=== PATIENT | male | born 1950 | race Caucasian/White ===

== ENCOUNTER 2023-01-14 12:19 | Inpatient (IN) ==
[~2023-01-14 12:19] MED LIST: SODIUM CHLORIDE 0.9% 1,000 ML IV ONE
[2023-01-14] MEDS ORDERED: OPTIRAY 320 500ml IV ONE (12:36)
--- NOTE | 2023-01-14 12:42 | CT Scan Report ---
CT head/brain wo con CLINICAL HISTORY: 72 years-old Male with neuro deficit, acute stroke suspected. Acute stroke like sy mptoms TECHNIQUE: Multiple axial CT images of the head were obtained without contrast. A dose lowering tech nique was utilized adhering to the principles of ALARA. COMPARISON: CTA head and neck of same day. FINDINGS: No acute intracranial hemorrhage, midline shift, intracranial mass, hydrocephalus, territorial ischem ia or abnormal extra-axial collection. Involutional changes with mild white matter hypodensities sugg estive of chronic microvascular ischemic disease. The calvarium is intact. Minimal mucosal thickening of the paranasal sinuses. The mastoid air cells are clear. Unremarkable soft tissues and orbits. IMPRESSION: No acute intracranial abnormality identified. ACT 112: Negative or not required by law. The above report was generated using voice recognition software. It may contain grammatical, syntax o r spelling errors. Electronically signed by: Tim Orantes M.D. 01/14/2023 12:41 PM
--- NOTE | 2023-01-14 12:56 | Emergency Department Note ---
Impression & Plan Stroke-like symptoms, Positive Lyme disease serology, Hypertension ED Provider Note NAME: FABIEN TOURE AGE: 72 SEX: M ARRIVES VIA: Ambulance INFORMANT: Patient ED PROVIDER(S): Galen Azevedo MD CHIEF COMPLAINT: facial numbness, aphasia, referred. PLAN: Disposition: Admit MEDICAL DECISION MAKING: The patient is a pleasant 72-year-old gentleman with a past medical history of hyperlipidemia, gout, arthritis and neuropathy, BPH who presents to the emergency department via EMS after being seen at his PCP office for evaluation of left facial numbness and left neck pain and dizziness with symptoms that began last night around 6 PM. 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 He reports after couple of hours he did take a aspirin and subsequent an hour later his neck pain resolved but the numbness in his left side of his face persisted. He further adds that he has been having trouble finding words at times but upon further discussion with the patient and his at the bedside it seems as this has been ongoing since the spring when he was diagnosed with COVID-19 and Lyme in the same month. He reports he had completed doxycycline and symptoms that persisted in terms of brain fog, malaise. Stroke alert was activated in the field per my discussion with EMS crew on medical command call to exclude the possibility of large vessel occlusion however given onset of symptoms last night he is outside of the TNK window. On my evaluation the patient is no acute distress, afebrile with blood pressure 180/100 and vital signs otherwise stable. He appears clinically dry. He reports subjective numbness of the left side of his face without overt objective weakness. He will intermittently exhibit some minor word finding difficulty for which he recovered. Otherwise he has no overt objective neurologic deficits. 5/5 strength and SILT x 4 extremities. Cerebellar function intact including [id number], alternating palms, [id number]. EKG without overt acute ischemia. CXR with suspicion for vascular congestion and otherwise likely atelectasis at the bases. WBC and platelets within normal limits. H/H 14.2/40.6, proximal to prior values. Platelets within normal limits. Chemistry without metabolic acidosis. Electrolytes and LFTs without significant abnormality. Patient's troponin 9.5, within normal limits. UA without evidence of infection. Lyme screen was positive for IgG and IgM antibody held in setting of his diagnosed Lyme in July of this year. CT of the head CT and head and neck performed negative for ICH, ischemia or severe narrowing or occlusion of large vessel. Patient was treated with IV fluid hydration and blood pressure subsequently improved to the 150s /70s. Given the patient's strokelike symptoms the patient is agree with plan for admission for further management. Case was discussed with Dr. Henderson, [facility] hospitalist, who will evaluate the pa tient for admission. Further management per admitting team. Triage Nursing notes reviewed and agree them. Prior/outside medical records reviewed Vital Signs: reviewed Differential diagnosis: Infection, dehydration, metabolic abnormality, hypo/hyperglycemia, electrolyte disturbance, anemia, hypoxia, cardiac sources, intracerebral event, toxicologic, neurologic, as well as other pathologies. ER treatment provided: See below. Diagnostics interpreted by me: ECG: Normal sinus rhythm, 61 bpm, incomplete right bundle branch block, no overt ST elevation or depression, QTc 465, QRS 106. Cardiac Monitoring: An order for continuous cardiac monitoring was placed and demonstrated Normal sinus rhythm, 61 bpm, no ectopy. Laboratory studies: See below Imaging studies: See below Consultation(s): Case was discussed with Dr. Henderson, [facility] hospitalist, who will evaluate the patient for admission. HPI: The patient is a pleasant 72-year-old gentleman with a past medical history of hyperlipidemia, gout, arthritis and neuropathy, BPH who presents to the emergency department via EMS after being seen at his PCP office for evaluation of left facial numbness and left neck pain and dizziness with symptoms that began last night around 6 PM. 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 He reports after couple of hours he did take a aspirin and subsequent an hour later his neck pain resolved but the numbness in his left side of his face persisted. He further adds that he has been having trouble finding words at times but upon further discussion with the patient and his at the bedside it seems as this has been ongoing since the spring when he was diagnosed with COVID-19 and Lyme in the same month. He reports he had completed doxycycline and symptoms that persisted in terms of brain fog, malaise. Stroke alert was activated in the field per my discussion with EMS crew on medical command call to exclude the possibility of large vessel occlusion however given onset of symptoms last night he is outside of the TNK window. ROS: See above HPI for pertinent positives & negatives. A total of 10 systems reviewed and were otherwise negative. VITALS:See Below PHYSICAL EXAMINATION: GENERAL: Awake, alert, fatigued-appearing, in no distress HENT: Normocephalic, atraumatic. EOMI. No nystamgus. PEARRL. Oropharynx with dry mucous membranes and otherwise unremarkable. EYES: Normal conjunctiva. Sclera non-icteric. EOMI. No nystamgus. PEARRL. NECK: Supple. No nuchal rigidity. FROM. No JVD. RESPIRATORY: Clear to auscultation. CARDIAC: Regular rate, normal rhythm. Extremities warm and well perfused. Pulses equal. ABDOMEN: Soft, non-distended. No tenderness to palpation. No rebound or guarding. No masses. RECTAL: Deferred. MUSCULOSKELETAL: Chest examination reveals no tenderness. The back is symmetrical on inspection without obvious abnormality. There is no CVA tenderness to palpation. No joint edema. LOWER EXTREMITIES: Calves are equal size bilaterally and non-tender. No edema. No discoloration. NEURO: No objective sensory or motor deficits noted. 5/5 strength and SILT x 4 extremities. Cerebellar function intact including nqlwfg-[id number], alternating palms, fwjh-ln-[id number]. SKIN: No rash or jaundice noted. Galen Azevedo MD Past Med/Surg History Medical History History of anesthesia reaction WITH APPENDECTOMY SURGERY WAS TOLD WOKE UP VIOLENT, DOES NOT REMEMBER History of gout History of prostate cancer RADIATION MAR 2020-APR 2020 Hypercholesterolemia Lumbar radiculopathy Nasal polyps hx of Neuropathy BOTH FEET Sleep apnea CPAP Spinal stenosis Stroke pt unaware Surgical History H/O elbow surgery X2 H/O knee surgery X1, ARTHROSCOPY History of appendectomy History of back surgery X2 History of carpal tunnel release of both wrists History of colonoscopy History of endoscopic sinus surgery Family History Brother No problems noted. Other No family history of adverse response to anesthesia No family history of bleeding disorder Social History Smoking Status: Never smoker Tobacco Type: Cigarettes Age Started Using Tobacco: 22; Age Quit Using Tobacco: 42; packs per day: 1.5; Cigarettes Per Day: 30; Second Hand Exposure: No; Do You Dip or Chew Tobacco: No; Hx Alcohol Use: Yes Alcohol type: beer and hard liquor Alcohol Intake Frequency: 2-3 x/Week Hx Substance Use: No Preferred Language: Barbadian Communication Ability: Effective Visual Impairment: Partially Limited Hearing Ability: Hard of Hearing Ventilation Equipment Tender Required: No Beliefs That Will Affect Care: None marital status: Current Living Situation: Spouse current occupational status: retired current occupation: retired as [employer] How many Children do You have: 1 Other Information That Helps Us Care for You: No Feels Safe at Home: Yes Safety Concerns: Feels Safe At This Time Childhood Exposure to Second-Hand Smoke: Yes caffeine: Yes (coffee once per day) during the past year weight has: remained stable Dental Care, Regularly: Yes Physical Activity Frequency: 1-2 Times per Week Seatbelt Use: always Sunscreen Use: No Assistive Devices: CPAP, Glasses and Hearing Aid - Bilateral Allergies Allergies Allergy/AdvReac Type Severity Reaction Status Date / Time oxycodone AdvReac Unknown Hallucinati Verified 10/27/22 11:48 ng Home Meds Home Medications Medication Instructions Recorded Confirmed allopurinol 100 mg tablet 100 mg PO BID 06/13/19 01/14/23 atorvastatin 20 mg tablet 20 mg PO HS 06/13/19 01/14/23 fluoxetine 20 mg tablet 10 mg PO QAM 06/13/19 01/14/23 gabapentin 300 mg capsule 400 mg PO TID 07/30/21 01/14/23 meloxicam 15 mg tablet 15 mg PO QAM 01/14/23 01/14/23 Previous Rx's Medication Instructions Recorded tamsulosin 0.4 mg capsule 0.4 mg PO BID #60 caps 09/22/21 azelastine 137 mcg (0.1 %) nasal 2 spray intranasal BID #30 mL 10/23/21 spray aerosol albuterol sulfate 90 mcg/actuation 2 inh inhalation Q6H PRN shortness 06/18/22 aerosol inhaler (Proventil HFA) of breath or wheezing #8.5 grams Results & Data (ED) Vital Signs Vital Signs - 24 hr 01/14/23 12:35 01/14/23 12:44 01/14/23 13:25 Pulse Rate 67 56 L Pulse Rate from SpO2 Sensor Pulse Rhythm Regular Pulse Strength Normal Respiratory Rate 14 Respiratory Effort / Characteristics Non-Labored Spontaneous Respiratory Depth Normal Respiratory Pattern Regular Blood Pressure 186/107 H Blood Pressure Mean 133 Pulse Oximetry 94 95 Oxygen Delivery Method Room Air Room Air Oxygen Flow Rate 0 Sepsis Recent Fever Within 48 Hours No Sepsis New/Unexplained Change in Mental Status No Sepsis Action Taken by Nursing No Action Required 01/14/23 13:07 01/14/23 13:23 01/14/23 13:23 Pulse Rate 62 Pulse Rate from SpO2 Sensor 60 66 Pulse Rhythm Pulse Strength Respiratory Rate 20 Respiratory Effort / Characteristics Respiratory Depth Respiratory Pattern Blood Pressure 157/76 H Blood Pressure Mean 103 Pulse Oximetry 98 97 Oxygen Delivery Method Oxygen Flow Rate Sepsis Recent Fever Within 48 Hours Sepsis New/Unexplained Change in Mental Status Sepsis Action Taken by Nursing 01/14/23 13:30 Pulse Rate 54 L Pulse Rate from SpO2 Sensor 55 L Pulse Rhythm Pulse Strength Respiratory Rate 20 Respiratory Effort / Characteristics Respiratory Depth Respiratory Pattern Blood Pressure Blood Pressure Mean Pulse Oximetry 96 Oxygen Delivery Method Oxygen Flow Rate Sepsis Recent Fever Within 48 Hours Sepsis New/Unexplained Change in Mental Status Sepsis Action Taken by Nursing Laboratory Data Attestation: I reviewed the patient's lab results. 01/14/23 12:47 01/14/23 12:47 Lab Results 01/14/23 01/14/23 01/14/23 Range/Units 12:44 12:47 12:47 WBC 7.27 (4.8-10.8) K/ul RBC 4.30 L (4.70-6.10) M/uL Hgb 14.2 (14.0-18.0) g/dl POC Hgb (14.0-18.0) g/dl Hct 40.6 L (42.0-52.0) % POC Hct (42-52) % MCV 94.4 (80.0-100.0) fL MCH 33.0 (25.0-34.0) pg MCHC 35.0 (32.0-36.0) g/dL RDW Std Deviation 47.0 H (36.4-46.3) fL RDW Coeff of Sonia 13.5 (11.5-14.5) % Plt Count 133 (130-400) K/uL MPV 10.6 (9.4-12.4) fL Immature Gran % (Auto) 0.3 % Neut % (Auto) 63.4 % Lymph % (Auto) 21.7 % [place] % (Auto) 11.8 % Eos % (Auto) 2.5 % Baso % (Auto) 0.3 % Neut # (Auto) 4.61 (1.40-6.50) K/uL Lymph # (Auto) 1.58 (1.20-3.40) K/uL [place] # (Auto) 0.86 H (0.11-0.59) K/uL Eos # (Auto) 0.18 (0.00-0.50) K/uL Baso # (Auto) 0.02 (0.00-0.20) K/uL Immature Gran # (Auto) 0.02 (0.01-0.20) K/uL PT 11.7 (9.0-12.0) Seconds INR 1.1 (0.9-1.1) APTT 27.3 (21.0-31.0) Seconds PTT Ratio 1.0 POC Sodium (135-144) mmol/L Sodium (136-145) mmol/L POC Potassium (3.3-5.0) mmol/L Potassium (3.5-5.1) mmol/L POC Chloride (101-112) mmol/L Chloride (98-107) mmol/L Carbon Dioxide (21-32) mmol/L POC Total CO2 (24-31) mmol/L Anion Gap (3-11) POC Anion Gap (16-25) mmol/L POC BUN (7-18) mg/dl BUN (6-23) mg/dl Creatinine (0.6-1.4) mg/dl POC Creatinine (0.6-1.3) mg/dl Est Cr Clr Drug Dosing ml/min Est GFR ( Amer) ml/min Est GFR (Non-Af Amer) ml/min BUN/Creatinine Ratio (10-20) Glucose (70-99(Fasting)) mg/dl POC Glucose 90 (70-99) mg/dl POC Glucose (other) (70-99) mg/dl Calcium (8.6-10.3) mg/dl POC Ioniz Calcium Daisy (1.12-1.32) mmol/l Magnesium (1.7-2.4) mg/dl Total Bilirubin (0.2-1.0) mg/dl AST (13-39) U/L ALT (7-52) U/L Alkaline Phosphatase (34-104) U/L Troponin I High Sens (0-20) pg/ml Total Protein (6.0-8.3) gm/dl Albumin (3.4-5.0) gm/dl Globulin (2.5-4.0) gm/dl Albumin/Globulin Ratio (0.9-2) Urine Color Urine Appearance (Clear) Urine pH (4.5-7.5) Ur Specific [place] (1.000-1.030) Urine Protein (Negative) Urine Glucose (UA) (Negative) Urine Ketones (Negative) Urine Blood (Negative) Urine Nitrite (Negative) Urine Bilirubin (Negative) Urine Urobilinogen (Negative) Ur Leukocyte Esterase (Negative) Lyme Disease IgG Ab (Negative) Lyme Disease IgM Ab (Negative) 01/14/23 01/14/23 01/14/23 Range/Units 12:47 12:47 12:51 WBC (4.8-10.8) K/ul RBC (4.70-6.10) M/uL Hgb (14.0-18.0) g/dl POC Hgb 13.9 L (14.0-18.0) g/dl Hct (42.0-52.0) % POC Hct 41 L (42-52) % MCV (80.0-100.0) fL MCH (25.0-34.0) pg MCHC (32.0-36.0) g/dL RDW Std Deviation (36.4-46.3) fL RDW Coeff of Sonia (11.5-14.5) % Plt Count (130-400) K/uL MPV (9.4-12.4) fL Immature Gran % (Auto) % Neut % (Auto) % Lymph % (Auto) % [place] % (Auto) % Eos % (Auto) % Baso % (Auto) % Neut # (Auto) (1.40-6.50) K/uL Lymph # (Auto) (1.20-3.40) K/uL [place] # (Auto) (0.11-0.59) K/uL Eos # (Auto) (0.00-0.50) K/uL Baso # (Auto) (0.00-0.20) K/uL Immature Gran # (Auto) (0.01-0.20) K/uL PT (9.0-12.0) Seconds INR (0.9-1.1) APTT (21.0-31.0) Seconds PTT Ratio POC Sodium 142 (135-144) mmol/L Sodium 140 (136-145) mmol/L POC Potassium 4.1 (3.3-5.0) mmol/L Potassium 4.1 (3.5-5.1) mmol/L POC Chloride 103 (101-112) mmol/L Chloride 106 (98-107) mmol/L Carbon Dioxide 27 (21-32) mmol/L POC Total CO2 30 (24-31) mmol/L Anion Gap 7 (3-11) POC Anion Gap 14.0 L (16-25) mmol/L POC BUN 15 (7-18) mg/dl BUN 14 (6-23) mg/dl Creatinine 1.16 (0.6-1.4) mg/dl POC Creatinine 1.2 (0.6-1.3) mg/dl Est Cr Clr Drug Dosing 81.0 ml/min Est GFR ( Amer) 73.5 ml/min Est GFR (Non-Af Amer) 63.5 ml/min BUN/Creatinine Ratio 12.1 (10-20) Glucose 86 (70-99(Fasting)) mg/dl POC Glucose (70-99) mg/dl POC Glucose (other) 83 (70-99) mg/dl Calcium 9.4 (8.6-10.3) mg/dl POC Ioniz Calcium Daisy 1.15 (1.12-1.32) mmol/l Magnesium 1.8 (1.7-2.4) mg/dl Total Bilirubin 1.1 H (0.2-1.0) mg/dl AST 24 (13-39) U/L ALT 25 (7-52) U/L Alkaline Phosphatase 81 (34-104) U/L Troponin I High Sens 9.5 (0-20) pg/ml Total Protein 7.0 (6.0-8.3) gm/dl Albumin 4.5 (3.4-5.0) gm/dl Globulin 2.5 (2.5-4.0) gm/dl Albumin/Globulin Ratio 1.8 (0.9-2) Urine Color Urine Appearance (Clear) Urine pH (4.5-7.5) Ur Specific [place] (1.000-1.030) Urine Protein (Negative) Urine Glucose (UA) (Negative) Urine Ketones (Negative) Urine Blood (Negative) Urine Nitrite (Negative) Urine Bilirubin (Negative) Urine Urobilinogen (Negative) Ur Leukocyte Esterase (Negative) Lyme Disease IgG Ab Positive A (Negative) Lyme Disease IgM Ab Positive A (Negative) 01/14/23 Range/Units 13:19 WBC (4.8-10.8) K/ul RBC (4.70-6.10) M/uL Hgb (14.0-18.0) g/dl POC Hgb (14.0-18.0) g/dl Hct (42.0-52.0) % POC Hct (42-52) % MCV (80.0-100.0) fL MCH (25.0-34.0) pg MCHC (32.0-36.0) g/dL RDW Std Deviation (36.4-46.3) fL RDW Coeff of Sonia (11.5-14.5) % Plt Count (130-400) K/uL MPV (9.4-12.4) fL Immature Gran % (Auto) % Neut % (Auto) % Lymph % (Auto) % [place] % (Auto) % Eos % (Auto) % Baso % (Auto) % Neut # (Auto) (1.40-6.50) K/uL Lymph # (Auto) (1.20-3.40) K/uL [place] # (Auto) (0.11-0.59) K/uL Eos # (Auto) (0.00-0.50) K/uL Baso # (Auto) (0.00-0.20) K/uL Immature Gran # (Auto) (0.01-0.20) K/uL PT (9.0-12.0) Seconds INR (0.9-1.1) APTT (21.0-31.0) Seconds PTT Ratio POC Sodium (135-144) mmol/L Sodium (136-145) mmol/L POC Potassium (3.3-5.0) mmol/L Potassium (3.5-5.1) mmol/L POC Chloride (101-112) mmol/L Chloride (98-107) mmol/L Carbon Dioxide (21-32) mmol/L POC Total CO2 (24-31) mmol/L Anion Gap (3-11) POC Anion Gap (16-25) mmol/L POC BUN (7-18) mg/dl BUN (6-23) mg/dl Creatinine (0.6-1.4) mg/dl POC Creatinine (0.6-1.3) mg/dl Est Cr Clr Drug Dosing ml/min Est GFR ( Amer) ml/min Est GFR (Non-Af Amer) ml/min BUN/Creatinine Ratio (10-20) Glucose (70-99(Fasting)) mg/dl POC Glucose (70-99) mg/dl POC Glucose (other) (70-99) mg/dl Calcium (8.6-10.3) mg/dl POC Ioniz Calcium Daisy (1.12-1.32) mmol/l Magnesium (1.7-2.4) mg/dl Total Bilirubin (0.2-1.0) mg/dl AST (13-39) U/L ALT (7-52) U/L Alkaline Phosphatase (34-104) U/L Troponin I High Sens (0-20) pg/ml Total Protein (6.0-8.3) gm/dl Albumin (3.4-5.0) gm/dl Globulin (2.5-4.0) gm/dl Albumin/Globulin Ratio (0.9-2) Urine Color Yellow Urine Appearance Clear (Clear) Urine pH 7.5 (4.5-7.5) Ur Specific [place] 1.026 (1.000-1.030) Urine Protein Negative (Negative) Urine Glucose (UA) Negative (Negative) Urine Ketones Negative (Negative) Urine Blood Negative (Negative) Urine Nitrite Negative (Negative) Urine Bilirubin Negative (Negative) Urine Urobilinogen Negative (Negative) Ur Leukocyte Esterase Negative (Negative) Lyme Disease IgG Ab (Negative) Lyme Disease IgM Ab (Negative) Administered Medications Allopurinol (Allopurinol 100 Mg Tab) 100 mg PO BID RADHA Stop: 02/13/23 20:59 Last Admin: 01/14/23 21:42 Dose: 100 mg Documented By: Atorvastatin Calcium (Atorvastatin 20 Mg Tab) 20 mg PO HS RADHA Stop: 02/13/23 20:59 Last Admin: 01/14/23 21:42 Dose: 20 mg Documented By: Gabapentin (Gabapentin 400 Mg Cap) 400 mg PO TID RADHA Stop: 02/13/23 20:59 Last Admin: 01/14/23 21:42 Dose: 400 mg Documented By: Tamsulosin HCl (Tamsulosin Hcl 0.4 Mg Cap) 0.4 mg PO BID RADHA Stop: 02/13/23 20:59 Last Admin: 01/14/23 21:42 Dose: 0.4 mg Documented By: Discontinued Medications Sodium Chloride (Nss) 1,000 mls @ 999 mls/hr IV .Q1H1M ONE Stop: 01/14/23 13:15 Last Infusion: 01/14/23 19:09 Dose: 0 mls/hr Documented By: Admin: 01/14/23 12:47 Dose: 999 mls/hr Documented By: OAM Doxycycline Hyclate 100 mg/ (Dextrose) 100 mls @ 50 mls/hr IV NOW STA Stop: 01/14/23 16:41 Last Infusion: 01/14/23 19:09 Dose: 0 mls/hr Documented By: Admin: 01/14/23 15:24 Dose: 50 mls/hr Documented By: CPB Ioversol (Optiray 320 500ml) 108 ml IV ONCE ONE Stop: 01/14/23 12:37 Last Admin: 01/14/23 12:37 Dose: 108 ml Documented By: KSF Imaging Data Radiologist's Impression: Chest X-Ray 01/14/23 12:15 SINGLE VIEW CHEST CLINICAL HISTORY: Neurological deficit. Stroke like symptoms. FINDINGS: An AP, portable, upright chest radiograph is compared to study dated 06/18/2022. The examination is degraded by portable technique and apical lordotic positioning. The heart is enlarged. There is pulmonary vascular congestion. There are bibasilar airspace opacities. No large pleural effusion or pneumothorax is seen. The skeletal structures are osteopenic. The bony thorax is grossly intact. IMPRESSION: 1. Cardiomegaly with pulmonary vascular congestion. 2. Dependent airspace opacities likely represent atelectasis. Correlate clinically ACT 112: Negative or not required by law. Electronically signed by: Deuce Em M.D. 01/14/2023 1:[address] 01/14/23 12:15 CT head/brain wo con CLINICAL HISTORY: 72 years-old Male with neuro deficit, acute stroke suspected. Acute stroke like symptoms TECHNIQUE: Multiple axial CT images of the head were obtained without contrast. A dose lowering technique was utilized adhering to the principles of ALARA. COMPARISON: CTA head and neck of same day. FINDINGS: No acute intracranial hemorrhage, midline shift, intracranial mass, hydrocephalus, territorial ischemia or abnormal extra-axial collection. Involutional changes with mild white matter hypodensities suggestive of chronic microvascular ischemic disease. The calvarium is intact. Minimal mucosal thickening of the paranasal sinuses. The mastoid air cells are clear. Unremarkable soft tissues and orbits. IMPRESSION: No acute intracranial abnormality identified. ACT 112: Negative or not required by law. The above report was generated using voice recognition software. It may contain grammatical, syntax or spelling errors. Electronically signed by: Tim Orantes M.D. 01/14/2023 12:41 PM Head CTA 01/14/23 12:15 CT ANGIOGRAM OF THE BRAIN; CT ANGIOGRAM OF THE NECK CLINICAL HISTORY: Neurological deficit. Stroke like symptoms. COMPARISON STUDY: Unenhanced CT of the brain performed concurrently and 01/14/2023. TECHNIQUE: Following the IV administration of 108 of Optiray 320, CT angiogram of the head and neck was performed from the aortic arch to the vertex. Images are reviewed in the axial, sagittal, and coronal planes. 3-D MIPS images are created and assessed. IV contrast was administered without complication. All measurements were calculated based on NASCET criteria. A dose lowering duane hnique was utilized adhering to the principles of ALARA. CT DOSE: 1465.91 mGy.cm FINDINGS: Brain parenchyma: There is age-related involutional change noting mild subcortical and periventricular microangiopathic disease. There is no evidence of hemorrhage, mass effect, or acute territorial ischemia noting angiographic phase technique. There is no evidence of enhancing mass lesion on the angiogram phase images. The ventricles, sulci, and cisterns are prominent secondary to involutional change. Toribio-white matter differentiation is preserved. No extra- axial fluid collection is seen. Thoracic aorta: Visualized portions of the thoracic aorta are normal in caliber. The aortic arch demonstrates standard 3-vessel anatomy. Right carotid arterial system: The right common carotid artery is widely patent, as are the right internal and external carotid arteries. Calcified plaque is noted in the carotid bulb. Left carotid arterial system: The left common carotid artery is widely patent, as are the left internal and external carotid arteries. Calcified plaque is noted in the carotid bulb. Vertebral arteries: The vertebral arteries are widely patent bilaterally noting left-sided dominance. Subclavian arteries: Widely patent bilaterally. Intracranial vasculature: The internal carotid arteries are patent at the skull base, as are the anterior and middle cerebral arteries bilaterally. The vertebrobasilar system and posterior cerebral arteries are widely patent. The left vertebral artery is dominant. There is a left posterior communicating artery. There is no aneurysm, high-grade stenosis, or focal vessel cut off seen throughout the intracranial circulation. Jugular veins: Patent bilaterally. Dural sinuses: Patent. Lung apices: Partially visualized upper lobe lung parenchyma appears clear. Soft tissues: The visualized pharyngeal soft tissues are normal in appearance noting angiographic phase technique. The oropharyngeal airway appears widely patent. The salivary and thyroid glands are normal in appearance. No cervical lymphadenopathy is seen. Skeletal structures: The skeletal structures are osteopenic. The calvarium roberto ears intact. The cervical spine is maintained noting multilevel spondylosis. No lytic or blastic lesion is seen. Orbits: The bony orbits are intact. Orbital contents are normal as visualized. Sinuses and mastoids: There is mild mucosal thickening within the maxillary antra. Trace mucosal thickening is noted in the frontal, ethmoid, and sphenoid s inuses. The mastoid air cells are well pneumatized. IMPRESSION: 1. There is no evidence of hemorrhage, mass effect, or acute territorial ischemia noting angiographic phase technique. 2. Unremarkable CT angiogram of the brain. 3. Unremarkable CT angiogram of the neck. ACT 112: Negative or not required by law. Electronically signed by: Deuce Em M.D. 01/14/2023 12:55 PM Neck CTA 01/14/23 12:15 CT ANGIOGRAM OF THE BRAIN; CT ANGIOGRAM OF THE NECK CLINICAL HISTORY: Neurological deficit. Stroke like symptoms. COMPARISON STUDY: Unenhanced CT of the brain performed concurrently and 01/14/2023. TECHNIQUE: Following the IV administration of 108 of Optiray 320, CT angiogram of the head and neck was performed from the aortic arch to the vertex. Images are reviewed in the axial, sagittal, and coronal planes. 3-D MIPS images are created and assessed. IV contrast was administered without complication. All measurements were calculated based on NASCET criteria. A dose lowering technique was utilized adhering to the principles of ALARA. CT DOSE: 1465.91 mGy.cm FINDINGS: Brain parenchyma: There is age-related involutional change noting mild subco rtical and periventricular microangiopathic disease. There is no evidence of hemorrhage, mass effect, or acute territorial ischemia noting angiographic phase technique. There is no evidence of enhancing mass lesion on the angiogram phase images. The ventricles, sulci, and cisterns are prominent secondary to involutional change. Toribio-white matter differentiation is preserved. No extra- axial fluid collection is seen. Thoracic aorta: Visualized portions of the thoracic aorta are normal in caliber. The aortic arch demonstrates standard 3-vessel anatomy. Right carotid arterial system: The right common carotid artery is widely patent, as are the right internal and external carotid arteries. Calcified plaque is noted in the carotid bulb. Left carotid arterial system: The left common carotid artery is widely patent, as are the left internal and external carotid arteries. Calcified plaque is noted in the carotid bulb. Vertebral arteries: The vertebral arteries are widely patent bilaterally noting left-sided dominance. Subclavian arteries: Widely patent bilaterally. Intracranial vasculature: The internal carotid arteries are patent at the skull base, as are the anterior and middle cerebral arteries bilaterally. The vertebrobasilar system and posterior cerebral arteries are widely patent. The left vertebral artery is dominant. There is a left posterior communicating artery. There is no aneurysm, high-grade stenosis, or focal vessel cut off seen throughout the intracranial circulation. Jugular veins: Patent bilaterally. Dural sinuses: Patent. Lung apices: Partially visualized upper lobe lung parenchyma appears clear. Soft tissues: The visualized pharyngeal soft tissues are normal in appearance noting angiographic phase technique. The oropharyngeal airway appears widely patent. The salivary and thyroid glands are normal in appearance. No cervical lymphadenopathy is seen. Skeletal structures: The skeletal structures are osteopenic. The calvarium appears intact. The cervical spine is maintained noting multilevel spondylosis. No lytic or blastic lesion is seen. Orbits: The bony orbits are intact. Orbital contents are normal as visualized. Sinuses and mastoids: There is mild mucosal thickening within the maxillary antra. Trace mucosal thickening is noted in the frontal, ethmoid, and sphenoid sinuses. The mastoid air cells are well pneumatized. IMPRESSION: 1. There is no evidence of hemorrhage, mass effect, or acute territorial ischemia noting angiographic phase technique. 2. Unremarkable CT angiogram of the brain. 3. Unremarkable CT angiogram of the neck. ACT 112: Negative or not required by law. Electronically signed by: Deuce Em M.D. 01/14/2023 12:55 PM Discharge Plan Visit Data Chief Complaint: Stroke Alert Stated Complaint: STROKE ALERT ED Provider: Galen Azevedo Discharge Problem: Stroke-like symptoms, Positive Lyme disease serology, Hypertension Patient Disposition: Admitted As Inpatient Discharge Instructions Interventions: ED Discharge Assessment Last Done: 01/14/23 16:17
--- NOTE | 2023-01-14 12:57 | CT Scan Report ---
CT ANGIOGRAM OF THE BRAIN; CT ANGIOGRAM OF THE NECK CLINICAL HISTORY: Neurological deficit. Stroke like symptoms. COMPARISON STUDY: Unenhanced CT of the brain performed concurrently and 01/14/2023. TECHNIQUE: Following the IV administration of 108 of Optiray 320, CT angiogram of the head and neck w as performed from the aortic arch to the vertex. Images are reviewed in the axial, sagittal, and bolivar nal planes. 3-D MIPS images are created and assessed. IV contrast was administered without complicati on. All measurements were calculated based on NASCET criteria. A dose lowering technique was utilize d adhering to the principles of ALARA. CT DOSE: 1465.91 mGy.cm FINDINGS: Brain parenchyma: There is age-related involutional change noting mild subcortical and periventricula r microangiopathic disease. There is no evidence of hemorrhage, mass effect, or acute territorial isc hemia noting angiographic phase technique. There is no evidence of enhancing mass lesion on the angio gram phase images. The ventricles, sulci, and cisterns are prominent secondary to involutional change . Toribio-white matter differentiation is preserved. No extra-axial fluid collection is seen. Thoracic aorta: Visualized portions of the thoracic aorta are normal in caliber. The aortic arch demo nstrates standard 3-vessel anatomy. Right carotid arterial system: The right common carotid artery is widely patent, as are the right int ernal and external carotid arteries. Calcified plaque is noted in the carotid bulb. Left carotid arterial system: The left common carotid artery is widely patent, as are the left international representative al and external carotid arteries. Calcified plaque is noted in the carotid bulb. Vertebral arteries: The vertebral arteries are widely patent bilaterally noting left-sided dominance. Subclavian arteries: Widely patent bilaterally. Intracranial vasculature: The internal carotid arteries are patent at the skull base, as are the ante rior and middle cerebral arteries bilaterally. The vertebrobasilar system and posterior cerebral elizabeth giorgi are widely patent. The left vertebral artery is dominant. There is a left posterior communicatin g artery. There is no aneurysm, high-grade stenosis, or focal vessel cut off seen throughout the intr acranial circulation. Jugular veins: Patent bilaterally. Dural sinuses: Patent. Lung apices: Partially visualized upper lobe lung parenchyma appears clear. Soft tissues: The visualized pharyngeal soft tissues are normal in appearance noting angiographic pha se technique. The oropharyngeal airway appears widely patent. The salivary and thyroid glands are nor mal in appearance. No cervical lymphadenopathy is seen. Skeletal structures: The skeletal structures are osteopenic. The calvarium appears intact. The cervic al spine is maintained noting multilevel spondylosis. No lytic or blastic lesion is seen. Orbits: The bony orbits are intact. Orbital contents are normal as visualized. Sinuses and mastoids: There is mild mucosal thickening within the maxillary antra. Trace mucosal thic kening is noted in the frontal, ethmoid, and sphenoid sinuses. The mastoid air cells are well pneumat ized. IMPRESSION: 1. There is no evidence of hemorrhage, mass effect, or acute territorial ischemia noting angiographic phase technique. 2. Unremarkable CT angiogram of the brain. 3. Unremarkable CT angiogram of the neck. ACT 112: Negative or not required by law. Electronically signed by: Deuce Em M.D. 01/14/2023 12:55 PM
[2023-01-14 12:59] LABS: Basophils # (auto) 0.02 K/uL (0.00-0.20); Basophils % (auto) 0.3 %; Eosinophils # (auto) 0.18 K/uL (0.00-0.50); Eosinophils % (auto) 2.5 %; Hematocrit (blood only) 40.6 % (42.0-52.0); Hemoglobin 14.2 g/dl (14.0-18.0); Immature Granulocytes # (auto) 0.02 K/uL (0.01-0.20); Immature Granulocytes % (auto) 0.3 %; Lymphocytes # (auto) 1.58 K/uL (1.20-3.40); Lymphocytes % (auto) 21.7 %; Mean Corpuscular Volume 94.4 fL (80.0-100.0); Mean Platelet Volume 10.6 fL (9.4-12.4); Monocytes # (auto) 0.86 K/uL (0.11-0.59); Monocytes % (auto) 11.8 %; Neutrophils # (auto) 4.61 K/uL (1.40-6.50); Neutrophils % (auto) 63.4 %; Platelet Count 133 K/uL (130-400); RDW Coefficient of Variation 13.5 % (11.5-14.5); White Blood Count 7.27 K/ul (4.8-10.8)
--- NOTE | 2023-01-14 13:04 | XRay Report ---
SINGLE VIEW CHEST CLINICAL HISTORY: Neurological deficit. Stroke like symptoms. FINDINGS: An AP, portable, upright chest radiograph is compared to study dated 06/18/2022. The examina tion is degraded by portable technique and apical lordotic positioning. The heart is enlarged. There is pulmonary vascular congestion. There are bibasilar airspace opacities. No large pleural effusion or pneumothorax is seen. The skeletal structures are osteopenic. The bony thorax is grossly intact. IMPRESSION: 1. Cardiomegaly with pulmonary vascular congestion. 2. Dependent airspace opacities likely represent atelectasis. Correlate clinically ACT 112: Negative or not required by law. Electronically signed by: Deuce Em M.D. 01/14/2023 1:03 PM
[2023-01-14 13:05] LABS: iSTAT Creatinine 1.2 mg/dl (0.6-1.3); iSTAT Hemoglobin 13.9 g/dl (14.0-18.0); iSTAT Ionized Calcium 1.15 mmol/l (1.12-1.32); iSTAT Potassium 4.1 mmol/L (3.3-5.0)
[2023-01-14 13:17] LABS: INR 1.1 (0.9-1.1); Partial Thromboplastin Time 27.3 Seconds (21.0-31.0); Prothrombin Time 11.7 Seconds (9.0-12.0)
--- NOTE | 2023-01-14 13:55 | History & Physical Report ---
Date of Service January 14, 2023 Assessment & Plan (1) Stroke-like symptoms: Plan: Strokelike symptoms Left-sided neck pain, some left-sided facial tingling which began evening prior to presentation at time of bedside patient denies dysarthria, reports he did not have any focal arm or leg weakness but felt globally weak and dizzy when standing Hypertensive over 180 in the ER, improved to 150s without antihypertensives CTA head and neck without acute pathology, CT of the head without acute findings MRI pending Patient is nearing 24 hours out from initial onset of symptoms, target blood pressure goal less than 180 Creatinine is normal, if needed can start losartan 25 mg daily for hypertension Echo pending for CVA eval May advance diet if passes bedside swallow (2) Hypertension: Plan: spontaneously improved to 150s without treatment. Patient onset of symptoms evening prior to presentation, he is nearly outside of window for permissive hypertension even if there were CVA Goal BP less than 180 Add losartan if rising above 180 as known Admitted to medical telemetry for CVA eval (3) Chest pain: Plan: Patient reports he had some chest tightness which lasted for about an hour evening prior, was not associated with dyspnea and resolved after taking aspirin No prior history of cardiac disease, denies exertional angina. No symptoms at site of his episode last night EKG with no acute ischemic findings, incomplete right bundle redemonstrated High-sensitivity troponin is normal Echo with bubble study pending for CVA eval as above Follow on medical telemetry. No signs of ACS and patient is chest free at time of admission. No indication for heparinization at time of assessment (4) Lumbar radiculopathy: Plan: No acute change (5) Neuropathy: Plan: Noted, chronic in lower extremities bilaterally without acute change. (6) Lyme disease: Plan: Lyme IgG is positive, patient has prior exposure to Lyme with positive IgG/IgM 07/21/22 IgM is +01/14. ? Cross-reactivity versus reexposure/reinfection, Western blot is pending Patient has not a fever/chills or rash but has pulled several ticks off his dogs Due to IgM being positive we will treat with Doxy twice daily IV pending Western blot. If Western blot is not consistent with Lyme discontinue at that time. Plan DVT prophylaxis: Lovenox Disposition: Medical telemetry Diet: Heart healthy CODE STATUS: Full History of Present Illness Primary Care Provider: Anisha Powells Cooper is a 72-year-old male with a past medical history of asthma, lumbar radiculopathy, nasal turbinate hypertrophy, prostate cancer, gout, and hearing loss who presents from PCP office after developing left facial numbness left left neck pain, dizziness last night around 6 PM and he was found to be hypertensive to 180/100s. He was recommended for core ER stroke evaluation. Due to last known well being over 18 hours prior TNKase was not indicated, but patient was evaluated as a stroke alert in the ER. At ER assessment he has symmetrical strength and sensation neuro: BP 130s normally. 180s/110s yesterday and today. Last night around 6pm started to develop pain in his L neck, about a 2 inch strip which felt really irritated in the L neck. BP was elevated. Took an aspirin x1 around 9pm, 10pm pain was gone. Went to see Dr. Vick trevino and still was hypertensive and then seemed very weak and lighthead which is abnormal for him. Recommended he be seen in ER. Trish thinks he has a little R lip droop this AM, did not have any facial deficits or vision change last night. Pt senses some slight tingling of the L cheek/cheondoism this morning but no numbness. ++Lightheadedness, + headache. No pain that traveled down the arm No ches tpain. he did not notice any shortness or breath. Thinks he may have has some chest tightness which lasted about an hour 'not bad maybe a 4/10'. Not present currently Has been taking mobic for shoulder and back pain, chronic. Does not take any bloo dpressure medications, no prior history of HTN. Medical History: Reviewed Medications: Reviewed Surgical History: Reviewed Family history: Reviewed Allergies: Reviewed. NKMA. Social History: No tobacco product use. Drinks etoh on the weekends.No hx of withdawal. Code Status: Full Code Allergies Allergy/AdvReac Type Severity Reaction Status Date / Time oxycodone AdvReac Unknown Hallucinati Verified 10/27/22 11:48 ng Home Medications Medication Instructions Recorded Confirmed Type allopurinol 100 mg tablet 100 mg PO BID 06/13/19 01/14/23 History atorvastatin 20 mg tablet 20 mg PO HS 06/13/19 01/14/23 History fluoxetine 20 mg tablet 10 mg PO QAM 06/13/19 01/14/23 History gabapentin 300 mg capsule 400 mg PO TID 07/30/21 01/14/23 History tamsulosin 0.4 mg capsule 0.4 mg PO BID #60 caps 09/22/21 01/14/23 Rx azelastine 137 mcg (0.1 %) nasal 2 spray intranasal BID #30 mL 10/23/21 01/14/23 Rx spray aerosol albuterol sulfate 90 mcg/actuation 2 inh inhalation Q6H PRN shortness 06/18/22 01/14/23 Rx aerosol inhaler (Proventil HFA) of breath or wheezing #8.5 grams meloxicam 15 mg tablet 15 mg PO QAM 01/14/23 01/14/23 History Past Med/Surg History Medical History (Updated 01/14/23 @ 14:08 by Iban Henderson MD) History of anesthesia reaction WITH APPENDECTOMY SURGERY WAS TOLD WOKE UP VIOLENT, DOES NOT REMEMBER History of gout History of prostate cancer RADIATION MAR 2020-APR 2020 Hypercholesterolemia Lumbar radiculopathy Nasal polyps hx of Neuropathy BOTH FEET Sleep apnea CPAP Spinal stenosis Stroke pt unaware Surgical History H/O elbow surgery X2 H/O knee surgery X1, ARTHROSCOPY History of appendectomy History of back surgery X2 History of carpal tunnel release of both wrists History of colonoscopy History of endoscopic sinus surgery Family History Brother No problems noted. 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 NAD. Cooperative. HEENT: Atraumatic, normocephalic. Pulm: CTAB A&P. -wheezes, -rales, -rhonchi. Symmetrical chest rise. No increased work of breathing. No respiratory distress. Cardiac: RRR, -mrg. Radial pulses intact and symmetrical. Abdominal: Nontender, nondistended, soft. BS present. Diminished sensation of soft touch and left greater than right foot bilaterally at baseline due to history of neuropathy. No acute change per patient. 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 No facial asymmetry noted at time of assessment, V1/V2/V3 intact bilaterally pupils equal and reactive to light, no visual field cuts hearing grossly intact Results & Data Results & Data Vital Signs (Past 12 Hours) Vital Signs Pulse Resp BP Pulse Ox O2 Del Method O2 Flow Rate 01/14/23 13:25 56 L 01/14/23 12:44 95 Room Air 0 01/14/23 12:35 67 14 186/107 H 94 Room Air PG Care Time/CCT Total # of Minutes Spent Total Time Spent with Patient: Total time spent is greater than 50% in coordination of care (as documented) at patient's floor/unit and/or counseling patient: Coding Level of Care Code 12209 INT INP/OBS CARE 3/75MIN Diagnoses Stroke-like symptoms R29.90 Hypertension I10 Chest pain R07.9 Chest pain type: unspecified Lumbar radiculopathy M54.16 Neuropathy G62.9 Lyme disease A69.20 (3) Chest pain Chest pain type: unspecified Qualified Code(s): R07.9 - Chest pain, unspecified
--- NOTE | 2023-01-14 13:59 | Electrocardiogram Report ---
Test Reason : Blood Pressure : / mmHG Vent. Rate : 061 BPM Atrial Rate : 061 BPM P-R Int : 144 ms QRS Dur : 106 ms QT Int : 462 ms P-R-T Axes : 048 011 055 degrees QTc Int : 465 ms Normal sinus rhythm Incomplete right bundle branch block Borderline ECG When compared with ECG of 18-JUN-2022 17:13, Incomplete right bundle branch block has replaced Right bundle branch block Confirmed by Remington Lizarraga ([id number]) on 01/14/2023 1:58:44 PM Referred By: REFERRED SELF Confirmed By:Remington Lizarraga
[2023-01-14 14:06] LABS: Albumin Level 4.5 gm/dl (3.4-5.0); Bilirubin,Total 1.1 mg/dl (0.2-1.0); Calcium 9.4 mg/dl (8.6-10.3); Magnesium 1.8 mg/dl (1.7-2.4); Potassium 4.1 mmol/L (3.5-5.1)
[2023-01-14 14:08] LABS: Lyme Ab IgG w/WB Rflx Positive (Negative); Lyme Ab IgM w/WB Rflx Positive (Negative)
[2023-01-14 14:11] LABS: Albumin Globulin Ratio 1.8 (0.9-2); BUN Creatinine Ratio 12.1 (10-20); Est GFR (African American) 73.5 ml/min; Est GFR (Non-African American) 63.5 ml/min; Globulin 2.5 gm/dl (2.5-4.0)
[2023-01-14 14:15] LABS: Troponin I High Sensitivity 9.5 pg/ml (0-20)
[2023-01-14 14:28] LABS: Appearance Urine Clear (Clear); Bilirubin Urine Negative (Negative); Blood Urine Negative (Negative); Color Urine Yellow; Glucose Urine UA Negative (Negative); Ketones Urine Negative (Negative); Leukocyte Esterase Urine Negative (Negative); Nitrite Urine Negative (Negative); Protein Urine Negative (Negative); Specific Gravity Urine 1.026 (1.000-1.030); Urobilinogen Urine Negative (Negative); pH Urine 7.5 (4.5-7.5)
[2023-01-14] MEDS ORDERED: DOXYCYCLINE HYCLATE 100 MG in DEXTROSE 5% MINI-B 100 ML IV STA (14:42)
[2023-01-14] MEDS ORDERED: PHARMACIST DISCHARGE MED REC CONSULT PRN (16:33)
[2023-01-14] MEDS ORDERED: ACETAMINOPHEN 325 MG TAB PO PRN (16:33)
[2023-01-14] MEDS ORDERED: ALBUTEROL HFA 8 GM INHALER INH PRN (16:33)
[2023-01-14] MEDS ORDERED: ATORVASTATIN 20 MG TAB PO SCH (21:00)
[2023-01-14] MEDS: TAMSULOSIN HCL 0.4 MG CAP PO SCH (21:42)
[2023-01-14] MEDS: allopurinoL 100 MG TAB PO SCH (21:42)
[2023-01-14] MEDS: GABAPENTIN 400 MG CAP PO SCH (21:42)
--- NOTE | 2023-01-14 21:47 | Magnetic Resonance Report ---
Exam(s): MRI HEAD Without Contrast EXAM: MR Head Without Intravenous Contrast CLINICAL HISTORY: Reason for exam: tia/cva eval. TECHNIQUE: Magnetic resonance images of the head/brain without intravenous contrast in multiple planes. COMPARISON: No relevant prior studies available. FINDINGS: Brain: Unremarkable. No mass. No hemorrhage. No acute infarct. Ventricles: Unremarkable. No ventriculomegaly. Bones/joints: Unremarkable. Sinuses: Unremarkable as visualized. No acute sinusitis. Mastoid air cells: Unremarkable as visualized. No mastoid effusion. Orbits: Unremarkable as visualized. IMPRESSION: Normal head/brain MRI. Electronically signed by: Mir Hannah MD 01/14/23 21:46 PM
[2023-01-14] MEDS ORDERED: INFLUENZA VACCINE HIGH-DOSE (HD-IIV4) PF 65+ 0.7mL SYR IM ONE (23:36)
[2023-01-15] MEDS ORDERED: DOXYCYCLINE HYCLATE 100 MG in DEXTROSE 5% MINI-B 100 ML IV SCH (03:30)
[2023-01-15 06:19] LABS: Basophils # (auto) 0.03 K/uL (0.00-0.20); Basophils % (auto) 0.3 %; Eosinophils % (auto) 3.2 %; Hematocrit (blood only) 39.1 % (42.0-52.0); Hemoglobin 13.6 g/dl (14.0-18.0); Immature Granulocytes # (auto) 0.04 K/uL (0.01-0.20); Immature Granulocytes % (auto) 0.4 %; Lymphocytes % (auto) 19.1 %; Mean Corpuscular Hemoglobin 32.9 pg (25.0-34.0); Mean Corpuscular Hgb Conc 34.8 g/dL (32.0-36.0); Mean Corpuscular Volume 94.4 fL (80.0-100.0); Mean Platelet Volume 10.8 fL (9.4-12.4); Monocytes # (auto) 1.11 K/uL (0.11-0.59); Monocytes % (auto) 11.8 %; Neutrophils # (auto) 6.15 K/uL (1.40-6.50); Neutrophils % (auto) 65.2 %; Platelet Count 133 K/uL (130-400); RDW Coefficient of Variation 13.3 % (11.5-14.5); RDW Standard Deviation 46.2 fL (36.4-46.3); Red Blood Count 4.14 M/uL (4.70-6.10); White Blood Count 9.43 K/ul (4.8-10.8)
[2023-01-15 06:22] LABS: BUN Creatinine Ratio 11.5 (10-20); Calcium 9.2 mg/dl (8.6-10.3); Chol HDL Ratio 3.6 (0-5); Est GFR (African American) 59.1 ml/min; Potassium 4.2 mmol/L (3.5-5.1)
[2023-01-15] MEDS ORDERED: ASPIRIN 81 MG ECTAB PO SCH (09:00)
[2023-01-15] MEDS ORDERED: MELOXICAM 7.5 MG TAB PO SCH (09:00)
[2023-01-15] MEDS: TAMSULOSIN HCL 0.4 MG CAP PO SCH (09:28)
[2023-01-15] MEDS: GABAPENTIN 400 MG CAP PO SCH (09:28)
[2023-01-15] MEDS: allopurinoL 100 MG TAB PO SCH (09:28)
[2023-01-15 09:42] LABS: Estimated Average Glucose 105 mg/dl; Hemoglobin A1C 5.3 % (4.5-5.6)
--- NOTE | 2023-01-15 09:51 | XCELERA ---
[id number]
[2023-01-15 12:18] VITALS: BP 151/80; PULSE 67; RESP 19; TEMP 97.5; O2SAT 95
--- NOTE | 2023-01-15 12:27 | Discharge Summary ---
Date of Service January 15, 2023 Admission HPI Per Admitting Provider Cooper is a 72-year-old male with a past medical history of asthma, lumbar radiculopathy, nasal turbinate hypertrophy, prostate cancer, gout, and hearing loss who presents from PCP office after developing left facial numbness left left neck pain, dizziness last night around 6 PM and he was found to be hypertensive to 180/100s. He was recommended for core ER stroke evaluation. Due to last known well being over 18 hours prior TNKase was not indicated, but patient was evaluated as a stroke alert in the ER. At ER assessment he has symmetrical strength and sensation neuro: BP 130s normally. 180s/110s yesterday and today. Last night around 6pm started to develop pain in his L neck, about a 2 inch strip which felt really irritated in the L neck. BP was elevated. Took an aspirin x1 around 9pm, 10pm pain was gone. Went to see Dr. Vick trevino and still was hypertensive and then seemed very weak and lighthead which is abnormal for him. Recommended he be seen in ER. Trish thinks he has a little R lip droop this AM, did not have any facial deficits or vision change last night. Pt senses some slight tingling of the L cheek/yazdanism this morning but no numbness. ++Lightheadedness, + headache. No pain that traveled down the arm No ches tpain. he did not notice any shortness or breath. Thinks he may have has some chest tightness which lasted about an hour 'not bad maybe a 4/10'. Not present currently Has been taking mobic for shoulder and back pain, chronic. Does not take any bloo dpressure medications, no prior history of HTN. Medical History: Reviewed Medications: Reviewed Surgical History: Reviewed Family history: Reviewed Allergies: Reviewed. NKMA. Social History: No tobacco product use. Drinks etoh on the weekends.No hx of withdawal. Code Status: Full Code Principal Diagnosis Strokelike symptoms, possible Lyme disease, elevated blood pressure Discharge Exam General-alert and oriented x3, no fevers, no chills HEENT-head atraumatic and normocephalic, pupils equal and reactive to light, extraocular muscles intact Neck-no lymphadenopathy or thyromegaly, trachea midline Chest-clear to auscultation percussion. No rales wheezing or rhonchi Cardiac-regular rate and rhythm, normal S1 and S2 Abdomen-normal bowel sounds, nontender, no hepatosplenomegaly Extremities-no cyanosis, clubbing, or edema Neuro-cranial nerves II through XII intact, motor and sensory function within normal limits, strength symmetrical 5/5, no focal deficits Psych-normal affect, normal mood Discharge Data Allergies Allergy/AdvReac Type Severity Reaction Status Date / Time oxycodone AdvReac Unknown Hallucinati Verified 10/27/22 11:48 ng Consultations 01/14/23 13:42 ED Decision to Admit Stat Ordered Studies 01/14/23 12:15 CT angio head w con Stat CT angio neck with con Stat CT head/brain wo con Stat 01/14/23 16:33 MR brain wo con Routine Hospital Course (1) Stroke-like symptoms: CVA ruled out with normal brain MRI scan. Nevertheless, he will take aspirin 81 mg daily going forward. Blood pressure is acceptable. Cardiac echo unremarkable for age (2) Hypertension: Improved. Continue current medical management (3) Chest pain: Resolved. No evidence of acute coronary syndrome. No acute EKG changes. (4) Lumbar radiculopathy: Stable. No intervention necessary at this time (5) Neuropathy: Stable. No intervention necessary at this time (6) Lyme disease: Lyme IgG and IgM are positive. Western blot is pending. We will continue doxycycline 100 mg twice daily for 28 days regardless. Plan Discharge to home todayJanuary 15 Total Time Total Time Spent Total Time Spent (In Minutes): 45 minutes Discharge Plan Discharge Items Patient Disposition: Home - Self-Care Reason For Visit: CVA EVAL, HTN Discharge Diagnosis: Strokelike symptoms, elevated blood pressure, chest pain without acute coronary syndrome, possible acute Lyme disease Activity: Resume your previous activity Non-emergency contact: Primary Care Provider Call non-emergency contact if: your symptoms worsen Follow-up/Referrals: Anisha Arreaga PA-C [Primary Care Provider] - Diet: Regular and Heart Healthy Addtl Attending Provider Instructions: Take aspirin 81 mg daily. Take doxycycline 100 mg twice a day for 28 days unless told otherwise by PCP Pending Studies at Discharge: Yes Studies:: Lyme Western blot Stand-Alone Forms: My [employer], Smoking Cessation Medications and DC Order Prescriptions: New doxycycline hyclate 100 mg capsule 100 mg PO BID 28 Days Qty: 56 0RF aspirin 81 mg Tablet,Delayed Release (Dr/Ec) 81 mg PO QAM Qty: 0 0RF Continued tamsulosin 0.4 mg capsule 0.4 mg PO BID Qty: 60 5RF Rx Instructions: Twice a day with food. azelastine 137 mcg (0.1 %) aerosol,spray 2 spray intranasal BID Qty: 30 3RF atorvastatin 20 mg Tablet 20 mg PO HS allopurinol 100 mg Tablet 100 mg PO BID fluoxetine 20 mg Tablet 10 mg PO QAM gabapentin 300 mg capsule 400 mg PO TID albuterol sulfate [Proventil HFA] 90 mcg/actuation HFA aerosol inhaler 2 inh inhalation Q6H PRN (Reason: shortness of breath or wheezing) Qty: 8.5 0RF meloxicam 15 mg tablet 15 mg PO QAM Discharge Orders: Discharge Order (Routine); Ordered 01/15/23 Ordered By: Michael Gonzalez Admission Data Admit Date/Time: 01/14/23 14:13 Attending Provider: Michael Gonzalez Admit Provider: Iban Henderson Primary Care Provider: Anisha Arreaga Other Providers: Iban Henderson Coding Level of Care Code 51358 INP/OBS DISCH >30 MIN Diagnoses Stroke-like symptoms R29.90 Hypertension I10 Chest pain R07.9 Chest pain type: unspecified Lumbar radiculopathy M54.16 Neuropathy G62.9 Lyme disease A69.20
[2023-01-15] MEDS ORDERED: STROKE PATIENT DISCHARGE STA (12:28)
[2023-01-19 09:07] LABS: 18KDIGG Band NON-REACTIVE; 23KDIGG Band REACTIVE; 23KDIGM Band REACTIVE; 28KDIGG Band NON-REACTIVE; 30KDIGG Band NON-REACTIVE; 39KDIGG Band NON-REACTIVE; 39KDIGM Band NON-REACTIVE; 41KDIGG Band REACTIVE; 41KDIGM Band NON-REACTIVE; 45KDIGG Band NON-REACTIVE; 58KDIGG Band NON-REACTIVE; 66KDIGG Band NON-REACTIVE; 93KDIGG Band NON-REACTIVE; Lyme Antibodies, WB IgG NEGATIVE (NEGATIVE); Lyme Antibodies, WB IgM NEGATIVE (NEGATIVE)
== END 2023-01-15 15:03 | disposition home or self-care (01) | DRG 92 ==
LOC: ED 12:19 → EDINP 14:13 → SUATTDRO 14:13 → 2E 16:17

== ENCOUNTER 2023-02-15 07:50 | Observation (INO) ==
[2023-02-15] MEDS ORDERED: MECLIZINE HCL 25 MG TAB PO STA (08:17)
[2023-02-15] MEDS ORDERED: SODIUM CHLORIDE 0.9% 1,000 ML IV ONE (08:17)
[2023-02-15] MEDS ORDERED: ONDANSETRON INJ 2 MG/ML 2 ML VIAL IV STA (08:17)
--- NOTE | 2023-02-15 08:34 | Emergency Department Note ---
History of Present Illness General Chief complaint: Vertigo Stated complaint: HX TIA,VERTIGO,VOMITING,CANT WALK, Time Seen by Provider: 02/15/23 08:08 History of Present Illness Maximum Pain Intensity: 6 72-year-old male presents emergency department with complaint of vertigo that started on Wednesday evening. Patient recently was evaluated for TIA symptoms a few weeks ago and was started on losartan for elevated blood pressure. Patient states that since Wednesday evening the room is spinning yesterday had double vision at times that was monocular; patient states slight right-sided headache patient denies any tinnitus or hearing loss. Patient states today when he tries to stand up he is unable and is off balance and states he will fall. Patient denies chest pain shortness of breath abdominal pain vomiting or diarrhea. Patient does state he is slightly nauseous. Patient currently denies slurred speech or weakness in the upper or lower extremities. Symptom onset is greater than 48 hours Home Medications Medication Instructions Recorded Confirmed Type allopurinol 100 mg tablet 100 mg PO BID 06/13/19 02/15/23 History atorvastatin 20 mg tablet 20 mg PO HS 06/13/19 02/15/23 History fluoxetine 20 mg tablet 10 mg PO QAM 06/13/19 02/15/23 History gabapentin 300 mg capsule 400 mg PO TID 07/30/21 02/15/23 History tamsulosin 0.4 mg capsule 0.4 mg PO BID #60 caps 09/22/21 02/15/23 Rx azelastine 137 mcg (0.1 %) nasal 2 spray intranasal BID #30 mL 10/23/21 02/15/23 Rx spray aerosol albuterol sulfate 90 mcg/actuation 2 inh inhalation Q6H PRN shortness 06/18/22 02/15/23 Rx aerosol inhaler (Proventil HFA) of breath or wheezing #8.5 grams meloxicam 15 mg tablet 15 mg PO QAM 01/14/23 02/15/23 History aspirin 81 mg tablet,delayed 81 mg PO QAM #0 tabs 01/15/23 02/15/23 Rx release losartan 25 mg tablet 25 mg PO DAILY 02/15/23 02/15/23 History Allergies Allergy/AdvReac Type Severity Reaction Status Date / Time oxycodone AdvReac Unknown Hallucinati Verified 10/27/22 11:48 ng Past Med/Surg History Medical History Hypertension Lumbar radiculopathy Stroke pt unaware Nasal polyps hx of History of anesthesia reaction WITH APPENDECTOMY SURGERY WAS TOLD WOKE UP VIOLENT, DOES NOT REMEMBER History of prostate cancer RADIATION MAR 2020-APR 2020 Spinal stenosis Neuropathy BOTH FEET History of gout Sleep apnea CPAP Hypercholesterolemia Surgical History History of endoscopic sinus surgery History of appendectomy History of colonoscopy History of carpal tunnel release of both wrists H/O knee surgery X1, ARTHROSCOPY H/O elbow surgery X2 History of back surgery X2 Family History Brother No problems noted. 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 Beliefs That Will Affect Care: None marital status: Current Living Situation: Spouse current occupational status: retired current occupation: retired as [employer] How many Children do You have: 1 Feels Safe at Home: Yes Childhood Exposure to Second-Hand Smoke: Yes caffeine: Yes (coffee once per day) during the past year weight has: remained stable Dental Care, Regularly: Yes Physical Activity Frequency: 1-2 Times per Week Seatbelt Use: always Sunscreen Use: No Assistive Devices: CPAP, Glasses and Hearing Aid - Bilateral Review of Systems Eyes: + diplopia Neurologic: + dizziness Physical Exam Vital Signs Vital Signs - 24 hr 02/15/23 08:03 02/15/23 08:50 02/15/23 09:00 Temperature 36.7 C Temperature Source Skin Pulse Rate 67 64 Pulse Rate [Right Finger] 65 Respiratory Rate 20 18 Respiratory Effort / Characteristics Non-Labored Spontaneous Non-Labored Spontaneous Respiratory Depth Normal Normal Respiratory Pattern Regular Blood Pressure 176/84 H Blood Pressure [Left Arm] 138/79 Blood Pressure Mean 114 Blood Pressure Mean [Left Arm] 98 Pulse Oximetry 97 96 Oxygen Delivery Method Room Air Room Air Sepsis Recent Fever Within 48 Hours No Sepsis New/Unexplained Change in Mental Status N/A Sepsis Action Taken by Nursing No Action Required 02/15/23 09:00 02/15/23 11:00 Temperature Temperature Source Pulse Rate 60 Pulse Rate [Right Finger] 61 Respiratory Rate 18 18 Respiratory Effort / Characteristics Non-Labored Spontaneous Respiratory Depth Normal Respiratory Pattern Blood Pressure Blood Pressure [Left Arm] 162/83 H Blood Pressure Mean Blood Pressure Mean [Left Arm] 109 Pulse Oximetry 97 97 Oxygen Delivery Method Room Air Room Air Sepsis Recent Fever Within 48 Hours Sepsis New/Unexplained Change in Mental Status Sepsis Action Taken by Nursing GENERAL: Patient is awake alert in no acute distress patient is resting comfortably and showing no signs of anxiety EYES: The conjunctivae are clear. The pupils are round and reactive. No nystagmus EARS, NOSE, MOUTH AND THROAT: The nose is without any evidence of any deformity. Mucous membranes are moist. Tongue is midline. TMs are clear bilaterally NECK: The neck is nontender and supple. No meningismus RESPIRATORY: Normal respiratory effort is noted there is no evidence of wheezing rhonchi or rales CARDIOVASCULAR: Regular rate and rhythm noted there no murmurs rubs or gallops normal S1 normal S2. GASTROINTESTINAL: The abdomen is soft. Abdomen is nontender. BACK: No midline tenderness or or step-off noted range of motion in flexion extension as well as rotation no signs of muscle spasm noted MUSCULOSKELETAL/EXTREMITIES: There is no evidence of gross deformity full range of motion is noted in the hips and shoulders. SKIN: There is no obvious evidence of any rash. There are no petechiae, pallor or cyanosis noted. NEUROLOGIC: Patient is awake alert and oriented x3 strength is symmetric; patient has no nystagmus, patient has equal upper and lower extremity strength, no dysarthria, NIH is 0 when laying in the bed Course Reevaluation(s) Reevaluation #1: pt was having difficulty ambulating to bathroom with steady gait Time: 11:30 Consultations Consultation #1: Case d/w Dr Centeno for admit Time: 11:30 Administered Medications Discontinued Medications Sodium Chloride (Nss) 1,000 mls @ 999 mls/hr IV .Q1H1M ONE Stop: 02/15/23 09:17 Last Infusion: 02/15/23 09:57 Dose: Infused Documented By: Admin: 02/15/23 08:52 Dose: 999 mls/hr Documented By: KOLBY Ioversol (Optiray 320 500ml) 114 ml IV ONCE ONE Stop: 02/15/23 10:37 Last Admin: 02/15/23 10:36 Dose: 114 ml Documented By: EDWINA Meclizine HCl (Meclizine Hcl 25 Mg Tab) 25 mg PO NOW STA Stop: 02/15/23 08:18 Last Admin: 02/15/23 08:52 Dose: 25 mg Documented By: KOLBY Ondansetron HCl (Ondansetron Inj 2 Mg/Ml 2 Ml Vial) 4 mg IV NOW STA Stop: 02/15/23 08:18 Last Admin: 02/15/23 08:52 Dose: 4 mg Documented By: KOLBY Medical Decision Making Medical Records Attestation: I reviewed the patient's medical records. Home Medications Current Medication List: was personally reviewed by me Laboratory Data Attestation: I reviewed the patient's lab results. Interpreted by me are unremarkable 02/15/23 08:56 02/15/23 08:56 Lab Results 02/15/23 02/15/23 Range/Units 08:56 10:00 WBC 8.86 (4.8-10.8) K/ul RBC 4.36 L (4.70-6.10) M/uL Hgb 14.3 (14.0-18.0) g/dl Hct 41.3 L (42.0-52.0) % MCV 94.7 (80.0-100.0) fL MCH 32.8 (25.0-34.0) pg MCHC 34.6 (32.0-36.0) g/dL RDW Std Deviation 46.3 (36.4-46.3) fL RDW Coeff of Sonia 13.2 (11.5-14.5) % Plt Count 131 (130-400) K/uL MPV 11.0 (9.4-12.4) fL Immature Gran % (Auto) 0.2 % Neut % (Auto) 71.1 % Lymph % (Auto) 17.6 % Lewis % (Auto) 9.3 % Eos % (Auto) 1.6 % Baso % (Auto) 0.2 % Neut # (Auto) 6.30 (1.40-6.50) K/uL Lymph # (Auto) 1.56 (1.20-3.40) K/uL Lewis # (Auto) 0.82 H (0.11-0.59) K/uL Eos # (Auto) 0.14 (0.00-0.50) K/uL Baso # (Auto) 0.02 (0.00-0.20) K/uL Immature Gran # (Auto) 0.02 (0.01-0.20) K/uL PT 11.7 (9.0-12.0) Seconds INR 1.1 (0.9-1.1) APTT 26.7 (21.0-31.0) Seconds PTT Ratio 0.9 Sodium 140 (136-145) mmol/L Potassium 3.5 (3.5-5.1) mmol/L Chloride 106 (98-107) mmol/L Carbon Dioxide 27 (21-32) mmol/L Anion Gap 7 (3-11) BUN 16 (6-23) mg/dl Creatinine 1.07 (0.6-1.4) mg/dl Est Cr Clr Drug Dosing 83.4 ml/min Est GFR ( Amer) 81.1 ml/min Est GFR (Non-Af Amer) 70.0 ml/min BUN/Creatinine Ratio 15.0 (10-20) Glucose 129 H (70-99(Fasting)) mg/dl Calcium 9.4 (8.6-10.3) mg/dl Total Bilirubin 0.9 (0.2-1.0) mg/dl AST 20 (13-39) U/L ALT 24 (7-52) U/L Alkaline Phosphatase 89 (34-104) U/L Troponin I High Sens 8.3 (0-20) pg/ml Total Protein 7.1 (6.0-8.3) gm/dl Albumin 4.4 (3.4-5.0) gm/dl Globulin 2.7 (2.5-4.0) gm/dl Albumin/Globulin Ratio 1.6 (0.9-2) Urine Color Yellow Urine Appearance Clear (Clear) Urine pH 6.5 (4.5-7.5) Ur Specific Niles 1.006 (1.000-1.030) Urine Protein Negative (Negative) Urine Glucose (UA) Negative (Negative) Urine Ketones Negative (Negative) Urine Blood Negative (Negative) Urine Nitrite Negative (Negative) Urine Bilirubin Negative (Negative) Urine Urobilinogen Negative (Negative) Ur Leukocyte Esterase Negative (Negative) SARS-CoV-2, RNA, NAAT NEGATIVE (NEGATIVE) Imaging Data Attestation: I personally reviewed and interpreted this imaging study as follows: My Impression: CT brain per my interpretation negative for intracranial hemorrhage Radiologist's Impression: Head CTA 02/15/23 08:08 CT angio head w con, CT head/brain wo con, CT angio neck with con CLINICAL HISTORY: 72 years-old Male with dizziness. Acute dizziness COMPARISON STUDY: Brain MRI and CT examinations 01/14/2013 TECHNIQUE: Unenhanced axial CT scan of the brain is performed. Subsequently, following the IV administration of 114 cc of Optiray, CT angiogram of the head and neck was performed from the aortic arch to the skull apex. Images are reviewed in the axial, sagittal, and coronal planes. 3-D MIPS images are created and assessed. IV contrast was administered without complication. All measurements were obtained according to NASCET criteria. A dose lowering technique was utilized adhering to the principles of ALARA. CT DOSE: 1343.87 mGy.cm FINDINGS: CT BRAIN: There is no acute intracranial hemorrhage, midline shift, hydrocephalus, intracranial mass, territorial ischemia or abnormal extra-axial collections. No abnormal intra-axial or extra-axial enhancement. Involutional changes with chronic microvascular ischemic disease. Postoperative changes of the paranasal sinuses. Mild polypoid mucosal thickening of the maxillary sinuses. Mastoid air cells are clear. No calvarial fracture. Paranasal sinuses are clear. CT ANGIOGRAM OF THE HEAD AND NECK: Three-vessel morphology of the thoracic aortic arch. Patency of the innominate image subclavian arteries. The common and internal carotid arteries are patent. Atherosclerosis of the carotid bulbs without significant stenosis. The bilateral anterior and middle cerebral arteries are also patent. The vertebrobasilar system and posterior cerebral arteries are widely patent. There is no aneurysm, high-grade stenosis, or proximal branch occlusion identified. Dural sinuses appear patent. No pneumothorax. Lung apices are clear. Unremarkable soft tissues. Uterine changes of the cervical spine. IMPRESSION: 1. No acute intracranial abnormality. 2. Unremarkable CTA of the head and neck, unchanged from the 01/14/2023 exam. ACT 112: Negative or not required by law. The above report was generated using voice recognition software. It may contain grammatical, syntax or spelling errors. Electronically signed by: Tim Orantes M.D. 02/15/2023 10:53 AM Neck CTA 02/15/23 08:08 CT angio head w con, CT head/brain wo con, CT angio neck with con CLINICAL HISTORY: 72 years-old Male with dizziness. Acute dizziness COMPARISON STUDY: Brain MRI and CT examinations 01/14/2013 TECHNIQUE: Unenhanced axial CT scan of the brain is performed. Subsequently, following the IV administration of 114 cc of Optiray, CT angiogram of the head and neck was performed from the aortic arch to the skull apex. Images are reviewed in the axial, sagittal, and coronal planes. 3-D MIPS images are created and assessed. IV contrast was administered without complication. All measurements were obtained according to NASCET criteria. A dose lowering technique was utilized adhering to the principles of ALARA. CT DOSE: 1343.87 mGy.cm FINDINGS: CT BRAIN: There is no acute intracranial hemorrhage, midline shift, hydrocephalus, intracranial mass, territorial ischemia or abnormal extra-axial collections. No abnormal intra-axial or extra-axial enhancement. Involutional changes with chronic microvascular ischemic disease. Postoperative changes of the paranasal sinuses. Mild polypoid mucosal thickening of the maxillary sinuses. Mastoid air cells are clear. No calvarial fracture. Paranasal sinuses are clear. CT ANGIOGRAM OF THE HEAD AND NECK: Three-vessel morphology of the thoracic aortic arch. Patency of the innominate image subclavian arteries. The common and internal carotid arteries are patent. Atherosclerosis of the carotid bulbs without significant stenosis. The bilateral anterior and middle cerebral arteries are also patent. The vertebrobasilar system and posterior cerebral arteries are widely patent. There is no aneurysm, high-grade stenosis, or proximal branch occlusion identified. Dural sinuses appear patent. No pneumothorax. Lung apices are clear. Unremarkable soft tissues. Uterine changes of the cervical spine. IMPRESSION: 1. No acute intracranial abnormality. 2. Unremarkable CTA of the head and neck, unchanged from the 01/14/2023 exam. ACT 112: Negative or not required by law. The above report was generated using voice recognition software. It may contain grammatical, syntax or spelling errors. Electronically signed by: Tim Orantes M.D. 02/15/2023 10:[address] 02/15/23 08:10 CT angio head w con, CT head/brain wo con, CT angio neck with con CLINICAL HISTORY: 72 years-old Male with dizziness. Acute dizziness COMPARISON STUDY: Brain MRI and CT examinations 01/14/2013 TECHNIQUE: Unenhanced axial CT scan of the brain is performed. Subsequently, following the IV administration of 114 cc of Optiray, CT angiogram of the head and neck was performed from the aortic arch to the skull apex. Images are reviewed in the axial, sagittal, and coronal planes. 3-D MIPS images are created and assessed. IV contrast was administered without complication. All measurements were obtained according to NASCET criteria. A dose lowering technique was utilized adhering to the principles of ALARA. CT DOSE: 1343.87 mGy.cm FINDINGS: CT BRAIN: There is no acute intracranial hemorrhage, midline shift, hydrocephalus, intracranial mass, territorial ischemia or abnormal extra-axial collections. No abnormal intra-axial or extra-axial enhancement. Involutional changes with chronic microvascular ischemic disease. Postoperative changes of the paranasal sinuses. Mild polypoid mucosal thickening of the maxillary sinuses. Mastoid air cells are clear. No calvarial fracture. Paranasal sinuses are clear. CT ANGIOGRAM OF THE HEAD AND NECK: Three-vessel morphology of the thoracic aortic arch. Patency of the innominate image subclavian arteries. The common and internal carotid arteries are patent. Atherosclerosis of the carotid bulbs without significant stenosis. The bilateral anterior and middle cerebral arteries are also patent. The vertebrobasilar system and posterior cerebral arteries are widely patent. There is no aneurysm, high-grade stenosis, or proximal branch occlusion identified. Dural sinuses appear patent. No pneumothorax. Lung apices are clear. Unremarkable soft tissues. Uterine changes of the cervical spine. IMPRESSION: 1. No acute intracranial abnormality. 2. Unremarkable CTA of the head and neck, unchanged from the 01/14/2023 exam. ACT 112: Negative or not required by law. The above report was generated using voice recognition software. It may contain grammatical, syntax or spelling errors. Electronically signed by: Tim Orantes M.D. 02/15/2023 10:53 AM ECG Data Attestation: I personally reviewed and interpreted this ECG as follows: Additional Comments: EKG interpreted by me sinus bradycardia rate of 59, normal intervals normal axis, no obvious ST segment elevation or depression Telemetry was ordered by me interpreted as sinus rhythm at 61 MDM Narrative Medical decision making differential diagnosis includes vertigo, TIA, CVA, intracranial hemorrhage, dysrhythmia, metabolic derangement, dehydration, hypertension Plan is to check labs EKG, CT angios Patient's symptoms are greater than 48 hours Patient is not a tPA candidate at this time and he has an NIH of 0 at 8:34 AM Patient's is at bedside and she provided me medical history in which the patient was admitted last month for TIA and he was started on losartan I have reviewed the patient's discharge summary of January 15, 2023 which the patient had TIA symptoms and hypertension and is being treated currently for Lyme with doxycycline. Patient is unsteady when he ambulates. [facility] Impression & Plan Vertigo Discharge Plan Visit Data Chief Complaint: Vertigo Stated Complaint: HX TIA,VERTIGO,VOMITING,CANT WALK, ED Provider: Josiah Morgan Discharge Problem: Vertigo Patient Disposition: Admitted As Inpatient Forms Stand Alone Forms: My [facility] Prescriptions Prescriptions: No Action tamsulosin 0.4 mg capsule 0.4 mg PO BID Qty: 60 5RF Rx Instructions: Twice a day with food. azelastine 137 mcg (0.1 %) aerosol,spray 2 spray intranasal BID Qty: 30 3RF atorvastatin 20 mg Tablet 20 mg PO HS allopurinol 100 mg Tablet 100 mg PO BID fluoxetine 20 mg Tablet 10 mg PO QAM gabapentin 300 mg capsule 400 mg PO TID albuterol sulfate [Proventil HFA] 90 mcg/actuation HFA aerosol inhaler 2 inh inhalation Q6H PRN (Reason: shortness of breath or wheezing) Qty: 8.5 0RF meloxicam 15 mg tablet 15 mg PO QAM aspirin 81 mg Tablet,Delayed Release (Dr/Ec) 81 mg PO QAM Qty: 0 0RF losartan 25 mg tablet 25 mg PO DAILY Referrals Referrals: Anisha Arreaga PA-C [Primary Care Provider] -
[2023-02-15 09:13] LABS: Basophils # (auto) 0.02 K/uL (0.00-0.20); Basophils % (auto) 0.2 %; Eosinophils # (auto) 0.14 K/uL (0.00-0.50); Eosinophils % (auto) 1.6 %; Hematocrit (blood only) 41.3 % (42.0-52.0); Hemoglobin 14.3 g/dl (14.0-18.0); Immature Granulocytes # (auto) 0.02 K/uL (0.01-0.20); Immature Granulocytes % (auto) 0.2 %; Lymphocytes # (auto) 1.56 K/uL (1.20-3.40); Lymphocytes % (auto) 17.6 %; Mean Corpuscular Hemoglobin 32.8 pg (25.0-34.0); Mean Corpuscular Hgb Conc 34.6 g/dL (32.0-36.0); Mean Corpuscular Volume 94.7 fL (80.0-100.0); Monocytes # (auto) 0.82 K/uL (0.11-0.59); Monocytes % (auto) 9.3 %; Neutrophils % (auto) 71.1 %; Platelet Count 131 K/uL (130-400); RDW Coefficient of Variation 13.2 % (11.5-14.5); RDW Standard Deviation 46.3 fL (36.4-46.3); Red Blood Count 4.36 M/uL (4.70-6.10); White Blood Count 8.86 K/ul (4.8-10.8)
[2023-02-15 09:27] LABS: Albumin Globulin Ratio 1.6 (0.9-2); Albumin Level 4.4 gm/dl (3.4-5.0); Bilirubin,Total 0.9 mg/dl (0.2-1.0); Calcium 9.4 mg/dl (8.6-10.3); Creatinine Clr Calc Pharmacy 83.4 ml/min; Est GFR (African American) 81.1 ml/min; Globulin 2.7 gm/dl (2.5-4.0); Potassium 3.5 mmol/L (3.5-5.1); Total Protein 7.1 gm/dl (6.0-8.3)
[2023-02-15 09:51] LABS: INR 1.1 (0.9-1.1); Partial Thromboplastin Ratio 0.9; Partial Thromboplastin Time 26.7 Seconds (21.0-31.0); Prothrombin Time 11.7 Seconds (9.0-12.0)
[2023-02-15 10:00] LABS: Troponin I High Sensitivity 8.3 pg/ml (0-20)
[2023-02-15] MEDS ORDERED: OPTIRAY 320 500ml IV ONE (10:36)
[2023-02-15 10:45] LABS: Appearance Urine Clear (Clear); Bilirubin Urine Negative (Negative); Blood Urine Negative (Negative); Color Urine Yellow; Glucose Urine UA Negative (Negative); Ketones Urine Negative (Negative); Leukocyte Esterase Urine Negative (Negative); Nitrite Urine Negative (Negative); Protein Urine Negative (Negative); Specific Gravity Urine 1.006 (1.000-1.030); Urobilinogen Urine Negative (Negative); pH Urine 6.5 (4.5-7.5)
--- NOTE | 2023-02-15 10:54 | CT Scan Report ---
CT angio head w con, CT head/brain wo con, CT angio neck with con CLINICAL HISTORY: 72 years-old Male with dizziness. Acute dizziness COMPARISON STUDY: Brain MRI and CT examinations 01/14/2013 TECHNIQUE: Unenhanced axial CT scan of the brain is performed. Subsequently, following the IV adminis tration of 114 cc of Optiray, CT angiogram of the head and neck was performed from the aortic arch to the skull apex. Images are reviewed in the axial, sagittal, and coronal planes. 3-D MIPS images are created and assessed. IV contrast was administered without complication. All measurements were obtain ed according to NASCET criteria. A dose lowering technique was utilized adhering to the principles of ALARA. CT DOSE: 1343.87 mGy.cm FINDINGS: CT BRAIN: There is no acute intracranial hemorrhage, midline shift, hydrocephalus, intracranial mass, territori al ischemia or abnormal extra-axial collections. No abnormal intra-axial or extra-axial enhancement. Involutional changes with chronic microvascular ischemic disease. Postoperative changes of the parana montserrat sinuses. Mild polypoid mucosal thickening of the maxillary sinuses. Mastoid air cells are clear. No calvarial fracture. Paranasal sinuses are clear. CT ANGIOGRAM OF THE HEAD AND NECK: Three-vessel morphology of the thoracic aortic arch. Patency of the innominate image subclavian arter ies. The common and internal carotid arteries are patent. Atherosclerosis of the carotid bulbs withou t significant stenosis. The bilateral anterior and middle cerebral arteries are also patent. The vert ebrobasilar system and posterior cerebral arteries are widely patent. There is no aneurysm, high-grad e stenosis, or proximal branch occlusion identified. Dural sinuses appear patent. No pneumothorax. Lung apices are clear. Unremarkable soft tissues. Uterine changes of the cervical sp ine. IMPRESSION: 1. No acute intracranial abnormality. 2. Unremarkable CTA of the head and neck, unchanged from the 01/14/2023 exam. ACT 112: Negative or not required by law. The above report was generated using voice recognition software. It may contain grammatical, syntax o r spelling errors. Electronically signed by: Tim Orantes M.D. 02/15/2023 10:53 AM
[2023-02-15] MEDS ORDERED: PHARMACIST DISCHARGE MED REC CONSULT PRN (11:42)
--- NOTE | 2023-02-15 11:43 | History & Physical Report ---
Date of Service February 15, 2023 Assessment & Plan (1) Stroke-like symptoms: Plan: -Admit to med/tele -Currently stable with symptoms controlled while at rest but significantly exacerbated with movement of head/eyes -At this time the etiology of the patient's symptoms appear most likely to be associated with recurrence of his BPPV, however, his unilateral diplopia he experienced yesterday dose not fit the typical picture -Patient was admitted from 01/14-01/15 for similar symptoms including dizziness and left facial numbness, stroke workup was negative, patient was started on 81 mg aspirin daily which he has been taking as prescribed -Western blot testing was negative from last admission, PCP stopped his Doxycycline -Will obtain MRI of the brain wo con to monitor further for possible stroke -Will consult PT/OT for assistance with Aishwarya maneuvers -Continue prn meclizine and Zofran -If further antiplatelet therapy would be required, would recommend against dual therapy as he has been on daily meloxicam for back pain which has provided significant improvement in his quality of life. -Will speak with Neurology after the results of his MRI are back; will continue with daily aspirin and statin for now -Will hold off on repeat echo at this time as he had a normal echo last month on admission -Hold chemical DVT PPX until MRI results are back, BL TAYLOR's for now -HH diet -AM CBC, BMP, mag, A1c, and lipid panel (2) Hypertension: Plan: -Stable -Will hold losartan until MRI results are back in case permissive HTN is required -Consider increasing dose on DC as his BP has not been at goal at home (3) Positive Lyme disease serology: Plan: -Was started on 28 day course of Doxycyline on last admission -Western Blot came back negative, PCP stopped doxcycline -Continue to hold at this time (4) Gout: Plan: -Continue allopurinol Plan The patient was discussed with Dr. Henderson at the time of the admission History of Present Illness Chief Complaint: Vertigo, imbalance, vision changes Primary Care Provider: Anisha Gamboa is a 72-year-old male with a past medical history of asthma, lumbar radiculopathy, nasal turbinate hypertrophy, prostate cancer, gout, hearing loss who presented to the [facility] ED on 02/15 for recurrence of dizziness/ambulatory dysfunction and new onset right eye vision changes. He was initially noted to be hypertensive at 176/84 but was otherwise stable. Labs including CBC, CMP, and high sen trop were unremarkable. CT of the head/brain wo con and CTA of the head/neck were read as "1. No acute intracranial abnormality. 2. Unremarkable CTA of the head and neck, unchanged from the 01/14/2023 exam.". ECG showed sinus bradycardia at [address] segment or T-wave changes. Prior to admission the patient was given 25 mg PO Meclizine, 4 mg IV zofran, and 1L NSS without improvement of symptoms. The patient was recently admitted from 01/14-01/15 for acute onset of left sided facial numbness, left neck pain, and dizziness. His stroke workup including MRI of the brain wo con, CT head wo con, and CT of the head/neck w/con were unremarkable. He was found to have positive Lyme IgG and IgM testing and was started on a 28 day course of PO Doxycycline. He was also started on 81 mg daily aspirin during admission and on discharge. At the time of the exam the patient was lying in bed in no acute distress with his sitting bedside, history was obtained from both. He states that he was in his normal state of health until the evening of 02/13 when he developed acute onset of dizziness and nausea after yawning. Symptoms have persisted throughout the weekend despite using 3 doses of meclizine per his . Last night the patient was lying in bed, in the dark, when he developed right eye diplopia while looking at his bedside clock. He tested his vision in both eyes individually and confirmed he was experiencing the double vision in the right eye. He states that this resolved by the time he woke this am, but he was still experiencing significant dizziness which is constant, even at rest, but significantly exacerbated with movement of his head/eyes. He and his state that the patient was admitted to [facility] approximately 6 years ago for vertigo. His symptoms resolved after undergoing Aishwarya maneuver with PT. He confirms that his symptoms, expect for his right eye vision changes, are similar to previous admission for vertigo. The patient states that he has been taking his aspirin and statin daily since last admission. He was started on low dose Losartan last month for HTN, his states that the patient's systolic BP has been consistently running in the 160's despite starting the Losartan. He is a full code. Please refer to Dr. Henderson's attestation for any changes to the treatment plan Allergies Allergy/AdvReac Type Severity Reaction Status Date / Time oxycodone AdvReac Unknown Hallucinati Verified 10/27/22 11:48 ng Home Medications Medication Instructions Recorded Confirmed Type allopurinol 100 mg tablet 100 mg PO BID 06/13/19 02/15/23 History atorvastatin 20 mg tablet 20 mg PO HS 06/13/19 02/15/23 History fluoxetine 20 mg tablet 10 mg PO QAM 06/13/19 02/15/23 History gabapentin 300 mg capsule 400 mg PO TID 07/30/21 02/15/23 History tamsulosin 0.4 mg capsule 0.4 mg PO BID #60 caps 09/22/21 02/15/23 Rx azelastine 137 mcg (0.1 %) nasal 2 spray intranasal BID #30 mL 10/23/21 02/15/23 Rx spray aerosol albuterol sulfate 90 mcg/actuation 2 inh inhalation Q6H PRN shortness 06/18/22 02/15/23 Rx aerosol inhaler (Proventil HFA) of breath or wheezing #8.5 grams meloxicam 15 mg tablet 15 mg PO QAM 01/14/23 02/15/23 History aspirin 81 mg tablet,delayed 81 mg PO QAM #0 tabs 01/15/23 02/15/23 Rx release losartan 25 mg tablet 25 mg PO DAILY 02/15/23 02/15/23 History Past Med/Surg History Medical History Hypertension Lumbar radiculopathy Stroke pt unaware Nasal polyps hx of History of anesthesia reaction WITH APPENDECTOMY SURGERY WAS TOLD WOKE UP VIOLENT, DOES NOT REMEMBER History of prostate cancer RADIATION MAR 2020-APR 2020 Spinal stenosis Neuropathy BOTH FEET History of gout Sleep apnea CPAP Hypercholesterolemia Surgical History History of endoscopic sinus surgery History of appendectomy History of colonoscopy History of carpal tunnel release of both wrists H/O knee surgery X1, ARTHROSCOPY H/O elbow surgery X2 History of back surgery X2 Family History Brother No problems noted. Other No family history of adverse response to anesthesia No family history of bleeding disorder Social History Smoking Status: Former smoker Tobacco Type: Cigarettes Age Started Using Tobacco: 22; Age Quit Using Tobacco: 42; packs per day: 1.5; Cigarettes Per Day: 30; Second Hand Exposure: No; Do You Dip or Chew Tobacco: No; Hx Alcohol Use: Yes Alcohol type: beer and hard liquor Alcohol Intake Frequency: 2-3 x/Week Hx Substance Use: No Preferred Language: Tuvaluan Communication Ability: Effective Visual Impairment: Partially Limited Hearing Ability: Hard of Hearing Back Tender Required: No Beliefs That Will Affect Care: None marital status: Current Living Situation: Spouse current occupational status: retired current occupation: retired as [employer] How many Children do You have: 1 Feels Safe at Home: Yes Childhood Exposure to Second-Hand Smoke: Yes caffeine: Yes (coffee once per day) during the past year weight has: remained stable Dental Care, Regularly: Yes Physical Activity Frequency: 1-2 Times per Week Seatbelt Use: always Sunscreen Use: No Assistive Devices: CPAP, Glasses and Hearing Aid - Bilateral Physical Exam Physical Exam: Physical Exam: General: In no acute distress, stated age, well-nourished, good hygiene HEENT: Normocephalic, atraumatic, no scleral icterus, pupils around round, symmetrical, and reactive to light, moist mucus membranes, trachea midline, no thyromegaly Chest/Pulm: No respiratory distress, symmetrical chest expansion, clear breath sounds throughout Cardiac: RRR, no murmurs noted Abdomen: Negative for ascites and bruising, normoactive bowel sounds, soft, non-tender to palpation throughout Musculoskeletal: Symmetrical and without signs of acute trauma, upper and lower extremities with full ROM, no atrophy, spasticity, or flaccidity Extremities: Radial, dorsalis pedis, and posterior tibial pulses are intact and symmetrical, no edema noted in the BL LE's Skin: Warm, dry, no rashes , lesions, or scars noted Neuro: Alert and oriented to person, place, month, year, and president, no focal defects, CN II-XII tested and intact, patient with exacerbation of symtpoms durin EOM testing, denies current vision changes, negative BL cerebellar and pronator drift, no tremors noted Psych: No acute distress, calm and cooperative during the exam Results & Data Results & Data Vital Signs (Past 12 Hours) Vital Signs Temp Pulse Pulse Resp BP BP Pulse Ox 02/15/23 11:00 61 18 162/83 H 97 02/15/23 09:00 60 18 97 02/15/23 09:00 65 18 138/79 96 02/15/23 08:50 64 02/15/23 08:03 36.7 C 67 20 176/84 H 97 O2 Del Method 02/15/23 11:00 Room Air 02/15/23 09:00 Room Air 02/15/23 09:00 Room Air 02/15/23 08:50 02/15/23 08:03 Room Air Laboratory Results Abnormal lab results 02/15/23 Range/Units 08:56 RBC 4.36 L (4.70-6.10) M/uL Hct 41.3 L (42.0-52.0) % [place] # (Auto) 0.82 H (0.11-0.59) K/uL Glucose 129 H (70-99(Fasting)) mg/dl Diagnostic Findings Head CTA 02/15/23 08:08 CT angio head w con, CT head/brain wo con, CT angio neck with con CLINICAL HISTORY: 72 years-old Male with dizziness. Acute dizziness COMPARISON STUDY: Brain MRI and CT examinations 01/14/2013 TECHNIQUE: Unenhanced axial CT scan of the brain is performed. Subsequently, following the IV administration of 114 cc of Optiray, CT angiogram of the head and neck was performed from the aortic arch to the skull apex. Images are reviewed in the axial, sagittal, and coronal planes. 3-D MIPS images are created and assessed. IV contrast was administered without complication. All ysabel surements were obtained according to NASCET criteria. A dose lowering technique was utilized adhering to the principles of ALARA. CT DOSE: 1343.87 mGy.cm FINDINGS: CT BRAIN: There is no acute intracranial hemorrhage, midline shift, hydrocephalus, intracranial mass, territorial ischemia or abnormal extra-axial collections. No abnormal intra-axial or extra-axial enhancement. Involutional changes with chronic microvascular ischemic disease. Postoperative changes of the paranasal sinuses. Mild polypoid mucosal thickening of the maxillary sinuses. Mastoid air cells are clear. No calvarial fracture. Paranasal sinuses are clear. CT ANGIOGRAM OF THE HEAD AND NECK: Three-vessel morphology of the thoracic aortic arch. Patency of the innominate image subclavian arteries. The common and internal carotid arteries are patent. Atherosclerosis of the carotid bulbs without significant stenosis. The bilateral anterior and middle cerebral arteries are also patent. The vertebrobasilar system and posterior cerebral arteries are widely patent. There is no aneurysm, high-grade stenosis, or proximal branch occlusion identified. Dural sinuses appear patent. No pneumothorax. Lung apices are clear. Unremarkable soft tissues. Uterine changes of the cervical spine. IMPRESSION: 1. No acute intracranial abnormality. 2. Unremarkable CTA of the head and neck, unchanged from the 01/14/2023 exam. ACT 112: Negative or not required by law. The above report was generated using voice recognition software. It may contain grammatical, syntax or spelling errors. Electronically signed by: Tim Orantes M.D. 02/15/2023 10:53 AM Neck CTA 02/15/23 08:08 CT angio head w con, CT head/brain wo con, CT angio neck with con CLINICAL HISTORY: 72 years-old Male with dizziness. Acute dizziness COMPARISON STUDY: Brain MRI and CT examinations 01/14/2013 TECHNIQUE: Unenhanced axial CT scan of the brain is performed. Subsequently, following the IV administration of 114 cc of Optiray, CT angiogram of the head and neck was performed from the aortic arch to the skull apex. Images are reviewed in the axial, sagittal, and coronal planes. 3-D MIPS images are created and assessed. IV contrast was administered without complication. All measurements were obtained according to NASCET criteria. A dose lowering technique was utilized adhering to the principles of ALARA. CT DOSE: 1343.87 mGy.cm FINDINGS: CT BRAIN: There is no acute intracranial hemorrhage, midline shift, hydrocephalus, intracranial mass, territorial ischemia or abnormal extra-axial collections. No abnormal intra-axial or extra-axial enhancement. Involutional changes with chronic microvascular ischemic disease. Postoperative changes of the paranasal sinuses. Mild polypoid mucosal thickening of the maxillary sinuses. Mastoid air cells are clear. No calvarial fracture. Paranasal sinuses are clear. CT ANGIOGRAM OF THE HEAD AND NECK: Three-vessel morphology of the thoracic aortic arch. Patency of the innominate image subclavian arteries. The common and internal carotid arteries are patent. Atherosclerosis of the carotid bulbs without significant stenosis. The bilateral anterior and middle cerebral arteries are also patent. The vertebrobasilar system and posterior cerebral arteries are widely patent. There is no aneurysm, high-grade stenosis, or proximal branch occlusion identified. Dural sinuses appear patent. No pneumothorax. Lung apices are clear. Unremarkable soft tissues. Uterine changes of the cervical spine. IMPRESSION: 1. No acute intracranial abnormality. 2. Unremarkable CTA of the head and neck, unchanged from the 01/14/2023 exam. ACT 112: Negative or not required by law. The above report was generated using voice recognition software. It may contain grammatical, syntax or spelling errors. Electronically signed by: Tim Orantes M.D. 02/15/2023 10:[address] 02/15/23 08:10 CT angio head w con, CT head/brain wo con, CT angio neck with con CLINICAL HISTORY: 72 years-old Male with dizziness. Acute dizziness COMPARISON STUDY: Brain MRI and CT examinations 01/14/2013 TECHNIQUE: Unenhanced axial CT scan of the brain is performed. Subsequently, following the IV administration of 114 cc of Optiray, CT angiogram of the head and neck was performed from the aortic arch to the skull apex. Images are reviewed in the axial, sagittal, and coronal planes. 3-D MIPS images are created and assessed. IV contrast was administered without complication. All measurements were obtained according to NASCET criteria. A dose lowering technique was utilized adhering to the principles of ALARA. CT DOSE: 1343.87 mGy.cm FINDINGS: CT BRAIN: There is no acute intracranial hemorrhage, midline shift, hydrocephalus, intracranial mass, territorial ischemia or abnormal extra-axial collections. No abnormal intra-axial or extra-axial enhancement. Involutional changes with chronic microvascular ischemic disease. Postoperative changes of the paranasal sinuses. Mild polypoid mucosal thickening of the maxillary sinuses. Mastoid air cells are clear. No calvarial fracture. Paranasal sinuses are clear. CT ANGIOGRAM OF THE HEAD AND NECK: Three-vessel morphology of the thoracic aortic arch. Patency of the innominate image subclavian arteries. The common and internal carotid arteries are patent. Atherosclerosis of the carotid bulbs without significant stenosis. The bilateral anterior and middle cerebral arteries are also patent. The vertebrobasilar system and posterior cerebral arteries are widely patent. There is no aneurysm, high-grade stenosis, or proximal branch occlusion identified. Dural sinuses appear patent. No pneumothorax. Lung apices are clear. Unremarkable soft tissues. Uterine changes of the cervical spine. IMPRESSION: 1. No acute intracranial abnormality. 2. Unremarkable CTA of the head and neck, unchanged from the 01/14/2023 exam. ACT 112: Negative or not required by law. The above report was generated using voice recognition software. It may contain grammatical, syntax or spelling errors. Electronically signed by: Tim Orantes M.D. 02/15/2023 10:53 AM ECG Additional Comments: Sinus bradycardia Otherwise normal ECG When compared with ECG of 14-JAN-2023 12:35, No significant change was found Code Status & VTE Plan Code Status Full code VTE Prophylaxis Plan VTE Prophylaxis will be ordered: Yes Supervising Physician Co-Signing Physician Notes Patient seen and examined, chart reviewed, case discussed with Erwin Narayanan PA-C and I agree with the assessment and plan as above except as otherwise noted Labs and images reviewed 72-year-old male with past medical history of vertigo, asthma, lumbar radiculopathy, hypertension, and recurrent dizziness/ambulatory dysfunction who presents with an episode of room spinning and dizziness with additional right eye diplopia. Hypertensive 176/84 downtrended to 160s on recheck while in the ER. Patient is also on meloxicam and reports that this is very important for him, as one of the few things that have helped him do well and be more functional with his back pain. At bedside visit he has no facial asymmetry, moves extremities equally, endorses induction of symptoms with moving his head and rotation of the head. Presentation including severe dizziness/spinning incited by head movements is suspicious for vertigo, however monocular diplopia with the left eye covered which patient is very clear that this was a separate finding is not consistent. DDx includes CVA/TIA and hypertensive emergency. Agree with obtaining MRI, and if no CVA is present increasing blood pressure control. Outpatient goal less than 130, patient is generally least in the 160s at home. Discussed with neurology for switch from aspirin to Plavix pending MRI. PG Care Time/CCT Total # of Minutes Spent Total Time Spent with Patient: Total time spent is greater than 50% in coordination of care (as documented) at patient's floor/unit and/or counseling patient: [place] [address] INT INP/OBS CARE MIN Patient Type Established Medical Decision Making Moderate Complexity Diagnoses Stroke-like symptoms R29.90 Hypertension I10 Positive Lyme disease serology R76.8 Gout M10.9
--- NOTE | 2023-02-15 13:00 | Electrocardiogram Report ---
Test Reason : Blood Pressure : / mmHG Vent. Rate : 059 BPM Atrial Rate : 059 BPM P-R Int : 146 ms QRS Dur : 098 ms QT Int : 438 ms P-R-T Axes : 034 002 034 degrees QTc Int : 433 ms Sinus bradycardia Otherwise normal ECG When compared with ECG of 14-JAN-2023 12:35, No significant change was found Confirmed by Wil Richmond ([id number]) on 02/15/2023 1:00:00 PM Referred By: REFERRED SELF Confirmed By:Wil Richmond
[2023-02-15] MEDS: GABAPENTIN 400 MG CAP PO SCH ×2 (16:15→22:05)
--- NOTE | 2023-02-15 18:00 | Magnetic Resonance Report ---
MR brain wo con HISTORY: 72 years-old Male stroke workup acute stroke like symptoms COMPARISON: Head CT of same day, brain MRI 01/14/2023 TECHNIQUE: Multiplanar multisequence MRI of the brain was obtained without the use of IV contrast FINDINGS: No restricted diffusion. Midline structures are unremarkable. Degenerative changes of the cervical sp ine. No acute intracranial hemorrhage, midline shift, abnormal extra-axial collection, hydrocephalus or intra-axial mass. No pathologic blooming artifact. Mild involutional changes with mild T2/FLAIR hy perintense foci throughout the white matter, likely representing chronic microvascular ischemic disea se. Cerebral venous sinuses and major arterial flow voids appear patent. Skull, orbits and soft tissues a re unremarkable. The mastoid air cells are clear. Mild mucosal thickening of the paranasal sinuses. IMPRESSION: 1. No acute intracranial abnormality. 2. No acute or subacute infarct. ACT 112: Negative or not required by law. The above report was generated using voice recognition software. It may contain grammatical, syntax o r spelling errors. Electronically signed by: Tim Orantes M.D. 02/15/2023 5:59 PM
[2023-02-15] MEDS: TAMSULOSIN HCL 0.4 MG CAP PO SCH (22:05)
[2023-02-15] MEDS: allopurinoL 100 MG TAB PO SCH (22:06)
[2023-02-15] MEDS: ENOXAPARIN INJ 40 MG/0.4 ML SYR SQ SCH (22:06)
[2023-02-15] MEDS: ATORVASTATIN 20 MG TAB PO SCH (22:06)
[2023-02-16 00:37] VITALS: RESP 18
[2023-02-16 08:37] LABS: Basophils # (auto) 0.05 K/uL (0.00-0.20); Basophils % (auto) 0.6 %; Eosinophils % (auto) 3.8 %; Hematocrit (blood only) 38.8 % (42.0-52.0); Hemoglobin 13.9 g/dl (14.0-18.0); Immature Granulocytes # (auto) 0.02 K/uL (0.01-0.20); Immature Granulocytes % (auto) 0.3 %; Lymphocytes # (auto) 1.66 K/uL (1.20-3.40); Lymphocytes % (auto) 21.3 %; Mean Corpuscular Hemoglobin 33.3 pg (25.0-34.0); Mean Corpuscular Hgb Conc 35.8 g/dL (32.0-36.0); Mean Platelet Volume 10.6 fL (9.4-12.4); Monocytes # (auto) 0.97 K/uL (0.11-0.59); Monocytes % (auto) 12.4 %; Neutrophils % (auto) 61.6 %; Platelet Count 135 K/uL (130-400); RDW Coefficient of Variation 13.3 % (11.5-14.5); RDW Standard Deviation 45.5 fL (36.4-46.3); Red Blood Count 4.17 M/uL (4.70-6.10)
[2023-02-16 08:50] LABS: Estimated Average Glucose 108 mg/dl; Hemoglobin A1C 5.4 % (4.5-5.6)
[2023-02-16 09:04] LABS: BUN Creatinine Ratio 15.2 (10-20); Calcium 9.5 mg/dl (8.6-10.3); Chol HDL Ratio 4.2 (0-5); Creatinine Clr Calc Pharmacy 68.4 ml/min; Est GFR (African American) 62.9 ml/min; Est GFR (Non-African American) 54.3 ml/min; Magnesium 1.9 mg/dl (1.7-2.4); Potassium 4.2 mmol/L (3.5-5.1)
[2023-02-16] MEDS: allopurinoL 100 MG TAB PO SCH ×2 (09:51→20:27)
[2023-02-16] MEDS: FLUoxetine HCL 10 MG CAP PO SCH (09:52)
[2023-02-16] MEDS: LOSARTAN POTASSIUM 25 MG TAB PO SCH (09:52)
[2023-02-16] MEDS: TAMSULOSIN HCL 0.4 MG CAP PO SCH ×2 (09:52→20:26)
[2023-02-16] MEDS: GABAPENTIN 400 MG CAP PO SCH ×3 (09:52→20:27)
[2023-02-16] MEDS: ASPIRIN 81 MG ECTAB PO SCH (09:52)
[2023-02-16] MEDS: ONDANSETRON INJ 2 MG/ML 2 ML VIAL IV PRN ×2 (10:01→20:26)
--- NOTE | 2023-02-16 10:26 | Neurology Consultation ---
Date of Consultation February 16, 2023 Assessment & Plan (1) Vertigo: (2) Headache: Plan 72-year-old male with probable recurrence of benign positional paroxysmal vertigo. He has had some associated visual symptoms including motion of objects as well as transient diplopia. His symptoms seem to be short-lived and provoked by change in position and are associated with nausea and inability to stand. He also has a low-grade global headache with associated light sensitivity. He endorses a longstanding history of intermittent headache with migrainous features although has never been formally diagnosed with migraine. Another diagnostic possibility here is migraine associated vertigo. A posterior circulation TIA is also possible. I note he has had 2 unremarkable neuroimaging evaluations recently without evidence of vascular lesion or acute or subacute infarct. He does have a mild degree of chronic microvascular ischemic disease involving the kaylah and cerebral hemispheres. He does have a history of hypertension which appears to be better controlled compared with his [facility]. He does not have an ophthalmoplegia on examination this morning. His symptoms do not seem consistent with myasthenia gravis. Agree with PT/OT evaluation. PT should be helpful for BPPV. He has benefited from Aishwarya maneuvers in the past. Would continue with aspirin and atorvastatin as ordered. Would not recommend clopidogrel at this time. Would consider 30-day mobile cardiac outpatient telemetry. Agree with meclizine and ondansetron as ordered. Continue medical management of hypertension. May be seen in neurology clinic for outpatient follow-up in 2 to 3 weeks. If his vertiginous symptoms do not respond to physical therapy, may consider treatment from the perspective of migraine associated vertigo. In that context, a trial of verapamil or other migraine preventative medication could be considered. Would also consider a referral to a vestibular center as an outpatient. History of Present Illness Reason for Consultation: vertigo/TIA? Requesting Physician: Lady Attending Physician: Cece Morris MD History of Present Illness The patient is a 72-year-old male with a chief complaint of vertigo with associated nausea, dry heaves, and vision disturbance characterized by horizontal movement of objects in his visual field as well as horizontal/vertical diplopia. The vertiginous episodes are exacerbated by either sitting up or lying back, a bit worse with head turn to the right, no associated hearing loss, tinnitus, or ear pain. When the vertigo is severe, he is unable to stand and walk. He was treated for benign positional paroxysmal vertigo several years ago at [facility]. He also complains of frequent headache with associated light and sound sensitivity. He began experi encing these headaches as a young adult. He currently complains of a mild to moderate global headache. He has never been diagnosed with migraine. He denies fever or neck stiffness. The patient was admitted to the [facility] 1 month ago for complaint of left facial numbness, neck pain, dizziness, and perhaps some associated word finding difficulty occurring in the context of hypertension. He had an unremarkable stroke evaluation at that time including CTA of the head and neck, brain MRI, and echocardiography. He has no known history of atrial fibrillation. Past medical history is notable for hypertension and dyslipidemia. He has also had 2 lumbar surgeries and has chronic low back pain, prescribed gabapentin and meloxicam, ambulates independently. He has undergone repeat neuroimaging evaluation including CT angiography of the head and neck, CT of the head, and brain MRI. As before, no vascular lesion identified, no hemorrhage or acute process. There is evidence of mild chronic microvascular ischemic disease on brain MRI involving the kaylah and both cerebral hemispheres. I independently reviewed these images. Currently, the patient complains of low-grade headache as above as well as very mild dizziness that is worse with either sitting up or lying back. He denies true vertigo at this time. He does not endorse any other specific symptoms currently. Allergies Allergy/AdvReac Type Severity Reaction Status Date / Time oxycodone AdvReac Unknown Hallucinati Verified 10/27/22 11:48 ng Home Medications Medication Instructions Recorded Confirmed Type allopurinol 100 mg tablet 100 mg PO BID 06/13/19 02/15/23 History atorvastatin 20 mg tablet 20 mg PO HS 06/13/19 02/15/23 History fluoxetine 20 mg tablet 10 mg PO QAM 06/13/19 02/15/23 History gabapentin 300 mg capsule 400 mg PO TID 07/30/21 02/15/23 History tamsulosin 0.4 mg capsule 0.4 mg PO BID #60 caps 09/22/21 02/15/23 Rx azelastine 137 mcg (0.1 %) nasal 2 spray intranasal BID #30 mL 10/23/21 02/15/23 Rx spray aerosol albuterol sulfate 90 mcg/actuation 2 inh inhalation Q6H PRN shortness 06/18/22 02/15/23 Rx aerosol inhaler (Proventil HFA) of breath or wheezing #8.5 grams meloxicam 15 mg tablet 15 mg PO QAM 01/14/23 02/15/23 History aspirin 81 mg tablet,delayed 81 mg PO QAM #0 tabs 01/15/23 02/15/23 Rx release losartan 25 mg tablet 25 mg PO DAILY 02/15/23 02/15/23 History Patient History Medical History Hypertension Lumbar radiculopathy Stroke pt unaware Nasal polyps hx of History of anesthesia reaction WITH APPENDECTOMY SURGERY WAS TOLD WOKE UP VIOLENT, DOES NOT REMEMBER History of prostate cancer RADIATION MAR 2020-APR 2020 Spinal stenosis Neuropathy BOTH FEET History of gout Sleep apnea CPAP Hypercholesterolemia Surgical History History of endoscopic sinus surgery History of appendectomy History of colonoscopy History of carpal tunnel release of both wrists H/O knee surgery X1, ARTHROSCOPY H/O elbow surgery X2 History of back surgery X2 Family History Brother No problems noted. Other No family history of adverse response to anesthesia No family history of bleeding disorder Social History Smoking Status: Never smoker Tobacco Type: Cigarettes Age Started Using Tobacco: 22; Age Quit Using Tobacco: 42; packs per day: 1.5; Cigarettes Per Day: 30; Second Hand Exposure: No; Do You Dip or Chew Tobacco: No; Hx Alcohol Use: Yes Alcohol type: beer and hard liquor Alcohol Intake Frequency: 2-3 x/Week Hx Substance Use: No Preferred Language: [place] Communication Ability: Effective Visual Impairment: Partially Limited Hearing Ability: Hard of Hearing Order Manager Required: No Beliefs That Will Affect Care: None marital status: Current Living Situation: Spouse current occupational status: retired current occupation: retired as [employer] institution How many Children do You have: 1 Feels Safe at Home: Yes Safety Concerns: Feels Safe At This Time Childhood Exposure to Second-Hand Smoke: Yes caffeine: Yes (coffee once per day) during the past year weight has: remained stable Dental Care, Regularly: Yes Physical Activity Frequency: 1-2 Times per Week Seatbelt Use: always Sunscreen Use: No Assistive Devices: CPAP, Glasses and Hearing Aid - Bilateral Review of Systems Constitutional: no fever and no chills Eyes: as per Subjective / HPI and + diplopia; no blind spots and no eye pain Ear, Nose, Mouth, Throat: as per Subjective / HPI; no ear pain, no tinnitus and no hearing loss Respiratory: no cough and no dyspnea Cardiovascular: no chest pain and no palpitations Gastrointestinal: + nausea; no vomiting Genitourinary: no dysuria or no urinary incontinence Musculoskeletal: + back pain and + body aches; no neck pa in Integumentary: no rash and no lesions Neurologic: as per Subjective / HPI, + unsteadiness, + dizziness and + headache(s); no localized weakness, no loss of sensation, no tremor(s), no abnormal movements, no syncope, no abnormal speech, no confusion and no memory loss Psychiatric: no depression and no anxiety Hematologic / Lymphatic: no easy bleeding and no easy bruising Exam (Neuro) Constitutional: well developed and well nourished Eyes: normal visual luna by confrontation, PERRL, normal accommodation and EOM intact bilaterally; no nystagmus Neurologic: Oriented to:: Person, Place and Time Memory: Short Term Intact and Remote Intact Attention: Span Intact and Concentration Intact Speech Fluency: negative Dysarthria or Dysfluency Speech Aphasia: negative Aphasia Fund of Knowledge: Current Events, Past History and Vocabulary Cranial Nerves: Normal II, III, IV, , V, VII, VIII, IX, X, XI and XII Motor Strength: Normal Lower Extremities and Normal Upper Extremities Motor Tone: Normal Lower Extremities and Normal Upper Extremities Muscle Bulk/Involuntary Movements: No Involuntary Movements; negative Muscle Atrophy Sensation: Light Touch Intact, Pain/Temperature Intact, Vibration Intact and Proprioception Intact Coordination: Limited Balance; negative Dysdiadochokinesia, Finger- Nose Abnormal or Heel-Patino Abnormal Deep Tendon Reflexes: Rt Triceps: 2+, Lt Triceps: 2+, Rt Biceps: 2+, Lt Biceps: 2+, Rt Brachioradialis: 2+, Lt Brachioradialis: 2+, Rt Patellar: 2+, Lt Patellar: 2+, Rt Ankle: 2+ and Lt Ankle: 2+ Details: Patient able to stand up from bed, station normal, reluctant to ambulate due to dizziness. Results & Data Vital Signs (Past 12 Hours) Vital Signs Temp Pulse Pulse Resp BP Pulse Ox O2 Del Method 02/16/23 07:48 36.5 C 62 18 138/79 95 Room Air 02/16/23 07:10 75 02/16/23 03:43 36.6 C 63 18 127/77 94 Room Air 02/16/23 00:00 36.5 C 62 18 125/70 94 Room Air 02/15/23 22:00 51 L Laboratory Results WBC 7.80, hemoglobin 13.9, hematocrit 38.8, platelet count 135, sodium 141, potassium 4.2, BUN 20, creatinine 1.32, glucose 85, hemoglobin A1c 5.4, magnesium 1.9, AST 20, ALT 24, triglycerides 255, cholesterol 135, LDL 52, HDL 32, SARS-CoV-2 testing negative. Western blot completed this past July and January revealed 2 reactive IgG bands and 1 reactive IgM band. Diagnostic Findings CT of the head, CTA of the head and neck, and brain MRI are as described in the HPI, I independently reviewed these images. Electrocardiogram reveals sinus bradycardia, 59 bpm. An echocardiogram completed January 15, 2023 revealed normal left ventricular systolic function, no regional wall motion abnormalities, EF 55 to 60%, no interatrial shunt with injection of contrast, left atrium mildly dilated. Coding Level of Care Code 61795 INT INP/OBS CARE 3/75MIN Diagnoses Vertigo R42 Headache R51.9 Time Spent (min) 80
[2023-02-16] MEDS: MECLIZINE HCL 25 MG TAB PO PRN (10:37)
--- NOTE | 2023-02-16 12:22 | Hospitalist Progress Note ---
Date of Service February 16, 2023 Assessment & Plan (1) Vertigo: Plan: Most likely BPPV Now s/p Aishwarya maneuver Patient still has some vertigo upon slight head movement or even eye movement There could be a component of migraine headache too, given photophobia and head ache MRI did not show any pathology Neurology on board appreciate recs May add Verapamil upon d/c as suggested by Neurology (2) Stroke-like symptoms: Plan: Most likley BPPV as above (3) Hypertension: Plan: according to patient, his BP could be very labile, fluctuating up and down Currently under good control Continue Losartan 25mg (4) Positive Lyme disease serology: Plan: -Was started on 28 day course of Doxycyline on last admission -Western Blot came back negative, PCP stopped doxcycline -Continue to hold at this time (5) Gout: Plan: -Continue allopurinol Plan Monitor 1 more day Admission and Anticipated Discharge Date Admission Date: February 15, 2023 Subjective patient seen and examined, post epleys mandaneur, still having some headache Review of Systems Review of Systems: All systems reviewed are negative, apart from the ones contained in the history. Physical Exam Physical Exam: The patient is awake, alert and oriented 3, well developed and well nourished, normocephalic and atraumatic, lying in bed and in no acute distress. HEENT--PERRL, EOMI, mucous membranes and oropharynx mildly dry Neck--supple. No JVD. No bruits. Thyroid normal, trachea midline, no adenopathy. Heart--normal S1 and S2. No murmurs, rubs or gallops. Lungs--clear bilaterally, no respiratory distress, no accessory muscle use. Abdomen--normal bowel sounds and soft. Mild epigastric and left sided abdominal pain Extremities--no cyanosis or clubbing. No edema. Dermatologic--normal skin turgor, normal color, no abnormal lymph nodes, no rash. Neurologic--cranial nerves II through XII grossly intact. Rheumatologic--normal range of motion. Psychiatric--normal affect. Results & Data Results & Data Vital Signs (Past 12 Hours) Vital Signs Temp Pulse Pulse Resp BP Pulse Ox O2 Del Method 02/16/23 11:23 98.2 F 56 L 18 111/63 96 Room Air 02/16/23 07:48 97.7 F 62 18 138/79 95 Room Air 02/16/23 07:10 75 02/16/23 03:43 97.9 F 63 18 127/77 94 Room Air PG Care Time/CCT Total # of Minutes Spent Total Time Spent with Patient: Total time spent is greater than 50% in coordination of care (as documented) at patient's floor/unit and/or counseling patient: Coding Level of Care Code 39639 SUB INP/OBS CARE 2/35MIN Diagnoses Vertigo R42 Stroke-like symptoms R29.90 Hypertension I10 Positive Lyme disease serology R76.8 Gout M10.9 Time Spent (min) 35
[2023-02-16] MEDS: ENOXAPARIN INJ 40 MG/0.4 ML SYR SQ SCH (20:27)
[2023-02-16] MEDS: ATORVASTATIN 20 MG TAB PO SCH (20:27)
[2023-02-17 07:52] LABS: Basophils # (auto) 0.03 K/uL (0.00-0.20); Basophils % (auto) 0.4 %; Eosinophils # (auto) 0.34 K/uL (0.00-0.50); Eosinophils % (auto) 4.8 %; Hematocrit (blood only) 42.9 % (42.0-52.0); Hemoglobin 14.6 g/dl (14.0-18.0); Immature Granulocytes # (auto) 0.02 K/uL (0.01-0.20); Immature Granulocytes % (auto) 0.3 %; Lymphocytes # (auto) 1.47 K/uL (1.20-3.40); Lymphocytes % (auto) 20.7 %; Mean Corpuscular Hemoglobin 32.3 pg (25.0-34.0); Mean Corpuscular Volume 94.9 fL (80.0-100.0); Mean Platelet Volume 10.6 fL (9.4-12.4); Monocytes # (auto) 0.82 K/uL (0.11-0.59); Monocytes % (auto) 11.6 %; Neutrophils # (auto) 4.41 K/uL (1.40-6.50); Neutrophils % (auto) 62.2 %; Platelet Count 134 K/uL (130-400); RDW Coefficient of Variation 13.2 % (11.5-14.5); RDW Standard Deviation 46.4 fL (36.4-46.3); Red Blood Count 4.52 M/uL (4.70-6.10); White Blood Count 7.09 K/ul (4.8-10.8)
[2023-02-17] MEDS: ASPIRIN 81 MG ECTAB PO SCH (08:09)
[2023-02-17] MEDS: FLUoxetine HCL 10 MG CAP PO SCH (08:09)
[2023-02-17] MEDS: allopurinoL 100 MG TAB PO SCH (08:09)
[2023-02-17] MEDS: MECLIZINE HCL 25 MG TAB PO PRN (08:09)
[2023-02-17] MEDS: LOSARTAN POTASSIUM 25 MG TAB PO SCH (08:10)
[2023-02-17] MEDS: TAMSULOSIN HCL 0.4 MG CAP PO SCH (08:10)
[2023-02-17] MEDS: GABAPENTIN 400 MG CAP PO SCH (08:10)
[2023-02-17 09:06] LABS: BUN Creatinine Ratio 15.2 (10-20); Calcium 9.6 mg/dl (8.6-10.3); Creatinine Clr Calc Pharmacy 61.9 ml/min; Est GFR (African American) 56.1 ml/min; Est GFR (Non-African American) 48.4 ml/min; Magnesium 1.9 mg/dl (1.7-2.4); Potassium 4.1 mmol/L (3.5-5.1)
[2023-02-17 11:25] VITALS: BP 159/80; PULSE 70; TEMP 97.7; O2SAT 95
--- NOTE | 2023-02-17 12:40 | Discharge Summary ---
Date of Service February 17, 2023 Admission HPI Per Admitting Provider Cooper is a 72-year-old male with a past medical history of asthma, lumbar radiculopathy, nasal turbinate hypertrophy, prostate cancer, gout, hearing loss who presented to the [facility] ED on 02/15 for recurrence of dizziness/ambulatory dysfunction and new onset right eye vision changes. He was initially noted to be hypertensive at 176/84 but was otherwise stable. Labs including CBC, CMP, and high sen trop were unremarkable. CT of the head/brain wo con and CTA of the head/neck were read as "1. No acute intracranial abnormality. 2. Unremarkable CTA of the head and neck, unchanged from the 01/14/2023 exam.". ECG showed sinus bradycardia at [address] segment or T-wave changes. Prior to admission the patient was given 25 mg PO Meclizine, 4 mg IV zofran, and 1L NSS without improvement of symptoms. The patient was recently admitted from 01/14-01/15 for acute onset of left sided facial numbness, left neck pain, and dizziness. His stroke workup including MRI of the brain wo con, CT head wo con, and CT of the head/neck w/con were unremarkable. He was found to have positive Lyme IgG and IgM testing and was started on a 28 day course of PO Doxycycline. He was also started on 81 mg daily aspirin during admission and on discharge. At the time of the exam the patient was lying in bed in no acute distress with his sitting bedside, history was obtained from both. He states that he was in his normal state of health until the evening of 02/13 when he developed acute onset of dizziness and nausea after yawning. Symptoms have persisted throughout the weekend despite using 3 doses of meclizine per his . Last night the patient was lying in bed, in the dark, when he developed right eye diplopia while looking at his bedside clock. He tested his vision in both eyes individually and confirmed he was experiencing the double vision in the right eye. He states that this resolved by the time he woke this am, but he was still experiencing significant dizziness which is constant, even at rest, but significantly exacerbated with movement of his head/eyes. He and his state that the patient was admitted to [facility] approximately 6 years ago for vertigo. His symptoms resolved after undergoing Aishwarya maneuver with PT. He confirms that his symptoms, expect for his right eye vision changes, are similar to previous admission for vertigo. The patient states that he has been taking his aspirin and statin daily since last admission. He was started on low dose Losartan last month for HTN, his states that the patient's systolic BP has been consistently running in the 160's despite starting the Losartan. He is a full code. Principal Diagnosis BPPV Discharge Exam The patient is awake, alert and oriented 3, well developed and well nourished, normocephalic and atraumatic, lying in bed and in no acute distress. HEENT--PERRL, EOMI, mucous membranes and oropharynx mildly dry Neck--supple. No JVD. No bruits. Thyroid normal, trachea midline, no adenopathy. Heart--normal S1 and S2. No murmurs, rubs or gallops. Lungs--clear bilaterally, no respiratory distress, no accessory muscle use. Abdomen--normal bowel sounds and soft. Mild epigastric and left sided abdominal pain Extremities--no cyanosis or clubbing. No edema. Dermatologic--normal skin turgor, normal color, no abnormal lymph nodes, no rash. Neurologic--cranial nerves II through XII grossly intact. Rheumatologic--normal range of motion. Psychiatric--normal affect. Discharge Data Allergies Allergy/AdvReac Type Severity Reaction Status Date / Time oxycodone AdvReac Unknown Hallucinati Verified 10/27/22 11:48 ng Consultations 02/15/23 11:30 ED Decision to Admit Stat 02/15/23 18:51 Consult Neurology Routine Ordered Studies 02/15/23 08:08 CT angio head w con Stat CT angio neck with con Stat 02/15/23 08:10 CT head/brain wo con Stat 02/15/23 12:20 MRI Brain [MR brain wo con] Urgent Hospital Course (1) Vertigo: Most likely BPPV Now s/p Aishwarya maneuver Patient still has some vertigo upon slight head movement or even eye movement There could be a component of migraine headache too, given photophobia and headache MRI did not show any pathology Neurology on board appreciate recs Patient still having severe episodes of vertigo despite Aishwarya maneuver We will discharge him on p.o. verapamil 180 mg twice daily to follow-up with neurology outpatient Also as needed meclizine (2) Stroke-like symptoms: Most likley BPPV as above (3) Hypertension: according to patient, his BP could be very labile, fluctuating up and down Currently under good control Continue Losartan 25mg (4) Positive Lyme disease serology: -Was started on 28 day course of Doxycyline on last admission -Western Blot came back negative, PCP stopped doxcycline -Continue to hold at this time (5) Gout: -Continue allopurinol Plan Monitor 1 more day Total Time Total Time Spent Total Time Spent (In Minutes): 35 Discharge Plan Discharge Items Patient Disposition: Home - Self-Care Reason For Visit: DIZZINESS, AMBULATORY DYSFUNCTION, STROKE/TIA WORK Discharge Diagnosis: BPPV Activity: Resume your previous activity Non-emergency contact: Primary Care Provider and Neurologist Call non-emergency contact if: you have any medication questions Follow-up/Referrals: Anisha Arreaga PA-C [Primary Care Provider] - 02/26/23 3:00 pm Diet: Regular Addtl Attending Provider Instructions: We have started you on Verapamil for suspected migraine with vertigo as suggested by Neurology. Please make appointment to see a neurologist in 1 week Pending Studies at Discharge: No Stand-Alone Forms: My [facility] [employer], Smoking Cessation Medications and DC Order Prescriptions: New verapamil 180 mg Tablet Extended Release 180 mg PO BID 30 Days Qty: 60 0RF meclizine 25 mg Tablet 25 mg PO Q6H PRN (Reason: dizziness) Qty: 10 0RF Continued tamsulosin 0.4 mg capsule 0.4 mg PO BID Qty: 60 5RF Rx Instructions: Twice a day with food. azelastine 137 mcg (0.1 %) aerosol,spray 2 spray intranasal BID Qty: 30 3RF atorvastatin 20 mg Tablet 20 mg PO HS allopurinol 100 mg Tablet 100 mg PO BID fluoxetine 20 mg Tablet 10 mg PO QAM gabapentin 300 mg capsule 400 mg PO TID albuterol sulfate [Proventil HFA] 90 mcg/actuation HFA aerosol inhaler 2 inh inhalation Q6H PRN (Reason: shortness of breath or wheezing) Qty: 8.5 0RF meloxicam 15 mg tablet 15 mg PO QAM aspirin 81 mg Tablet,Delayed Release (Dr/Ec) 81 mg PO QAM Qty: 0 0RF losartan 25 mg tablet 25 mg PO DAILY Discharge Orders: Discharge Order (Routine); Ordered 02/17/23 Ordered By: Cece Morris Admission Data Admit Date/Time: 02/15/23 11:42 Attending Provider: Cece Morris Admit Provider: Iban Henderson Primary Care Provider: Anisha Arreaga Other Providers: Iban Henderson; Sha De La Rosa Other Interventions: Discharge Summary Assessment (RN) Last Done: 02/17/23 11:47 Coding Level of Care Code 21580 INP/OBS DISCH >30 MIN Diagnoses Vertigo R42 Stroke-like symptoms R29.90 Hypertension I10 Positive Lyme disease serology R76.8 Gout M10.9 Time Spent (min) 35
[2023-02-17] MEDS ORDERED: VERAPAMIL HCL 180 MG TABCR PO SCH (21:00)
== END 2023-02-17 13:00 | disposition home or self-care (01) ==
LOC: ED 07:50 → EDINP 07:50 → SUATTDRO 11:42 → 2N 14:10
DX: R29.90 Unspecified symptoms and signs involving the nervous system; Z88.5 Allergy status to narcotic agent; Z79.82 Long term (current) use of aspirin; Z79.899 Other long term (current) drug therapy; R51.9 Headache, unspecified; R76.8 Other specified abnormal immunological findings in serum; I10 Essential (primary) hypertension; M10.9 Gout, unspecified; R42 Dizziness and giddiness; Z87.891 Personal history of nicotine dependence

== ENCOUNTER 2024-11-06 15:57 | Observation (INO) ==
--- NOTE | 2024-11-06 16:16 | Emergency Department Note ---
Impression & Plan Fall, Trauma, Acute shoulder pain, Ambulatory dysfunction ED Provider Note NAME: FABIEN TOURE AGE: 74 SEX: M : 1950 ARRIVES VIA: Walk-In INFORMANT: Patient ED PROVIDER(S): Riaz Corral DO CHIEF COMPLAINT: trauma HPI: Patient is a 74-year-old male with a past pretension and vertigo who presents to the ER status post being hit by a tree. The tree was on the ground and he was cutting it and it kicked back and hit him in the left humerus/chest and abdomen. He notes episode quickly does not remember. He does believe he was knocked out for several seconds. Denies any head pain or neck pain. He admits to lower back pain which is chronic but worse. Denies any weakness or numbness in the arms or legs. No tingling or numbness. This happened around 2:00 today. History of notes that she was not there when this occurred. Denies any blood thinners. ADDITIONAL HISTORY OBTAINED: Per HPI Chronic Medical/Social Conditions Affecting Care: Per HPI PAST MEDICAL HISTORY:See Below PAST SURGICAL HISTORY:See Below FAMILY HISTORY:See Below SOCIAL HISTORY:See Below HOME MEDICATIONS:See Below ALLERGIES:See Below VITALS:See Below PHYSICAL EXAMINATION: Primary Survey Airway: Intact Breathing: Normal, breath sounds equal bilaterally Circulation: Skin warm, distal pulses 2+, capillary refill less than 2 seconds Disability Pupils: Equal and reactive to light, mm, brisk GCS: 15 Secondary Survey GENERAL: alert, well appearing, well nourished, no distress, non-toxic HEAD: normal cephalic, atraumatic EYE EXAM: normal conjunctiva, PERRL and EOM's grossly intact OROPHARYNX: no exudate, no erythema, lips, buccal mucosa, and tongue normal and mucous membranes are moist NECK: supple, no nuchal rigidity, no adenopathy, non-tender CHEST: Tenderness over the left anterior chest wall and lateral chest wall. LUNGS: clear to auscultation. Normal chest wall mechanics HEART: no murmurs, S1 normal and S2 normal ABDOMEN: abdomen soft, non-tender, normo-active bowel sounds, no masses, no rebound or guarding. PELVIS: stable to compression anteriorly and posteriorly BACK: Back is symmetrical on inspection and there is no deformity, no midline tenderness, no CVA tenderness. UPPER EXTREMITIES: full active and passive range of motion of all joints without tenderness to palpation with the exception of the left humerus with minimal tenderness on palpation. Radial pulses are 2 out of 4. Gross sensation is intact. No tenderness throughout the hand, wrist or forearm. LOWER EXTREMITIES: full active and passive range of motion of all joints without tenderness to palpation NEURO EXAM: Normal sensorium, cranial nerves II-XII grossly intact, normal speech, no gross weakness of arms, no gross weakness of legs. GCS: 15. MEDICAL DECISION MAKING: Patient is a 74-year-old male who presents to the ER for the above-stated complaint. IV was established and blood work was obtained. Labs show mild leukocytosis 11,000. No significant anemia. INR unremarkable. BMP with LFTs bilirubin and lipase was unremarkable. C-spine cleared at 6 PM. Spoke with the radiologist who denied seeing any fractures on the CT of the chest of the left humerus/shoulder. CT trauma scan shows no acute fractures. X-ray of the left humerus shows no obvious fractures. Patient was having a fair amount of pain with abduction and consequently x-ray of the shoulder dedicated was obtained and was unremarkable. Patient was unable to walk secondary to the back pain. He was given IV morphine. Discussed case with the hospitalist for further evaluation management treatment and likely evaluation by orthopedics. Consults/Care Managements Discussions: Per [facility] Triage Nursing notes reviewed. Limited review of prior medical records performed Vital Signs: reviewed and remarkable for no significant abnormalities Differential diagnosis: Differential diagnoses include major intracranial, cervical, spinal, thoracic, abdominal, pelvic and neurologic injury. Fracture, contusion, sprain, strain, laceration, abrasions included as well. ER treatment provided: See below Diagnostics interpreted by me include EKG and cardiac monitoring as listed below: -Cardiac Monitoring: An order was placed for continuous cardiac monitoring. The monitor shows a rate of 80 with sinus rhythm. -ECG: Sinus rhythm rate of 67 normal axis No PVCs QTc 450 -Laboratory studies:Interpreted by me as stated above in MDM and shown below. Imaging studies: Xrays: As interpreted by me: X-ray left humerus shows no acute fractures X-ray of the left shoulder showed no acute fractures CTs show: CT trauma scan as described above Procedures:none Critical Care: None Past Med/Surg History Problem List (Updated 11/07/24 @ 00:07 by Riaz Corral DO) Ambulatory dysfunction (Acute) Acute shoulder pain (Acute) Low back pain Trauma (Acute) Fall (Acute) Lumbar spinal stenosis Urinary urgency Headache Vertigo (Acute) Hypertension (Acute) Positive Lyme disease serology (Acute) Stroke-like symptoms (Acute) COVID-19 (Acute) Sensorineural hearing loss (SNHL) of both ears Encounter for pre-operative examination History of prostate cancer (Chronic) RADIATION MAR 2020-APR 2020 Hypertrophy of both inferior nasal turbinates Chronic sinusitis, unspecified Nasal polyposis Seasonal allergies Stroke Malignant neoplasm of prostate (Chronic 12/14/19) Bronchitis Asthma Gout Elevated PSA Medical History (Updated 11/07/24 @ 00:07 by Riaz Corral DO) History of asthma remote hx Chronic sinusitis no known current infection. Arthritis Bulging lumbar disc Lumbar spinal stenosis Anxiety History of migraine headaches History of Lyme disease History of prostate cancer dx 2018 , hx radiation. History of COVID-21 June 2022 > not hospitalized Vertigo admitted to [facility] for this on 02/15/23. Minor occurences since with vertigo on occ/ no recent. Hypertension Lumbar radiculopathy Stroke no official dx of/ has had Brain MRI's in hx: "indicated might have been something, probably past stroke, never sure , never confirmed" per pt. Brain MRI [place] approx 2018 after back sx couldn't use arm. determined to be positional / disc issues. History of anesthesia reaction WITH APPENDECTOMY SURGERY WAS TOLD WOKE UP VIOLENT, DOES NOT REMEMBER Spinal stenosis Neuropathy BOTH FEET History of gout Sleep apnea CPAP Hypercholesterolemia Surgical History History of endoscopy upper History of right cataract surgery History of arthroscopy of left knee Hx of left cataract extraction S/P epidural steroid injection History of endoscopic sinus surgery History of appendectomy History of colonoscopy History of carpal tunnel release of both wrists H/O elbow surgery X2 History of back surgery X2 > lumbar Family History Brother No problems noted. Other No family history of adverse response to anesthesia No family history of bleeding disorder Social History Smoking Status: Never smoker Tobacco Type: Cigarettes Age Started Using Tobacco: 22; Age Quit Using Tobacco: 42; packs per day: 1.5; Cigarettes Per Day: 30; Second Hand Exposure: No; Do You Dip or Chew Tobacco: No; Hx Alcohol Use: No Hx Substance Use: No Preferred Language: Citizen Of [place] Communication Ability: Effective Visual Impairment: Partially Limited Hearing Ability: Hard of Hearing Storeroom Attendant Required: No Beliefs That Will Affect Care: None marital status: Current Living Situation: Spouse Current Living Situation Comment: lives at home with current occupational status: retired current occupation: retired as [employer] How many Children do You have: 1 Feels Safe at Home: Yes Childhood Exposure to Second-Hand Smoke: Yes caffeine: Yes (coffee once per day) during the past year weight has: remained stable Dental Care, Regularly: Yes Physical Activity Frequency: 1-2 Times per Week Seatbelt Use: always Sunscreen Use: No Assistive Devices: None Allergies Allergies Allergy/AdvReac Type Severity Reaction Status Date / Time oxycodone AdvReac Unknown Hallucinati Verified 07/21/24 08:16 ng Home Meds Home Medications Medication Instructions Recorded Confirmed allopurinol 100 mg tablet 100 mg PO BID 06/13/19 11/06/24 atorvastatin 20 mg tablet 20 mg PO HS 06/13/19 11/06/24 fluoxetine 20 mg tablet 10 mg PO QAM 06/13/19 11/06/24 losartan 25 mg tablet 25 mg PO QAM 02/15/23 11/06/24 cyclobenzaprine 5 mg tablet 5 mg PO TID PRN Back Pain 08/03/23 11/06/24 montelukast 10 mg tablet 10 mg PO PM 07/13/24 11/06/24 Previous Rx's Medication Instructions Recorded tamsulosin 0.4 mg capsule 0.4 mg PO BID #60 caps 09/22/21 pregabalin 50 mg capsule (Lyrica) 50 mg PO BID #180 caps 10/20/24 Results & Data (ED) Vital Signs Vital Signs - 24 hr 11/06/24 16:01 11/06/24 16:06 11/06/24 16:06 Temperature 36.7 C 36.7 C 36.7 C Temperature Source Temporal Artery Scan Oral Pulse Rate 85 75 Pulse Rate [Apical] 75 Pulse Rate from SpO2 Sensor Respiratory Rate 18 23 23 Respiratory Effort / Characteristics Non-Labored Spontaneous Non-Labored Spontaneous Respiratory Depth Normal Normal Respiratory Pattern Regular Regular Blood Pressure 138/86 158/89 H Blood Pressure [Right Arm] 158/89 H Blood Pressure Mean 103 Blood Pressure Mean [Right Arm] 112 Blood Pressure Position Sitting Blood Pressure Position [Right Arm] Pulse Oximetry 99 100 100 Oxygen Delivery Method Room Air Room Air Room Air Oxygen Flow Rate 0 Sepsis Recent Fever Within 48 Hours No Sepsis New/Unexplained Change in Mental Status No Sepsis Action Taken by Nursing No Action Required 11/06/24 16:06 11/06/24 16:11 11/06/24 16:49 Temperature Temperature Source Pulse Rate 75 Pulse Rate [Apical] Pulse Rate from SpO2 Sensor Respiratory Rate Respiratory Effort / Characteristics Respiratory Depth Respiratory Pattern Blood Pressure Blood Pressure [Right Arm] Blood Pressure Mean Blood Pressure Mean [Right Arm] Blood Pressure Position Blood Pressure Position [Right Arm] Pulse Oximetry 100 100 Oxygen Delivery Method Room Air Room Air Oxygen Flow Rate Sepsis Recent Fever Within 48 Hours Sepsis New/Unexplained Change in Mental Status Sepsis Action Taken by Nursing 11/06/24 17:00 11/06/24 17:00 11/06/24 17:00 Temperature 36.7 C Temperature Source Oral Pulse Rate Pulse Rate [Apical] 78 Pulse Rate from SpO2 Sensor Respiratory Rate 19 Respiratory Effort / Characteristics Non-Labored Spontaneous Respiratory Depth Normal Respiratory Pattern Regular Blood Pressure 145/78 H 145/78 H Blood Pressure [Right Arm] 145/78 H Blood Pressure Mean 100 100 Blood Pressure Mean [Right Arm] 100 Blood Pressure Position Blood Pressure Position [Right Arm] Pulse Oximetry 100 Oxygen Delivery Method Room Air Oxygen Flow Rate Sepsis Recent Fever Within 48 Hours Sepsis New/Unexplained Change in Mental Status Sepsis Action Taken by Nursing 11/06/24 17:00 11/06/24 17:06 11/06/24 17:12 Temperature Temperature Source Pulse Rate 80 80 Pulse Rate [Apical] Pulse Rate from SpO2 Sensor 79 80 Respiratory Rate 17 19 Respiratory Effort / Characteristics Respiratory Depth Respiratory Pattern Blood Pressure 145/78 H Blood Pressure [Right Arm] Blood Pressure Mean 100 Blood Pressure Mean [Right Arm] Blood Pressure Position Blood Pressure Position [Right Arm] Pulse Oximetry 100 100 Oxygen Delivery Method Oxygen Flow Rate Sepsis Recent Fever Within 48 Hours Sepsis New/Unexplained Change in Mental Status Sepsis Action Taken by Nursing 11/06/24 17:21 11/06/24 17:24 11/06/24 17:30 Temperature Temperature Source Pulse Rate 79 79 Pulse Rate [Apical] Pulse Rate from SpO2 Sensor 79 77 Respiratory Rate 34 H 18 Respiratory Effort / Characteristics Respiratory Depth Respiratory Pattern Blood Pressure 120/84 Blood Pressure [Right Arm] Blood Pressure Mean 93 Blood Pressure Mean [Right Arm] Blood Pressure Position Blood Pressure Position [Right Arm] Pulse Oximetry 98 99 Oxygen Delivery Method Oxygen Flow Rate Sepsis Recent Fever Within 48 Hours Sepsis New/Unexplained Change in Mental Status Sepsis Action Taken by Nursing 11/06/24 17:39 11/06/24 17:42 11/06/24 17:51 Temperature Temperature Source Pulse Rate 72 76 75 Pulse Rate [Apical] Pulse Rate from SpO2 Sensor 73 76 76 Respiratory Rate 19 20 20 Respiratory Effort / Characteristics Respiratory Depth Respiratory Pattern Blood Pressure Blood Pressure [Right Arm] Blood Pressure Mean Blood Pressure Mean [Right Arm] Blood Pressure Position Blood Pressure Position [Right Arm] Pulse Oximetry 99 98 98 Oxygen Delivery Method Oxygen Flow Rate Sepsis Recent Fever Within 48 Hours Sepsis New/Unexplained Change in Mental Status Sepsis Action Taken by Nursing 11/06/24 18:00 11/06/24 18:18 11/06/24 18:24 Temperature 36.7 C Temperature Source Oral Pulse Rate 81 78 Pulse Rate [Apical] 81 Pulse Rate from SpO2 Sensor 83 77 Respiratory Rate 20 22 18 Respiratory Effort / Characteristics Non-Labored Spontaneous Respiratory Depth Normal Respiratory Pattern Regular Blood Pressure Blood Pressure [Right Arm] 130/74 Blood Pressure Mean Blood Pressure Mean [Right Arm] 92 Blood Pressure Position Blood Pressure Position [Right Arm] Pulse Oximetry 95 97 96 Oxygen Delivery Method Room Air Oxygen Flow Rate Sepsis Recent Fever Within 48 Hours Sepsis New/Unexplained Change in Mental Status Sepsis Action Taken by Nursing 11/06/24 18:39 11/06/24 18:41 Temperature Temperature Source Pulse Rate 81 Pulse Rate [Apical] 83 Pulse Rate from SpO2 Sensor 81 Respiratory Rate 20 24 Respiratory Effort / Characteristics Non-Labored Spontaneous Respiratory Depth Normal Respiratory Pattern Regular Blood Pressure Blood Pressure [Right Arm] 145/67 H Blood Pressure Mean Blood Pressure Mean [Right Arm] 93 Blood Pressure Position Blood Pressure Position [Right Arm] Lying Pulse Oximetry 97 98 Oxygen Delivery Method Room Air Oxygen Flow Rate Sepsis Recent Fever Within 48 Hours Sepsis New/Unexplained Change in Mental Status Sepsis Action Taken by Nursing Laboratory Data 11/06/24 16:21 11/06/24 16:21 Lab Results 11/06/24 11/06/24 Range/Units 16:21 16:30 WBC 11.94 H (4.8-10.8) K/ul RBC 4.21 L (4.70-6.10) M/uL Hgb 13.6 L (14.0-18.0) g/dl POC Hgb 13.6 L (14.0-18.0) g/dl Hct 39.8 L (42.0-52.0) % POC Hct 40 L (42-52) % MCV 94.5 (80.0-100.0) fL MCH 32.3 (25.0-34.0) pg MCHC 34.2 (32.0-36.0) g/dL RDW Std Deviation 48.5 H (36.4-46.3) fL RDW Coeff of Sonia 14.0 (11.5-14.5) % Plt Count 148 (130-400) K/uL MPV 10.5 (9.4-12.4) fL Immature Gran % (Auto) 0.3 % Neut % (Auto) 82.6 % Lymph % (Auto) 9.0 % [place] % (Auto) 7.3 % Eos % (Auto) 0.5 % Baso % (Auto) 0.3 % Neut # (Auto) 9.86 H (1.40-6.50) K/uL Lymph # (Auto) 1.08 L (1.20-3.40) K/uL [place] # (Auto) 0.87 H (0.11-0.59) K/uL Eos # (Auto) 0.06 (0.00-0.50) K/uL Baso # (Auto) 0.03 (0.00-0.20) K/uL Immature Gran # (Auto) 0.04 (0.01-0.20) K/uL PT 11.2 (9.0-12.0) Seconds INR 1.0 (0.9-1.1) APTT 26 (21-31) Seconds PTT Ratio 1.0 POC Sodium 140 (135-144) mmol/L Sodium 139 (136-145) mmol/L POC Potassium 4.1 (3.3-5.0) mmol/L Potassium 4.2 (3.5-5.1) mmol/L POC Chloride 104 (101-112) mmol/L Chloride 103 (98-107) mmol/L Carbon Dioxide 26 (21-32) mmol/L POC Total CO2 23 L (24-31) mmol/L Anion Gap 10 (3-11) POC Anion Gap 18.0 (16-25) mmol/L POC BUN 21 H (7-18) mg/dl BUN 20 (6-23) mg/dl Creatinine 1.38 (0.6-1.4) mg/dl POC Creatinine 1.5 H (0.6-1.3) mg/dl Est Cr Clr Drug Dosing 59.6 ml/min eGFR 54.33 BUN/Creatinine Ratio 14.5 (10-20) Glucose 92 (70-99(Fasting)) mg/dl POC Glucose (other) 90 (70-99) mg/dl Calcium 9.9 (8.6-10.3) mg/dl POC Ioniz Calcium Daisy 1.07 L (1.12-1.32) mmol/l Total Bilirubin 0.8 (0.2-1.0) mg/dl AST 28 (13-39) U/L ALT 23 (7-52) U/L Alkaline Phosphatase 111 H (34-104) U/L Total Protein 7.6 (6.0-8.3) gm/dl Albumin 4.6 (3.4-5.0) gm/dl Globulin 3.0 (2.5-4.0) gm/dl Albumin/Globulin Ratio 1.5 (0.9-2) Lipase 23 (11-82) U/L Administered Medications Allopurinol (Allopurinol 100 Mg Tab) 100 mg PO BID RADHA Stop: 12/06/24 21:29 Last Admin: 11/06/24 21:37 Dose: 100 mg Documented By: TANIYA Atorvastatin Calcium (Atorvastatin 20 Mg Tab) 20 mg PO HS RADHA Stop: 12/06/24 21:29 Last Admin: 11/06/24 21:37 Dose: 20 mg Documented By: TANIYA Cyclobenzaprine HCl (Cyclobenzaprine Hcl 5 Mg Tab) 5 mg PO TID PRN PRN Reason: Back Pain Stop: 12/06/24 21:14 Last Admin: 11/06/24 21:36 Dose: 5 mg Documented By: TANIYA Methylprednisolone 40 mg/ (Syringe) 0.64 mls @ 1.5 mls/min IV Q8 RADHA Stop: 12/06/24 21:59 Last Admin: 11/06/24 22:19 Dose: 1.5 mls/min Documented By: TANIYA Montelukast Sodium (Montelukast Sodium 10 Mg Tablet) 10 mg PO PM RADHA Stop: 12/06/24 21:29 Last Admin: 11/06/24 21:37 Dose: 10 mg Documented By: TANIYA Morphine Sulfate (Morphine Sulfate 2 Mg/Ml Carp) 2 mg IV Q3H PRN PRN Reason: Pain Stop: 11/20/24 21:14 Last Admin: 11/06/24 22:22 Dose: 2 mg Documented By: TANIYA Pregabalin (Pregabalin 50 Mg Cap) 50 mg PO BID RADHA Stop: 12/06/24 21:29 Last Admin: 11/06/24 21:39 Dose: 50 mg Documented By: TANIYA Tamsulosin HCl (Tamsulosin Hcl 0.4 Mg Cap) 0.4 mg PO BIDM RADHA Stop: 12/06/24 21:29 Last Admin: 11/06/24 21:36 Dose: 0.4 mg Documented By: TANIYA Discontinued Medications Ioversol (Optiray 320 100ml) 90 ml IV ONCE ONE Stop: 11/06/24 16:36 Last Admin: 11/06/24 16:35 Dose: 90 ml Documented By: HYACINTH Ketorolac Tromethamine (Ketorolac Tromethamine 15 Mg/Ml Vial) 10 mg IV NOW ONE Stop: 11/06/24 18:02 Last Admin: 11/06/24 18:37 Dose: 10 mg Documented By: TIN Morphine Sulfate (Morphine Sulfate 2 Mg/Ml Carp) 2 mg IV NOW STA Stop: 11/06/24 16:13 Last Admin: 11/06/24 16:23 Dose: 2 mg Documented By: LENO Morphine Sulfate (Morphine Sulfate 10 Mg/Ml Carp/Vial) 6 mg IV NOW STA Stop: 11/06/24 16:57 Last Admin: 11/06/24 17:02 Dose: 6 mg Documented By: LENO Morphine Sulfate (Morphine Sulfate 2 Mg/Ml Carp) 2 mg IV NOW STA Stop: 11/06/24 18:02 Last Admin: 11/06/24 18:37 Dose: 2 mg Documented By: TIN Ondansetron HCl (Ondansetron Inj 2 Mg/Ml 2 Ml Vial) 4 mg IV NOW STA Stop: 11/06/24 16:13 Last Admin: 11/06/24 16:23 Dose: 4 mg Documented By: LENO Imaging Data Radiologist's Impression: Humerus X-Ray 11/06/24 16:10 Clinical History: Pain. 2 views of the left humerus are submitted for review. Findings: No fracture or dislocation is seen. There is chronic heterotopic ossification adjacent to the medial epicondyle of the humerus. There is mild acromioclavicular and elbow joint osteoarthritis. No other osseous abnormality is identified. There are no radiopaque foreign bodies. Impression: 1. No definite fracture 2. Mild osteoarthritis Electronically signed by Shahram Lee 11-06-2024 4:30 PM Abdomen/Pelvis CT 11/06/24 16:11 CT ABDOMEN and PELVIS with INTRAVENOUS CONTRAST HISTORY: Abdominal pain TECHNIQUE: CT abdomen and pelvis with contrast. IV CONTRAST: 100 mL of OMNIPAQUE 300 ENTERIC CONTRAST: Not Given COMPARISON: None FINDINGS: LIVER: No focal lesion identified. GALLBLADDER/BILIARY: Cholelithiasis without evidence of cholecystitis. No abnormal biliary dilatation. SPLEEN: Unremarkable. PANCREAS: Unremarkable. ADRENALS: Unremarkable. KIDNEYS: Small cortical cysts. 2 mm nonobstructive right renal calculi. No hydronephrosis identified. PERITONEUM/RETROPERITONEUM. No lymphadenopathy by size criteria. No aortic aneurysm. GASTROINTESTINAL: No obstruction. Colonic diverticulosis without evidence of diverticulitis. Small duodenal diverticula. REPRODUCTIVE: Brachytherapy seeds over the prostate. URINARY BLADDER: Unremarkable. ABDOMINAL WALL: Small fat-containing right inguinal hernia and small fat-containing umbilical hernia BONES: No acute findings. IMPRESSION: No evidence of acute trauma to the abdomen or the pelvis. Electronically signed by Dominik Mak 11-06-2024 5:[address] 11/06/24 16:11 CT CERVICAL SPINE WITHOUT CONTRAST: HISTORY: TRAUMA TECHNIQUE: Noncontrast CT examination of the cervical spine is performed. Coronal and sagittal reformats were created. COMPARISON: FINDINGS: CERVICAL SPINE: There is no significant vertebral body height loss. No acute traumatic fracture identified. There is no significant spondylolisthesis. Multilevel degenerative changes characterized by disc osteophyte complex, bilateral facet and uncovertebral hypertrophy resulting and neural foraminal narrowing at multiple levels, worst at mid to lower spine. Visualized soft tissues of neck are unremarkable. IMPRESSION: No acute traumatic fracture of the cervical spine. Multilevel degenerative changes as above Electronically signed by Dominik Mak 11-06-2024 5:[address] 11/06/24 16:11 CT CHEST WITH CONTRAST: HISTORY: Trauma TECHNIQUE: CT of the chest was obtained with intravenous contrast. Coronal and sagittal reformats were created. IV CONTRAST: 100 mL of OMNIPAQUE 300 COMPARISON: None FINDINGS: LOWER NECK: Normal thyroid. LYMPH NODES: A few small nonenlarged lymph nodes in the mediastinum. No lymphadenopathy by size criteria. Calcified lymph nodes are present. CARDIOVASCULAR: Cardiac size is normal. Coronary artery and valvular calcifications are noted. No aortic aneurysm. LUNGS: The trachea and central bronchi are widely patent. No focal confluent infiltrates are seen. 7mm supleural pulmonary nodule in the right lung base (series 13, image 175). PLEURA: There are no pleural effusions. There is no pneumothorax. OSSEOUS STRUCTURES: No acute findings IMPRESSION: No evidence of acute trauma to the thorax. 7mm supleural pulmonary nodule in the right lung base. Follow-up thoracic CT in 3 months would be advised to reassess Electronically signed by Dominik Mak 11-06-2024 5:17 PM Chest X-Ray 11/06/24 16:11 Clinical History: Trauma Technique: A frontal view of the chest a obtained Findings: There are no confluent pulmonary infiltrates. The heart size is within normal limits. No pleural effusion or pneumothorax is seen. There is no definite pulmonary nodule. No fracture is noted. No foreign body is seen Impression: No active disease Electronically signed by Shahram Lee 11-06-2024 4:[address] 11/06/24 16:11 CT HEAD: HISTORY: TRAUMA TECHNIQUE: Noncontrast CT examination of the head is performed. Coronal and sagittal reformats were created. COMPARISON: None FINDINGS: There is no evidence of intracranial hemorrhage, focal mass effect or midline shift. No fluid collection is identified. The ventricular system is midline and symmetric. No evidence of acute major vascular territory infarction. Age-related involutional changes of the brain and chronic white matter ischemic changes. No calvarial fracture is identified. The paranasal sinuses and mastoids are well aerated. IMPRESSION: No acute intracranial process identified. Chronic findings as above Electronically signed by Dominik Mak 11-06-2024 5:[address] 11/06/24 16:11 CT LUMBAR SPINE WITHOUT CONTRAST: HISTORY: TRAUMA TECHNIQUE: Noncontrast CT examination of the lumbar spine is performed. Coronal and sagittal reformats were created. COMPARISON: None FINDINGS: LUMBAR SPINE: There is no significant vertebral body height loss. No acute traumatic fracture identified. There is no significant spondylolisthesis. Usual lumbar lordosis is preserved. Multilevel degenerative changes characterized by disc space loss, broad based disc bulge/herniations with endplate changes of the vertebral bodies with small marginal osteophytes as well as bilateral facet hypertrophy and thickening of the ligamentum flavum resulting in crowding of the subarticular recesses and narrowing of neural foramina worst at L4-S1. IMPRESSION: No acute traumatic fracture of the lumbar spine. Multilevel degenerative changes as above Electronically signed by Dominik Mak 11-06-2024 5:[address] 11/06/24 16:11 CT THORACIC SPINE WITHOUT CONTRAST: HISTORY: TRAUMA TECHNIQUE: Noncontrast CT examination of the thoracic spine is performed. Coronal and sagittal reformats were created. COMPARISON: None. FINDINGS: THORACIC SPINE: There is no significant vertebral body height loss. No acute traumatic fracture identified. There is no significant spondylolisthesis. Usual thoracic kyphosis is preserved. Multilevel degenerative changes characterized by disc space loss with endplate changes of the vertebral bodies with small marginal osteophytes. IMPRESSION: No acute traumatic fracture of the thoracic spine. Multilevel degenerative changes as above Electronically signed by Dominik Mak 11-06-2024 5:27 PM Shoulder X-Ray 11/06/24 18:03 INDICATION: TRAUMA TECHNIQUE: 3 views of the left shoulder were obtained. COMPARISON: None FINDINGS: No displaced acute osseous process is identified. Moderate osteoarthritis of the acromioclavicular and glenohumeral joints. Mildly high riding humeral head with respect to the glenoid may be due to her underlying rotator cuff injury. IMPRESSION: No displaced acute osseous process is identified. Moderate osteoarthritis Mildly high riding humeral head with respect to the glenoid may be due to her underlying rotator cuff injury. Electronically signed by Dominik Mak 11-06-2024 7:13 PM Discharge Plan Visit Data Chief Complaint: Trauma Stated Complaint: LARGE TREE HIT LT ARM AND SIDE ED Provider: Riaz Corral Discharge Problem: Fall, Trauma, Acute shoulder pain, Ambulatory dysfunction Patient Disposition: Admitted As Inpatient Condition: Fair Discharge Instructions Interventions: ED Discharge Assessment Last Done: 11/06/24 21:38 Discharge Problem: Fall Qualifiers: Encounter type: initial encounter Qualified Code(s): W19.XXXA - Unspecified fall, initial encounter Acute shoulder pain Qualifiers: Laterality: left Qualified Code(s): M25.512 - Pain in left shoulder
[2024-11-06] MEDS: MoRPHine SULFATE 2 MG/ML CARP IV STA ×2 (16:23→18:37)
[2024-11-06] MEDS: ONDANSETRON INJ 2 MG/ML 2 ML VIAL IV STA (16:23)
--- NOTE | 2024-11-06 16:29 | XRay Report ---
Clinical History: Trauma Technique: A frontal view of the chest a obtained Findings: There are no confluent pulmonary infiltrates. The heart size is within normal limits. No pleural effusion or pneumothorax is seen. There is no definite pulmonary nodule. No fracture is noted. No foreign body is seen Impression: No active disease Electronically signed by Shahram Lee 11-06-2024 4:28 PM
--- NOTE | 2024-11-06 16:30 | XRay Report ---
Clinical History: Pain. 2 views of the left humerus are submitted for review. Findings: No fracture or dislocation is seen. There is chronic heterotopic ossification adjacent to the medial epicondyle of the humerus. There is mild acromioclavicular and elbow joint osteoarthritis. No other osseous abnormality is identified. There are no radiopaque foreign bodies. Impression: 1. No definite fracture 2. Mild osteoarthritis Electronically signed by Shahram Lee 11-06-2024 4:30 PM
[2024-11-06 16:34] LABS: Hematocrit (blood only) 39.8 % (42.0-52.0); Hemoglobin 13.6 g/dl (14.0-18.0); Immature Granulocytes # (auto) 0.04 K/uL (0.01-0.20); Immature Granulocytes % (auto) 0.3 %; Mean Corpuscular Hemoglobin 32.3 pg (25.0-34.0); Mean Corpuscular Volume 94.5 fL (80.0-100.0); Platelet Count 148 K/uL (130-400); RDW Standard Deviation 48.5 fL (36.4-46.3); Red Blood Count 4.21 M/uL (4.70-6.10); White Blood Count 11.94 K/ul (4.8-10.8)
[2024-11-06] MEDS: OPTIRAY 320 100ml IV ONE (16:35)
[2024-11-06 16:48] LABS: Alanine Aminotransferase 23.0 U/L (7-52); Albumin Globulin Ratio 1.5 (0.9-2); Alkaline Phosphatase 111.0 U/L (34-104); Anion Gap 10.0 (3-11); Bilirubin,Total 0.8 mg/dl (0.2-1.0); Blood Urea Nitrogen 20.0 mg/dl (6-23); Calcium 9.9 mg/dl (8.6-10.3); Carbon Dioxide 26.0 mmol/L (21-32); Chloride 103.0 mmol/L (98-107); Creatinine Clr Calc Pharmacy 59.6 ml/min; Globulin 3.0 gm/dl (2.5-4.0); Glucose 92.0 mg/dl (70-99(Fasting)); Lipase 23.0 U/L (11-82); Potassium 4.2 mmol/L (3.5-5.1); Sodium 139.0 mmol/L (136-145); Total Protein 7.6 gm/dl (6.0-8.3)
[2024-11-06 17:00] LABS: INR 1.0 (0.9-1.1); Partial Thromboplastin Time 26 Seconds (21-31); Prothrombin Time 11.2 Seconds (9.0-12.0)
[2024-11-06] MEDS: MoRPHine SULFATE 10 MG/ML CARP/VIAL IV STA (17:02)
--- NOTE | 2024-11-06 17:10 | CT Scan Report ---
CT HEAD: HISTORY: TRAUMA TECHNIQUE: Noncontrast CT examination of the head is performed. Coronal and sagittal reformats were created. COMPARISON: None FINDINGS: There is no evidence of intracranial hemorrhage, focal mass effect or midline shift. No fluid collection is identified. The ventricular system is midline and symmetric. No evidence of acute major vascular territory infarction. Age-related involutional changes of the brain and chronic white matter ischemic changes. No calvarial fracture is identified. The paranasal sinuses and mastoids are well aerated. IMPRESSION: No acute intracranial process identified. Chronic findings as above Electronically signed by Dominik Mak 11-06-2024 5:10 PM
--- NOTE | 2024-11-06 17:18 | CT Scan Report ---
CT CHEST WITH CONTRAST: HISTORY: Trauma TECHNIQUE: CT of the chest was obtained with intravenous contrast. Coronal and sagittal reformats were created. IV CONTRAST: 100 mL of OMNIPAQUE 300 COMPARISON: None FINDINGS: LOWER NECK: Normal thyroid. LYMPH NODES: A few small nonenlarged lymph nodes in the mediastinum. No lymphadenopathy by size criteria. Calcified lymph nodes are present. CARDIOVASCULAR: Cardiac size is normal. Coronary artery and valvular calcifications are noted. No aortic aneurysm. LUNGS: The trachea and central bronchi are widely patent. No focal confluent infiltrates are seen. 7mm supleural pulmonary nodule in the right lung base (series 13, image 175). PLEURA: There are no pleural effusions. There is no pneumothorax. OSSEOUS STRUCTURES: No acute findings IMPRESSION: No evidence of acute trauma to the thorax. 7mm supleural pulmonary nodule in the right lung base. Follow-up thoracic CT in 3 months would be advised to reassess Electronically signed by Dominik Mak 11-06-2024 5:17 PM
--- NOTE | 2024-11-06 17:28 | CT Scan Report ---
CT THORACIC SPINE WITHOUT CONTRAST: HISTORY: TRAUMA TECHNIQUE: Noncontrast CT examination of the thoracic spine is performed. Coronal and sagittal reformats were created. COMPARISON: None. FINDINGS: THORACIC SPINE: There is no significant vertebral body height loss. No acute traumatic fracture identified. There is no significant spondylolisthesis. Usual thoracic kyphosis is preserved. Multilevel degenerative changes characterized by disc space loss with endplate changes of the vertebral bodies with small marginal osteophytes. IMPRESSION: No acute traumatic fracture of the thoracic spine. Multilevel degenerative changes as above Electronically signed by Dominik Mak 11-06-2024 5:27 PM
--- NOTE | 2024-11-06 17:29 | CT Scan Report ---
CT CERVICAL SPINE WITHOUT CONTRAST: HISTORY: TRAUMA TECHNIQUE: Noncontrast CT examination of the cervical spine is performed. Coronal and sagittal reformats were created. COMPARISON: FINDINGS: CERVICAL SPINE: There is no significant vertebral body height loss. No acute traumatic fracture identified. There is no significant spondylolisthesis. Multilevel degenerative changes characterized by disc osteophyte complex, bilateral facet and uncovertebral hypertrophy resulting and neural foraminal narrowing at multiple levels, worst at mid to lower spine. Visualized soft tissues of neck are unremarkable. IMPRESSION: No acute traumatic fracture of the cervical spine. Multilevel degenerative changes as above Electronically signed by Dominik Mak 11-06-2024 5:27 PM
--- NOTE | 2024-11-06 17:37 | CT Scan Report ---
CT LUMBAR SPINE WITHOUT CONTRAST: HISTORY: TRAUMA TECHNIQUE: Noncontrast CT examination of the lumbar spine is performed. Coronal and sagittal reformats were created. COMPARISON: None FINDINGS: LUMBAR SPINE: There is no significant vertebral body height loss. No acute traumatic fracture identified. There is no significant spondylolisthesis. Usual lumbar lordosis is preserved. Multilevel degenerative changes characterized by disc space loss, broad based disc bulge/herniations with endplate changes of the vertebral bodies with small marginal osteophytes as well as bilateral facet hypertrophy and thickening of the ligamentum flavum resulting in crowding of the subarticular recesses and narrowing of neural foramina worst at L4-S1. IMPRESSION: No acute traumatic fracture of the lumbar spine. Multilevel degenerative changes as above Electronically signed by Dominik Mak 11-06-2024 5:37 PM
--- NOTE | 2024-11-06 17:37 | CT Scan Report ---
CT ABDOMEN and PELVIS with INTRAVENOUS CONTRAST HISTORY: Abdominal pain TECHNIQUE: CT abdomen and pelvis with contrast. IV CONTRAST: 100 mL of OMNIPAQUE 300 ENTERIC CONTRAST: Not Given COMPARISON: None FINDINGS: LIVER: No focal lesion identified. GALLBLADDER/BILIARY: Cholelithiasis without evidence of cholecystitis. No abnormal biliary dilatation. SPLEEN: Unremarkable. PANCREAS: Unremarkable. ADRENALS: Unremarkable. KIDNEYS: Small cortical cysts. 2 mm nonobstructive right renal calculi. No hydronephrosis identified. PERITONEUM/RETROPERITONEUM. No lymphadenopathy by size criteria. No aortic aneurysm. GASTROINTESTINAL: No obstruction. Colonic diverticulosis without evidence of diverticulitis. Small duodenal diverticula. REPRODUCTIVE: Brachytherapy seeds over the prostate. URINARY BLADDER: Unremarkable. ABDOMINAL WALL: Small fat-containing right inguinal hernia and small fat-containing umbilical hernia BONES: No acute findings. IMPRESSION: No evidence of acute trauma to the abdomen or the pelvis. Electronically signed by Dominik Mak 11-06-2024 5:37 PM
[2024-11-06] MEDS: KETOROLAC TROMETHAMINE 15 MG/ML VIAL IV ONE (18:37)
--- NOTE | 2024-11-06 18:50 | History & Physical Report ---
Date of Service November 06, 2024 Assessment & Plan (1) Trauma: Plan: The patient experienced blunt force trauma when a tree trunk that was on the ground swung up and struck him while he was cutting it. It knocked him backwards and he may have lost consciousness but there was no apparent head trauma. He does have limited range of motion of the left arm and left shoulder with muscle soreness from the impact but fortunately there are no fractures seen on multiple x-rays and CT scans. Symptomatic care for now with pain management and heating pad. Observation (2) Low back pain: Plan: Aggravated by trauma. He now has ambulatory dysfunction. Pain control measures and heating pad ordered. (3) Hypertension: Plan: Stable. Continue current medical management (4) Gout: Plan: Stable. Continue allopurinol (5) Asthma: Plan: Stable. Continue Spiriva Plan Observation this evening with pain management and heating pad. Hopeful discharge to home tomorrow, November 07 History of Present Illness Chief Complaint: Struck by a tree trunk, possible loss of consciousness, aggravation of chronic low back pain Primary Care Provider: Anisha Gibson 74-year-old white male with known lumbar stenosis who was cutting a downed tree when the trunk swung up and struck him knocking him backwards. He may have lost consciousness for a short period of time but denies any head trauma. He now has aggravation of his chronic low back pain and ambulatory dysfunction. He is also sore on his left arm and left shoulder from being struck by the tree trunk. Multiple x-rays and CT scans were obtained which were negative for fracture. He is placed in observation for further evaluation and treatment. Allergies Allergy/AdvReac Type Severity Reaction Status Date / Time oxycodone AdvReac Unknown Hallucinati Verified 07/21/24 08:16 Home Medications Medication Instructions Recorded Confirmed Type allopurinol 100 mg tablet 100 mg PO BID 06/13/19 11/06/24 History atorvastatin 20 mg tablet 20 mg PO HS 06/13/19 11/06/24 History fluoxetine 20 mg tablet 10 mg PO QAM 06/13/19 11/06/24 History tamsulosin 0.4 mg capsule 0.4 mg PO BID #60 caps 09/22/21 11/06/24 Rx losartan 25 mg tablet 25 mg PO QAM 02/15/23 11/06/24 History cyclobenzaprine 5 mg tablet 5 mg PO TID PRN Back Pain 08/03/23 11/06/24 History montelukast 10 mg tablet 10 mg PO PM 07/13/24 11/06/24 History pregabalin 50 mg capsule (Lyrica) 50 mg PO BID #180 caps 10/20/24 11/06/24 Rx Past Med/Surg History Problem List (Updated 11/06/24 @ 18:54 by Michael Gonzalez MD) Low back pain Trauma (Acute) Fall (Acute) Lumbar spinal stenosis Urinary urgency Headache Vertigo (Acute) Hypertension (Acute) Positive Lyme disease serology (Acute) Stroke-like symptoms (Acute) COVID-19 (Acute) Sensorineural hearing loss (SNHL) of both ears Encounter for pre-operative examination History of prostate cancer (Chronic) RADIATION MAR 2020-APR 2020 Hypertrophy of both inferior nasal turbinates Chronic sinusitis, unspecified Nasal polyposis Seasonal allergies Stroke Malignant neoplasm of prostate (Chronic 12/14/19) Bronchitis Asthma Gout Elevated PSA Medical History (Updated 11/06/24 @ 18:54 by Michael Gonzalez MD) History of asthma remote hx Chronic sinusitis no known current infection. Arthritis Bulging lumbar disc Lumbar spinal stenosis Anxiety History of migraine headaches History of Lyme disease History of prostate cancer dx 2018 , hx radiation. History of COVID-21 June 2022 > not hospitalized Vertigo admitted to [facility] for this on 02/15/23. Minor occurences since with vertigo on occ/ no recent. Hypertension Lumbar radiculopathy Stroke no official dx of/ has had Brain MRI's in hx: "indicated might have been something, probably past stroke, never sure , never confirmed" per pt. Brain MRI [place] approx 2018 after back sx couldn't use arm. determined to be positional / disc issues. History of anesthesia reaction WITH APPENDECTOMY SURGERY WAS TOLD WOKE UP VIOLENT, DOES NOT REMEMBER Spinal stenosis Neuropathy BOTH FEET History of gout Sleep apnea CPAP Hypercholesterolemia Surgical History History of endoscopy upper History of right cataract surgery History of arthroscopy of left knee Hx of left cataract extraction S/P epidural steroid injection History of endoscopic sinus surgery History of appendectomy History of colonoscopy History of carpal tunnel release of both wrists H/O elbow surgery X2 History of back surgery X2 > lumbar Family History Brother No problems noted. Other No family history of adverse response to anesthesia No family history of bleeding disorder Social History Smoking Status: Former smoker Tobacco Type: Cigarettes Age Started Using Tobacco: 22; Age Quit Using Tobacco: 42; packs per day: 1.5; Cigarettes Per Day: 30; Second Hand Exposure: No; Do You Dip or Chew Tobacco: No; Hx Alcohol Use: Yes (hx social , none current) Alcohol type: beer, wine and hard liquor Alcohol Intake Frequency: 2-3 x/Week Hx Substance Use: No Preferred Language: Wolof Communication Ability: Effective Visual Impairment: Partially Limited Hearing Ability: Hard of Hearing Liner Checker Required: No Beliefs That Will Affect Care: None marital status: Current Living Situation: Spouse current occupational status: retired current occupation: retired as [employer] How many Children do You have: 1 Feels Safe at Home: Yes Childhood Exposure to Second-Hand Smoke: Yes caffeine: Yes (coffee once per day) during the past year weight has: remained stable Dental Care, Regularly: Yes Physical Activity Frequency: 1-2 Times per Week Seatbelt Use: always Sunscreen Use: No Assistive Devices: CPAP Review of Systems 2 Review of Systems: Constitutionalno fever or chills ENTno blurred vision, no double vision, no epistaxis, no sore throat Respiratoryno cough, no wheezing, no shortness of breath Cardiacno palpitations, no chest pain, no syncope Jacqueline nausea, vomiting, diarrhea, melena, hematochezia GUno urinary retention, no urinary incontinence, no dysuria, no hematuria Musculoskeletalleft arm, left shoulder, lumbar discomfort . No isolated joint pain, no muscle tenderness Skinno bruising, no rashes, no pruritus Neurono isolated weakness, no paresthesia, no weakness Psychno depression, no anxiety Physical Exam 2 Physical Exam: General-alert and oriented x3, no fever, no chills HEENT-head atraumatic and normocephalic, pupils equal and reactive to light, extraocular muscles intact Neck-no lymphadenopathy or thyromegaly, trachea midline Chest-clear to auscultation. No rales, wheezing or rhonchi Cardiac-regular rate and rhythm, normal S1 and S2 Abdomen-normal bowel sounds, no hepatosplenomegaly Extremities-no cyanosis, clubbing, or edema. Limited range of motion left arm with diffuse soreness to touch involving left arm and musculature of the left lateral chest wall Neuro-cranial nerves II through XII intact, motor and sensory function within normal limits, strength symmetrical, no focal deficits Psych-normal affect, normal mood Results & Data Results & Data Vital Signs (Past 12 Hours) Vital Signs Temp Pulse Pulse Resp BP BP Pulse Ox 11/06/24 18:41 83 24 145/67 H 98 11/06/24 18:00 36.7 C 81 20 130/74 95 11/06/24 17:00 36.7 C 78 19 145/78 H 100 11/06/24 16:49 75 11/06/24 16:11 100 11/06/24 16:06 100 11/06/24 16:06 36.7 C 75 23 158/89 H 100 11/06/24 16:06 36.7 C 75 23 158/89 H 100 11/06/24 16:01 36.7 C 85 18 138/86 99 O2 Del Method O2 Flow Rate 11/06/24 18:41 Room Air 11/06/24 18:00 Room Air 11/06/24 17:00 Room Air 11/06/24 16:49 11/06/24 16:11 Room Air 11/06/24 16:06 Room Air 11/06/24 16:06 Room Air 11/06/24 16:06 Room Air 0 11/06/24 16:01 Room Air Laboratory Results 11/06/24 16:21 11/06/24 16:21 Code Status & VTE Plan Code Status Full code PG Care Time/CCT Total # of Minutes Spent Total Time Spent with Patient: Total time spent is greater than 50% in coordination of care (as documented) at patient's floor/unit and/or counseling patient: Coding Level of Care Code 04588 INT INP/OBS CARE 3/75MIN Diagnoses Trauma T14.90XA Low back pain M54.50 Hypertension I10 Gout M10.9 Asthma J45.909
--- NOTE | 2024-11-06 19:13 | XRay Report ---
INDICATION: TRAUMA TECHNIQUE: 3 views of the left shoulder were obtained. COMPARISON: None FINDINGS: No displaced acute osseous process is identified. Moderate osteoarthritis of the acromioclavicular and glenohumeral joints. Mildly high riding humeral head with respect to the glenoid may be due to her underlying rotator cuff injury. IMPRESSION: No displaced acute osseous process is identified. Moderate osteoarthritis Mildly high riding humeral head with respect to the glenoid may be due to her underlying rotator cuff injury. Electronically signed by Dominik Mak 11-06-2024 7:13 PM
[2024-11-06] MEDS ORDERED: ONDANSETRON INJ 2 MG/ML 2 ML VIAL IV PRN (21:15)
[2024-11-06] MEDS ORDERED: methylPREDNISolone 10 mg/mL (For Ped Dose < 7mg) IV SCH (21:15)
[2024-11-06] MEDS: CYCLOBENZAPRINE HCL 5 MG TAB PO PRN (21:36)
[2024-11-06] MEDS: TAMSULOSIN HCL 0.4 MG CAP PO SCH (21:36)
[2024-11-06] MEDS: ATORVASTATIN 20 MG TAB PO SCH (21:37)
[2024-11-06] MEDS: MONTELUKAST SODIUM 10 MG TABLET PO SCH (21:37)
[2024-11-06] MEDS: PREGABALIN 50 MG CAP PO SCH (21:39)
[2024-11-06] MEDS: MoRPHine SULFATE 2 MG/ML CARP IV PRN (22:22)
[2024-11-06 23:41] VITALS: O2SAT 94
[2024-11-07 06:23] LABS: Appearance Urine Clear (Clear); Glucose Urine UA Negative (Negative)
[2024-11-07 07:04] VITALS: BP 119/68; RESP 15; TEMP 97.7
[2024-11-07] MEDS: LOSARTAN POTASSIUM 25 MG TAB PO SCH (07:24)
--- NOTE | 2024-11-07 08:34 | Electrocardiogram Report ---
Test Reason : Blood Pressure : */* mmHG Vent. Rate : 67 BPM Atrial Rate : 67 BPM P-R Int : 134 ms QRS Dur : 90 ms QT Int : 426 ms P-R-T Axes : -18 -9 -18 degrees QTcB Int : 450 ms Normal sinus rhythm possible Inferior infarct , age undetermined Abnormal ECG When compared with ECG of 15-Feb-2023 08:45, T wave inversion now evident in Inferior leads Nonspecific T wave abnormality no longer evident in Lateral leads Confirmed by Severo Patton ([id number]) on 11/07/2024 8:34:03 AM Referred By: REFERRED SELF Confirmed By: Severo Patton
--- NOTE | 2024-11-07 10:54 | Discharge Summary ---
Discharge Summary Date of Service November 07, 2024 Principal Dx & Hospital Course #1 = Principal Diagnosis (1) Trauma: The patient experienced blunt force trauma when a tree trunk that was on the ground swung up and struck him while he was cutting it. It knocked him backwards and he may have lost consciousness but there was no apparent head trauma. He does have limited range of motion of the left arm and left shoulder with muscle soreness from the impact but fortunately there are no fractures seen on multiple x-rays and CT scans. Symptomatic care while hospitalized with pain management and heating pad. Home on Medrol 4 mg Dosepak and as needed oxycodone (2) Low back pain: Aggravated by trauma. He presented with ambulatory dysfunction. Pain control measures and heating pad ordered while hospitalized. He continues with left- sided soreness but is now able to ambulate.. (3) Hypertension: Stable. Continue current medical management (4) Gout: Stable. Continue allopurinol (5) Asthma: Stable. Continue Spiriva Plan Home today, November 07 Admission HPI Per Admitting Provider 74-year-old white male with known lumbar stenosis who was cutting a downed tree when the trunk swung up and struck him knocking him backwards. He may have lost consciousness for a short period of time but denies any head trauma. He now has aggravation of his chronic low back pain and ambulatory dysfunction. He is also sore on his left arm and left shoulder from being struck by the tree trunk. Multiple x-rays and CT scans were obtained which were negative for fracture. He is placed in observation for further evaluation and treatment. Discharge Exam General-alert and oriented x3, no fever, no chills HEENT-head atraumatic and normocephalic, pupils equal and reactive to light, extraocular muscles intact Neck-no lymphadenopathy or thyromegaly, trachea midline Chest-clear to auscultation. No rales, wheezing or rhonchi Cardiac-regular rate and rhythm, normal S1 and S2 Abdomen-normal bowel sounds, no hepatosplenomegaly Extremities-no cyanosis, clubbing, or edema. Limited range of motion left arm with diffuse soreness to touch involving left arm and musculature of the left lateral chest wall Neuro-cranial nerves II through XII intact, motor and sensory function within normal limits, strength symmetrical, no focal deficits Psych-normal affect, normal mood Discharge Plan Discharge Items Patient Disposition: Home - Self-Care Reason For Visit: BACK PAIN Discharge Diagnosis: Blunt force trauma, exacerbation chronic low back pain, ambulatory dysfunction Condition on Discharge: Fair Activity: As commented below Activity Comment: As tolerated Non-emergency contact: Primary Care Provider Call non-emergency contact if: you have any medication questions and your symptoms worsen Follow-up/Referrals: Anisha Arreaga PA-C [Primary Care Provider] - Diet: Regular Addtl Attending Provider Instructions: Take Medrol Dosepak as directed. Use Oxy IR as needed for back pain. A prescription for Oxy IR has been sent to your pharmacy Pending Studies at Discharge: No Stand-Alone Forms: [employer], Smoking Cessation Medications and DC Order Prescriptions: New methylprednisolone 4 mg tablets,dose pack See Rx Instructions .ROUTE .COMPLEX Qty: 21 0RF Rx Instructions: 4 mg orally as directed oxycodone 5 mg tablet 5 mg PO Q6H PRN (Reason: pain) Qty: 10 0RF Continued cyclobenzaprine 5 mg tablet 5 mg PO TID PRN (Reason: Back Pain) montelukast 10 mg tablet 10 mg PO PM tamsulosin 0.4 mg capsule 0.4 mg PO BID Qty: 60 5RF Rx Instructions: Twice a day with food. pregabalin [Lyrica] 50 mg capsule 50 mg PO BID Qty: 180 1RF atorvastatin 20 mg Tablet 20 mg PO HS allopurinol 100 mg Tablet 100 mg PO BID fluoxetine 20 mg Tablet 10 mg PO QAM losartan 25 mg tablet 25 mg PO QAM Discharge Orders: Discharge Order (Routine); Ordered 11/07/24 Ordered By: Michael Gonzalez Admission Data Admit Date/Time: 11/06/24 18:42 Attending Provider: Michael Gonzalez Admit Provider: Michael Gonzalez Primary Care Provider: Anisha Arreaga Other Providers: Michael Gonzalez Hospital Stay Data Consultations 11/06/24 18:09 ED Decision to Admit Stat Diagnostic Imagining Performed 11/06/24 16:11 CT abd pelvis IV con only Stat CT cervical spine wo con Stat CT chest diagnostic w con Stat CT head/brain wo con Stat CT lumbar spine w con Stat CT thoracic spine w con Stat Pending Results Patient Have Any Pending Studies at Discharge: No Discharge Instructions Given to Patient (Per Discharging Provider) Take Medrol Dosepak as directed. Use Oxy IR as needed for back pain. A prescription for Oxy IR has been sent to your pharmacy Total Time Total Time Spent Total Time Spent (In Minutes): 45-minute Coding Level of Care Code 32278 INP/OBS DISCH >30 MIN Diagnoses Trauma T14.90XA Low back pain M54.50 Hypertension I10 Gout M10.9 Asthma J45.909
[2024-11-07 10:59] VITALS: PULSE 71
== END 2024-11-07 13:27 | disposition home or self-care (01) ==
LOC: SUATTDRO → 3W 15:57 → ED 15:57 → 3W 21:19

== ENCOUNTER 2025-01-13 06:31 | Observation (INO) ==
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
[2025-01-13 07:28] LABS: Hematocrit (blood only) 42.9 % (42.0-52.0); Hemoglobin 14.7 g/dl (14.0-18.0); Immature Granulocytes # (auto) 0.05 K/uL (0.01-0.20); Immature Granulocytes % (auto) 0.5 %; Mean Corpuscular Hemoglobin 31.5 pg (25.0-34.0); Mean Corpuscular Volume 92.1 fL (80.0-100.0); Platelet Count 150 K/uL (130-400); RDW Standard Deviation 46.4 fL (36.4-46.3); Red Blood Count 4.66 M/uL (4.70-6.10); White Blood Count 10.77 K/ul (4.8-10.8)
[2025-01-13] MEDS: MoRPHine SULFATE 4 MG/ML 1 ML CARP\\VIAL IV STA (07:28)
[2025-01-13] MEDS: ONDANSETRON INJ 2 MG/ML 2 ML VIAL IV STA ×2 (07:28→10:17)
[2025-01-13] MEDS: SODIUM CHLORIDE 0.9% 1,000 ML IV STA (07:29)
[2025-01-13 07:33] LABS: Appearance Urine Clear (Clear); Glucose Urine UA Negative (Negative)
[2025-01-13 07:39] LABS: Alanine Aminotransferase 25.0 U/L (7-52); Albumin Globulin Ratio 1.7 (0.9-2); Albumin Level 4.8 gm/dl (3.4-5.0); Alkaline Phosphatase 98.0 U/L (34-104); Anion Gap 10.0 (3-11); Bilirubin,Total 0.8 mg/dl (0.2-1.0); Blood Urea Nitrogen 13.0 mg/dl (6-23); Calcium 10.0 mg/dl (8.6-10.3); Carbon Dioxide 25.0 mmol/L (21-32); Chloride 104.0 mmol/L (98-107); Creatinine Clr Calc Pharmacy 74.8 ml/min; Globulin 2.8 gm/dl (2.5-4.0); Glucose 93.0 mg/dl (70-99(Fasting)); Lipase 16.0 U/L (11-82); Potassium 4.0 mmol/L (3.5-5.1); Sodium 139.0 mmol/L (136-145); Total Protein 7.6 gm/dl (6.0-8.3)
[2025-01-13] MEDS: OPTIRAY 320 100ml IV ONE (07:46)
--- NOTE | 2025-01-13 08:22 | CT Scan Report ---
Clinical History: Abdominal pain and nausea Technique: Axial computed tomography images were obtained of the abdomen and pelvis after the administration of intravenous contrast. Comparison is made to the prior CT dated 11/06/2024. Findings: The liver is overall of normal size, attenuation, and contour with no sign of cirrhosis or significant fatty infiltration. No liver mass lesion is seen. The portal vein is patent. A gallstone is again seen. The gallbladder is mildly distended. There is no appreciable gallbladder wall thickening or adjacent inflammatory change. No bile duct dilatation is noted. The spleen is of normal size. No focal splenic lesion is evident. The pancreas appears normal with no sign of acute or chronic pancreatitis and no mass lesion noted. The pancreatic duct is of normal caliber. The adrenal glands appear unremarkable. There are 2 small right renal calculi, each measuring approximately 3 mm. There is no hydronephrosis or perinephric stranding. No renal mass lesion is identified. There is a 1.2 cm left renal cyst and there is a 9 mm right renal cyst The aorta is of normal caliber. No abdominal adenopathy is seen. There is a small umbilical hernia containing only fat The stomach appears normal. There is no sign of small bowel obstruction. There is diverticulosis without definite diverticulitis. There is no sign of appendicitis. No free intraperitoneal fluid or air is identified. No distal ureteral or bladder calculi are seen. No bladder mass lesion is evident. The iliac arteries are of normal caliber. No pelvic adenopathy is noted. There is a small right inguinal hernia containing only fat. There are metallic foci within the prostate The lungs bases appear clear. Lumbar degenerative disc disease is seen. There is an unchanged L4 compression fracture. No focal osseous lesion is seen Impression: 1. Cholelithiasis without definite acute cholecystitis 2. Bilateral renal cysts 3. Diverticulosis without definite diverticulitis 4. Small right inguinal hernia containing only fat ACT 112: Positive. There are findings on this exam that require communication between the performing entity and the patient following Patient Test Result Information Act ([place] ACT 112) guidelines. Electronically signed by Shahram Lee 01-13-2025 08:22 AM
--- NOTE | 2025-01-13 09:32 | Ultrasound Report ---
Clinical history: Upper abdominal pain Technique: Sonography was performed of the right upper quadrant of the abdomen Findings: There is mild fatty infiltration of the liver, with suspected focal sparing of fatty infiltration adjacent to the romeo hepatis. No definite liver mass is seen A gallstone is present in the gallbladder neck. The gallbladder is distended with some adjacent fluid. Overlying tenderness was detected. The gallbladder wall is mildly thickened at 3.5 mm There is no intrahepatic or extrahepatic bile duct dilatation. The common bile duct measures 5 mm The right kidney measures 12.1 cm in length. There is no hydronephrosis. No definite renal calculus or mass is seen. There is a 1.3 cm right renal cyst The visualized pancreas, aorta, and IVC appear unremarkable. No ascites is seen Impression: 1. Acute cholecystitis 2. Mild fatty infiltration of the liver 3. Small right renal cyst Electronically signed by Shahram Lee 01-13-2025 09:32 AM
[2025-01-13] MEDS: SODIUM CHLORIDE 0.9% 500 ML IV ONE (10:18)
[2025-01-13] MEDS: cefTRIAXone SODIUM 2,000 MG/50 ML BAG IV STA (10:18)
[2025-01-13] MEDS: MoRPHine SULFATE 10 MG/ML CARP/VIAL IV STA (10:18)
--- NOTE | 2025-01-13 10:19 | History & Physical Report ---
Date of Service January 13, 2025 Assessment & Plan (1) Acute cholecystitis: (2) Asthma: (3) Hypertension: Plan Cooper is a pleasant 74-year-old man with past medical history of hypertension, hypercholesterolemia, asthma, gout, anxiety, arthritis, lumbar radiculopathy, and history of prostate cancer. He presented with acute onset of abdominal pain that began the night prior to admission. His imaging revealed acute cholecystitis on presentation. He is being observed overnight for management of such. #Acute cholecystitis confirmed on gallbladder ultrasound on presentation - General surgery consulted - going to the OR for lap shanna with Dr. Johns - Was given a dose of ceftriaxone and metronidazole in the ED for empiric coverage. No further antibiotics are likely needed since source control will be obtained with removal of his gallbladder - Preop baseline EKG ordered on admission, pending - Keep NPO with surgery planned for this morning 01/13 - Can start clear liquid diet postoperatively - Pain control with Tylenol for mild pain, morphine 2-4 mg IV Q4h PRN mod-severe pain #Asthma | KRISTINE - Continue montelukast 10 mg daily - CPAP HS - Encourage incentive spirometer use Q1HWA postoperatively #Hypertensionno longer on antihypertensive regimen after weight loss - Blood pressure elevated on admission likely due to acute pain - Anticipate normalization of BP with improvement in pain control - continue to monitor #Hypercholesterolemiacontinue atorvastatin 20 mg HS #Goutcontinue allopurinol 100 mg twice daily #Anxietycontinue fluoxetine 10 mg daily #Neuropathy | Sciaticacontinue Lyrica 50 mg twice daily #Chronic back paincontinue home cyclobenzaprine 5 mg 3 times daily as needed #History of prostate cancercontinue tamsulosin 0.4 mg twice daily VTE PPx: Low risk. Anticipate short length of stay. SCDs Dispo: Observation on med/surg Reviewed prior records Updated at bedside on admission History of Present Illness Chief Complaint: Abdominal pain Primary Care Provider: Anisha Gibson Gamboa is a pleasant 74-year-old man with past medical history of hypertension, asthma, gout, arthritis, anxiety, lumbar radiculopathy, hypercholesterolemia, and history of prostate cancer. He presented from home with acute abdominal pain. At the time of my exam, the patient was lying in bed in no acute distress with his present at bedside. He states last night 01/12/25 around 2300 he developed acute onset of lower abdominal pain and felt a burning sensation in his upper abdomen. This kept him awake throughout the night. He attempted to have a bowel movement and took Pepto-Bismol, both without any symptom relief. His pain initially started as colicky pain, but now is constant. Pain is now most prominent in his RUQ though has diffuse pain throughout his abdomen. He denies any recent fever, chills. Denies recent nausea, vomiting, diarrhea. He has chronic back pain but denies exacerbation of back pain or right shoulder pain. Denies chest pain, shortness of breath, urinary symptoms. He has felt constipated x 3 days and notes that he does not typically have any issues with his bowels. Denies BRBPR or dark stools. He denies any prior similar episodes. He denies any food intolerance, no issues with fatty foods recently. No history of gallstones. Patient reports that he did not take his regular morning medications today. His only recent medication change was a decrease in his allopurinol to 100 mg twice daily. He previously took medications for hypertension, however after losing about 40 pounds, he no longer takes any antihypertensives. He does use a CPAP at bedtime; no daytime oxygen at baseline. He denies an allergy to oxycodone, noting he had some withdrawal symptoms when coming off of oxycodone after being on it for 1 month. He denies prior history of a stroke - he explains there was concern of a stroke on head imaging about 4 years ago but after further workup this was ruled out. Vitals on admission significant for mildly elevated BP at 149/69 (acceptable with acute pain); vitals otherwise stable. Labs on admission are overall unremarkable. No leukocytosis but mildly elevated neutrophil count. Hemoglobin and platelets stable. Electrolytes WNL. Renal function WNL. Liver enzymes WNL. Troponin negative at 7.3. UA negative. CT A/P on admission reveals cholelithiasis without definite acute cholecystitis, bilateral renal cysts, diverticulosis without definite diverticulitis, small right inguinal hernia containing only fat. Gallbladder ultrasound reveals acute cholecystitis with a gallstone present in the gallbladder neck, gallbladder is distended with some adjacent fluid, gallbladder wall mildly thickened at 3.5 mm, mild fatty infiltration of the liver. CBD 5 mmno intrahepatic or extrahepatic bile duct dilation. We discussed code status, patient wishes to be a full code. Allergies Allergy/AdvReac Type Severity Reaction Status Date / Time oxycodone AdvReac Unknown Hallucinati Verified 01/13/25 09:40 ng Home Medications Medication Instructions Recorded Confirmed Type allopurinol 100 mg tablet 100 mg PO BID 06/13/19 01/13/25 History atorvastatin 20 mg tablet 20 mg PO HS 06/13/19 01/13/25 History fluoxetine 20 mg tablet 10 mg PO QAM 06/13/19 01/13/25 History tamsulosin 0.4 mg capsule 0.4 mg PO BID #60 caps 09/22/21 01/13/25 Rx cyclobenzaprine 5 mg tablet 5 mg PO TID PRN Back Pain 08/03/23 01/13/25 History montelukast 10 mg tablet 10 mg PO QAM 07/13/24 01/13/25 History pregabalin 50 mg capsule (Lyrica) 50 mg PO BID #180 caps 10/20/24 01/13/25 Rx Past Med/Surg History Problem List (Updated 01/13/25 @ 11:29 by Jf Kerr MD) Nausea (Acute) Abdominal pain (Acute) Acute cholecystitis (Acute) Acute cholecystitis Ambulatory dysfunction (Acute) Acute shoulder pain (Acute) Trauma (Acute) Fall (Acute) Lumbar spinal stenosis Urinary urgency Headache Vertigo (Acute) Positive Lyme disease serology (Acute) Stroke-like symptoms (Acute) COVID-19 (Acute) Sensorineural hearing loss (SNHL) of both ears Encounter for pre-operative examination History of prostate cancer (Chronic) RADIATION MAR 2020-APR 2020 Chronic sinusitis, unspecified Nasal polyposis Seasonal allergies Stroke Malignant neoplasm of prostate (Chronic 12/14/19) Bronchitis Elevated PSA Medical History Hypertrophy of both inferior nasal turbinates History of asthma remote hx Chronic sinusitis no known current infection. Arthritis Bulging lumbar disc Lumbar spinal stenosis Anxiety History of migraine headaches History of Lyme disease History of prostate cancer dx 2018 , hx radiation. History of COVID-21 June 2022 > not hospitalized Vertigo admitted to [facility] for this on 02/15/23. Minor occurences since with vertigo on occ/ no recent. Hypertension Lumbar radiculopathy Stroke no official dx of/ has had Brain MRI's in hx: "indicated might have been something, probably past stroke, never sure , never confirmed" per pt. Brain MRI [place] approx 2018 after back sx couldn't use arm. determined to be positional / disc issues. History of anesthesia reaction WITH APPENDECTOMY SURGERY WAS TOLD WOKE UP VIOLENT, DOES NOT REMEMBER Spinal stenosis Neuropathy BOTH FEET History of gout Sleep apnea CPAP Hypercholesterolemia Surgical History History of endoscopy upper History of right cataract surgery History of arthroscopy of left knee Hx of left cataract extraction S/P epidural steroid injection History of endoscopic sinus surgery History of appendectomy History of colonoscopy History of carpal tunnel release of both wrists H/O elbow surgery X2 History of back surgery X2 > lumbar Family History Brother No problems noted. Other No family history of adverse response to anesthesia No family history of bleeding disorder Social History Smoking Status: Former smoker Tobacco Type: Cigarettes Age Started Using Tobacco: 22; Age Quit Using Tobacco: 42; packs per day: 1.5; Cigarettes Per Day: 30; Smoking End Date: 30+Yr ago; Second Hand Exposure: No; Do You Dip or Chew Tobacco: No; Hx Alcohol Use: No Hx Substance Use: No Preferred Language: Citizen Of [place] Communication Ability: Effective Visual Impairment: Partially Limited Hearing Ability: Hard of Hearing Composing Room Machinist Required: No Beliefs That Will Affect Care: None marital status: Current Living Situation: Spouse Current Living Situation Comment: lives at home with current occupational status: retired 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 How many Children do You have: 1 Feels Safe at Home: Yes Safety Concerns: Feels Safe At This Time Childhood Exposure to Second-Hand Smoke: Yes caffeine: Yes (coffee once per day) during the past year weight has: remained stable Dental Care, Regularly: Yes Physical Activity Frequency: 1-2 Times per Week Seatbelt Use: always Sunscreen Use: No Assistive Devices: Hospital Bed and Oxygen - Continuous Review of Systems Review of Systems: All systems reviewed & are unremarkable except as noted in HPI & below Gastrointestinal: + abdominal pain (RUQ most prominent) an d + constipation Physical Exam Physical Exam: General: No acute distress, nondiaphoretic, well-developed, well-nourished. Skin: Warm, dry. No rashes or peripheral edema noted. Cardiac: Regular rate and rhythm without murmurs gallops or rubs. Pulm: Clear to auscultation bilaterally without wheezes, rales or rhonchi. Normal respiratory effort. 98% on room air. Abdominal: Soft, nondistended. Diffuse tenderness to palpation throughout abdomen, most prominent in RUQ. Voluntary guarding present. Bowel sounds present. Neuro: A&O x3. No focal neurological deficits. Results & Data Results & Data Vital Signs (Past 12 Hours) Vital Signs Temp Pulse Resp BP Pulse Ox O2 Del Method 01/13/25 10:00 90 01/13/25 10:00 149/69 H 01/13/25 09:42 84 20 94 01/13/25 09:30 156/77 H 01/13/25 09:27 83 18 94 01/13/25 09:21 81 17 01/13/25 09:19 146/111 H 01/13/25 08:48 72 18 97 01/13/25 08:31 168/86 H 01/13/25 08:30 79 20 100 01/13/25 08:15 79 23 96 01/13/25 08:15 197/100 H 01/13/25 08:12 81 01/13/25 08:00 172/91 H 01/13/25 07:57 76 18 99 01/13/25 07:55 172/94 H 01/13/25 07:36 100 Room Air 01/13/25 06:37 97.9 F 74 18 197/87 H 100 Room Air Laboratory Results Reviewed CBC with differential, CMP/chemistries, UA Diagnostic Findings Reviewed CT A/P, gallbladder ultrasound Supervising Physician Co-Signing Physician Notes PA Supervision Note: I personally saw and examined the patient. I verified all escudero points and agree with ALLY Oro with the following exceptions and/or additions: S-Pt here with epigastic abd pain, found to have acute cholecystitis. Pt seen after return from [facility] shanna, doing better. O- Vitals reviewed Gen: [AAOx3, NAD] HEENT: [anicteric sclerae, EOMI] CV: [RRR no mgr nl S1S2] Pulm: [CTAB no wcr] Abd: [+BS soft NT ND no masses or hernias, incisional sites inspected and c/d/i] Ext: [no edema, 2+ DP pulses] Skin: [no rashes, warm/dry] Neuro: [full strength throughout] CBC, BMP, LFTs reviewed A/P-74 yo male with history as above, here with acute cholecystitis, now s/p lap shanna, improved continue pain meds as needed, slowly advance diet, possible dc to home tomorrow PG Care Time/CCT Total # of Minutes Spent Total Time Spent with Patient: Total time spent is greater than 50% in coordination of care (as documented) at patient's floor/unit and/or counseling patient: Coding Level of Care Code 63591 INT INP/OBS CARE MIN Diagnoses Acute cholecystitis K81.0 Asthma J45.909 Hypertension I10
[2025-01-13] MEDS ORDERED: MoRPHine SULFATE 10 MG/ML CARP/VIAL IV PRN ×3 (10:37→18:54)
[2025-01-13] MEDS ORDERED: ALBUTEROL 0.083% NEBU SOLN 3 ML VIAL INH PRN (10:37)
[2025-01-13] MEDS ORDERED: ATROPINE SULFATE 0.1 MG/ML 10ML SYR IV PRN (10:37)
[2025-01-13] MEDS ORDERED: ONDANSETRON INJ 2 MG/ML 2 ML VIAL IV PRN ×2 (10:37→14:18)
[2025-01-13] MEDS ORDERED: MEPERIDINE HCL 25 MG/ML CARP/VIAL IV PRN (10:37)
--- NOTE | 2025-01-13 10:37 | Anesthesiology Consultation ---
Date of Service January 13, 2025 Assessment & Plan (1) Acute cholecystitis: Chart Review Chart Review: Acceptable Risk for Surgery Consults Requested none ASA [id number] Proposed Anesthesia Anesthesia Type: General Risk / Benefits Reviewed With: PT / POA / Parent / Guardian, Accepts Plan and Informed Consent Obtained History Surgery Operation Date: 01/13/25 12:00 Proposed Procedures p Laparoscopic Cholecystectomy - Dl Johns MD Height/Weight Height: 5 ft 11 in Weight: 110.8 kg Allergies Allergy/AdvReac Type Severity Reaction Status Date / Time oxycodone AdvReac Unknown Hallucinati Verified 01/13/25 09:40 ng Medications Home Medications Medication Instructions Recorded Confirmed Last Taken allopurinol 100 mg tablet 100 mg PO BID 06/13/19 01/13/25 11/06/24 atorvastatin 20 mg tablet 20 mg PO HS 06/13/19 01/13/25 07/20/24 fluoxetine 20 mg tablet 10 mg PO QAM 06/13/19 01/13/25 11/06/24 tamsulosin 0.4 mg capsule 0.4 mg PO BID #60 caps 09/22/21 01/13/25 11/06/24 cyclobenzaprine 5 mg tablet 5 mg PO TID PRN Back Pain 08/03/23 01/13/25 07/20/24 montelukast 10 mg tablet 10 mg PO QAM 07/13/24 01/13/25 07/20/24 pregabalin 50 mg capsule (Lyrica) 50 mg PO BID #180 caps 10/20/24 01/13/25 11/06/24 NPO Date Last Intake of Fluids: 01/13/25 Time Last Intake of Fluids: 03:00 Date Last Intake of Solids: 01/12/25 Time Last Intake of Solids: 23:00 Past Medical History Medical History (Updated 01/13/25 @ 10:34 by Ann-Marie Basilio DO) Hypertrophy of both inferior nasal turbinates History of asthma remote hx Chronic sinusitis no known current infection. Arthritis Bulging lumbar disc Lumbar spinal stenosis Anxiety History of migraine headaches History of Lyme disease History of prostate cancer dx 2018 , hx radiation. History of COVID-21 June 2022 > not hospitalized Vertigo admitted to [facility] for this on 02/15/23. Minor occurences since with vertigo on occ/ no recent. Hypertension Lumbar radiculopathy Stroke no official dx of/ has had Brain MRI's in hx: "indicated might have been something, probably past stroke, never sure , never confirmed" per pt. Brain MRI [place] approx 2018 after back sx couldn't use arm. determined to be positional / disc issues. History of anesthesia reaction WITH APPENDECTOMY SURGERY WAS TOLD WOKE UP VIOLENT, DOES NOT REMEMBER Spinal stenosis Neuropathy BOTH FEET History of gout Sleep apnea CPAP Hypercholesterolemia Exercise / Class Metabolic Activity II 4-5 Yardwork/Stairs/Walk up hill Past Family History Family History Brother No problems noted. Other No family history of adverse response to anesthesia No family history of bleeding disorder Past Surgical History Surgical History History of endoscopy upper History of right cataract surgery History of arthroscopy of left knee Hx of left cataract extraction S/P epidural steroid injection History of endoscopic sinus surgery History of appendectomy History of colonoscopy History of carpal tunnel release of both wrists H/O elbow surgery X2 History of back surgery X2 > lumbar Past Anesthesia History No Hx of Anesthesia Complications and No Family Hx of Anesthesia Complications History of PONV No Hx of PONV and No Hx of Motion Sickness Social History Smoking Status: Former smoker tobacco type: cigarettes Smoking cigarettes per day: 30 Do You Dip or Chew Tobacco: No Smoking End Date: 30+Yr ago Hx Alcohol Use: No Alcohol type: beer, wine and hard liquor alcohol intake frequency: other Hx Substance Use: No substance use type: does not use Physical Exam Vital Signs Last Vital Signs Temp 36.6 C 01/13/25 06:37 Pulse 78 01/13/25 10:28 Resp 20 01/13/25 10:28 BP 159/90 H 01/13/25 10:28 Pulse Ox 98 01/13/25 10:28 O2 Del Method Room Air 01/13/25 10:28 ENMT Mouth: no TMJ abnormality Thyromental Distance: > or= 3.5 Finger Breadths Mallampati Class: III Neck normal visual inspection and trachea midline; neck extension not limited Respiratory normal respiratory effort Auscultation: lungs clear to auscultation bilaterally Cardiovascular Rate/Rhythm: regular rate and regular rhythm Heart Sounds: no murmur Musculoskeletal Spine: normal cervical ROM Extremities: full ROM of extremities Neurologic moves all extremities Psychiatric Orientation: alert and oriented x 3 Testing Laboratory Results 01/13/25 07:00 01/13/25 07:00 Urine Color Yellow 01/13/25 07:00 Urine Appearance Clear (Clear) 01/13/25 07:00 Urine pH 7.0 (4.5-7.5) 01/13/25 07:00 Ur Specific [place] 1.017 (1.000-1.030) 01/13/25 07:00 Urine Protein Negative (Negative) 01/13/25 07:00 Urine Glucose (UA) Negative (Negative) 01/13/25 07:00 Urine Ketones Negative (Negative) 01/13/25 07:00 Urine Nitrite Negative (Negative) 01/13/25 07:00 Ur Leukocyte Esterase Negative (Negative) 01/13/25 07:00 Electrocardiogram Date: 01/13/25 Findings: + NSR @ (80bpm) Chest X-Ray Date: 11/06/24 Findings: + NAD Echocardiogram Date: 01/15/23 EF: 55% LV Function: normal RWMA: + none Valvular Disease: + no significant valvular disease mild MR
--- NOTE | 2025-01-13 10:53 | History & Physical Report ---
Date of Service January 13, 2025 Assessment & Plan (1) Acute cholecystitis: Plan: 74-year-old presents with acute cholecystitis. Discussed risks and benefits of a laparoscopic cholecystectomy. All questions were answered and he is agreeable to proceed. Consent has been obtained. Will take him to the operating room at the earliest convenience. History of Present Illness Primary Care Provider: Anisha Arreaga 74-year-old gentleman presents with 1 day history of severe right upper quadrant abdominal pain, no appetite, nausea. No fevers or chills. No other complaints. Ultrasound demonstrates acute cholecystitis. Allergies Allergy/AdvReac Type Severity Reaction Status Date / Time oxycodone AdvReac Unknown Hallucinati Verified 01/13/25 09:40 ng Home Medications Medication Instructions Recorded Confirmed Type allopurinol 100 mg tablet 100 mg PO BID 06/13/19 01/13/25 History atorvastatin 20 mg tablet 20 mg PO HS 06/13/19 01/13/25 History fluoxetine 20 mg tablet 10 mg PO QAM 06/13/19 01/13/25 History tamsulosin 0.4 mg capsule 0.4 mg PO BID #60 caps 09/22/21 01/13/25 Rx cyclobenzaprine 5 mg tablet 5 mg PO TID PRN Back Pain 08/03/23 01/13/25 History montelukast 10 mg tablet 10 mg PO QAM 07/13/24 01/13/25 History pregabalin 50 mg capsule (Lyrica) 50 mg PO BID #180 caps 10/20/24 01/13/25 Rx Past Med/Surg History Problem List Acute cholecystitis Ambulatory dysfunction (Acute) Acute shoulder pain (Acute) Trauma (Acute) Fall (Acute) Lumbar spinal stenosis Urinary urgency Headache Vertigo (Acute) Positive Lyme disease serology (Acute) Stroke-like symptoms (Acute) COVID-19 (Acute) Sensorineural hearing loss (SNHL) of both ears Encounter for pre-operative examination History of prostate cancer (Chronic) RADIATION MAR 2020-APR 2020 Chronic sinusitis, unspecified Nasal polyposis Seasonal allergies Stroke Malignant neoplasm of prostate (Chronic 12/14/19) Bronchitis Elevated PSA Medical History Hypertrophy of both inferior nasal turbinates History of asthma remote hx Chronic sinusitis no known current infection. Arthritis Bulging lumbar disc Lumbar spinal stenosis Anxiety History of migraine headaches History of Lyme disease History of prostate cancer dx 2018 , hx radiation. History of COVID-21 June 2022 > not hospitalized Vertigo admitted to [facility] for this on 02/15/23. Minor occurences since with vertigo on occ/ no recent. Hypertension Lumbar radiculopathy Stroke no official dx of/ has had Brain MRI's in hx: "indicated might have been something, probably past stroke, never sure , never confirmed" per pt. Brain MRI [place] approx 2018 after back sx couldn't use arm. determined to be positional / disc issues. History of anesthesia reaction WITH APPENDECTOMY SURGERY WAS TOLD WOKE UP VIOLENT, DOES NOT REMEMBER Spinal stenosis Neuropathy BOTH FEET History of gout Sleep apnea CPAP Hypercholesterolemia Surgical History History of endoscopy upper History of right cataract surgery History of arthroscopy of left knee Hx of left cataract extraction S/P epidural steroid injection History of endoscopic sinus surgery History of appendectomy History of colonoscopy History of carpal tunnel release of both wrists H/O elbow surgery X2 History of back surgery X2 > lumbar Family History Brother No problems noted. Other No family history of adverse response to anesthesia No family history of bleeding disorder Social History Smoking Status: Former smoker Tobacco Type: Cigarettes Age Started Using Tobacco: 22; Age Quit Using Tobacco: 42; packs per day: 1.5; Cigarettes Per Day: 30; Smoking End Date: 30+Yr ago; Second Hand Exposure: No; Do You Dip or Chew Tobacco: No; Hx Alcohol Use: No Hx Substance Use: No Preferred Language: Irish Communication Ability: Effective Visual Impairment: Partially Limited Hearing Ability: Hard of Hearing Respiratory Services Manager Required: No Beliefs That Will Affect Care: None marital status: Current Living Situation: Spouse Current Living Situation Comment: lives at home with current occupational status: retired current occupation: retired as [employer] How many Children do You have: 1 Feels Safe at Home: Yes Childhood Exposure to Second-Hand Smoke: Yes caffeine: Yes (coffee once per day) during the past year weight has: remained stable Dental Care, Regularly: Yes Physical Activity Frequency: 1-2 Times per Week Seatbelt Use: always Sunscreen Use: No Assistive Devices: Walker Review of Systems Review of Systems: All systems reviewed & are unremarkable except as noted in HPI & below Physical Exam Constitutional: WD/WN, vitals as above Eyes: PERRL, conjunctivae normal, anicteric sclerae Neck: trachea midline, no thyromegaly Respiratory: normal respiratory effort, lungs clear to auscultation Cardiovascular: RRR, no murmur, no edema Gastrointestinal (Abdomen): Inspection/Auscultation: abdomen normal to inspection; abdomen not distended Percussion/Palpation: + abdomen tender ( Right upper quadrant) and abdomen soft; no guarding Skin: no rashes, warm and dry Psychiatric: A+Ox3, euthymic affect Results & Data Results & Data Vital Signs (Past 12 Hours) Vital Signs Temp Pulse Pulse Resp BP BP Pulse Ox 01/13/25 10:28 78 20 159/90 H 98 01/13/25 10:00 90 01/13/25 10:00 149/69 H 01/13/25 09:42 84 20 94 01/13/25 09:30 156/77 H 01/13/25 09:27 83 18 94 01/13/25 09:21 81 17 01/13/25 09:19 146/111 H 01/13/25 08:48 72 18 97 01/13/25 08:31 168/86 H 01/13/25 08:30 79 20 100 01/13/25 08:15 79 23 96 01/13/25 08:15 197/100 H 01/13/25 08:12 81 01/13/25 08:00 172/91 H 01/13/25 07:57 76 18 99 01/13/25 07:55 172/94 H 01/13/25 07:36 100 01/13/25 06:37 36.6 C 74 18 197/87 H 100 O2 Del Method 01/13/25 10:28 Room Air 01/13/25 10:00 01/13/25 10:00 01/13/25 09:42 01/13/25 09:30 01/13/25 09:27 01/13/25 09:21 01/13/25 09:19 01/13/25 08:48 01/13/25 08:31 01/13/25 08:30 01/13/25 08:15 01/13/25 08:15 01/13/25 08:12 01/13/25 08:00 01/13/25 07:57 01/13/25 07:55 01/13/25 07:36 Room Air 01/13/25 06:37 Room Air Laboratory Results 01/13/25 Range/Units 07:00 WBC 10.77 (4.8-10.8) K/ul RBC 4.66 L (4.70-6.10) M/uL Hgb 14.7 (14.0-18.0) g/dl Hct 42.9 (42.0-52.0) % MCV 92.1 (80.0-100.0) fL MCH 31.5 (25.0-34.0) pg MCHC 34.3 (32.0-36.0) g/dL RDW Std Deviation 46.4 H (36.4-46.3) fL RDW Coeff of Sonia 13.7 (11.5-14.5) % Plt Count 150 (130-400) K/uL MPV 10.4 (9.4-12.4) fL Immature Gran % (Auto) 0.5 % Neut % (Auto) 74.0 % Lymph % (Auto) 15.1 % Glynn % (Auto) 8.4 % Eos % (Auto) 1.7 % Baso % (Auto) 0.3 % Neut # (Auto) 7.97 H (1.40-6.50) K/uL Lymph # (Auto) 1.63 (1.20-3.40) K/uL Glynn # (Auto) 0.91 H (0.11-0.59) K/uL Eos # (Auto) 0.18 (0.00-0.50) K/uL Baso # (Auto) 0.03 (0.00-0.20) K/uL Immature Gran # (Auto) 0.05 (0.01-0.20) K/uL Sodium 139 (136-145) mmol/L Potassium 4.0 (3.5-5.1) mmol/L Chloride 104 (98-107) mmol/L Carbon Dioxide 25 (21-32) mmol/L Anion Gap 10 (3-11) BUN 13 (6-23) mg/dl Creatinine 1.13 (0.6-1.4) mg/dl Est Cr Clr Drug Dosing 74.8 ml/min eGFR 69.06 BUN/Creatinine Ratio 11.5 (10-20) Glucose 93 (70-99(Fasting)) mg/dl Calcium 10.0 (8.6-10.3) mg/dl Total Bilirubin 0.8 (0.2-1.0) mg/dl AST 24 (13-39) U/L ALT 25 (7-52) U/L Alkaline Phosphatase 98 (34-104) U/L Troponin I High Sens 7.3 (0-20) pg/ml Total Protein 7.6 (6.0-8.3) gm/dl Albumin 4.8 (3.4-5.0) gm/dl Globulin 2.8 (2.5-4.0) gm/dl Albumin/Globulin Ratio 1.7 (0.9-2) Lipase 16 (11-82) U/L Urine Color Yellow Urine Appearance Clear (Clear) Urine pH 7.0 (4.5-7.5) Ur Specific [place] 1.017 (1.000-1.030) Urine Protein Negative (Negative) Urine Glucose (UA) Negative (Negative) Urine Ketones Negative (Negative) Urine Blood Negative (Negative) Urine Nitrite Negative (Negative) Urine Bilirubin Negative (Negative) Urine Urobilinogen Negative (Negative) Ur Leukocyte Esterase Negative (Negative) Urine Comment Diagnostic Findings Clinical history: Upper abdominal pain Technique: Sonography was performed of the right upper quadrant of the abdomen Findings: There is mild fatty infiltration of the liver, with suspected focal sparing of fatty infiltration adjacent to the romeo hepatis. No definite liver mass is seen A gallstone is present in the gallbladder neck. The gallbladder is distended with some adjacent fluid. Overlying tenderness was detected. The gallbladder wall is mildly thickened at 3.5 mm There is no intrahepatic or extrahepatic bile duct dilatation. The common bile duct measures 5 mm The right kidney measures 12.1 cm in length. There is no hydronephrosis. No definite renal calculus or mass is seen. There is a 1.3 cm right renal cyst The visualized pancreas, aorta, and IVC appear unremarkable. No ascites is seen Impression: 1. Acute cholecystitis 2. Mild fatty infiltration of the liver 3. Small right renal cyst
[2025-01-13] MEDS ORDERED: DEXAMETHASONE SOD INJ 4 MG/ML VIAL ONE (11:09)
[2025-01-13] MEDS ORDERED: LIDOCAINE 2% 2 ML VIAL/AMP(20MG/ML) INFIL ONE (11:09)
[2025-01-13] MEDS ORDERED: ROCURONIUM BROMIDE 10 MG/ML 5 ML VIAL IV ONE ×2 (11:09→12:13)
[2025-01-13] MEDS ORDERED: ONDANSETRON INJ 2 MG/ML 2 ML VIAL ONE (11:09)
[2025-01-13] MEDS ORDERED: PROPOFOL IV EMULSION 10 MG/ML 20 ML VIAL IV ONE (11:09)
[2025-01-13] MEDS ORDERED: ACETAMINOPHEN 1000 MG/100 ML IV IV ONE (11:16)
[2025-01-13] MEDS: metroNIDAZOLE 500 MG/100 ML BAG IV STA (11:17)
[2025-01-13] MEDS ORDERED: ePHEDrine sulfate 50 MG/5 ML SYR ONE (11:43)
[2025-01-13] MEDS ORDERED: PHENYLEPHRINE 100MCG/ML 5ML SYR ONE (11:59)
[2025-01-13] MEDS ORDERED: PHENYLEPHRINE HCL 10 MG/ML VIAL ONE (12:30)
[2025-01-13] MEDS: FLOSEAL HEMOSTATIC MATRIX 10ML TOP ONE (12:37)
[2025-01-13] MEDS ORDERED: SUGAMMADEX SODIUM 200 MG/2 ML VIAL IV ONE (12:38)
[2025-01-13] MEDS: BUPIVACAINE/EPINEPHRINE 0.25% 1:200,000 30 ML VIAL ONE (12:41)
[2025-01-13] MEDS ORDERED: ALBUTEROL HFA 8 GM INHALER INH ONE (12:57)
--- NOTE | 2025-01-13 13:26 | Operative Report ---
Post Operative Report Pre & Post Diagnosis Operation Date: 01/13/25 12:00 Pre-Op Diagnosis: Acute cholecystitis Post-Op Diagnosis: Acute cholecystitis I identified the patient and participated in the time-out.: Yes Procedure Operation Date: 01/13/25 12:00 Actual Procedures p Laparoscopic Cholecystectomy(Not Applicable) - Dl Johns MD Surgeon Dl Johns MD Chamber Magistrate none Estimated Blood Loss 5 Findings Consistent with Post-Op Diagnosis Specimens Gallbladder Drains none Anesthesia Type General Complications none Description of Procedure the patient was taken to the operating room, and placed supine on the operating table. A timeout was performed, perioperative antibiotics were administered, SCD boots were placed. After adequate anesthesia and analgesia was obtained, the abdomen was prepped and draped in the normal sterile fashion. Local anesthetic was injected into and around the proposed incision sites. An incision was made with a 15 blade scalpel in the supraumbilical region and carried down to the level of the fascia. The fascia was grasped with a trach hook, and a varies needle was used to enter the abdominal cavity. The abdomen was insufflated to a pressure of 15 mmHg, and a 11 mm trocar was placed in this location. A 10 mm, 30 degree laparoscope was placed into the abdominal cavity, and the abdomen was surveyed. Two 5 mm trochars were placed along the right costal margin, and one 5 mm trocar was placed in the subxiphoid region under direct visualization. The gallbladder was grasped and retracted cephalad and laterally, exposing the triangle of Calot. It was quite distended and was drained with an 18-gauge aspiration needle. The fluid was clear. There was a hydrops. Dissection began in the triangle with a combination of blunt dissection with the [place] dissector, and judicious use of the hook cautery. The cystic duct and cystic artery were dissected free circumferentially, and a critical view of safety was obtained. The cystic duct and cystic artery were clipped and transected, and the gallbladder was removed from the gallbladder fossa with the hook cautery. The camera was switched to a 5 mm, the gallbladder was placed in an Endo Catch bag, and removed via the supraumbilical port site. The camera was switched back to the 10 mm camera, and the abdomen was surveyed again. Hemostasis was checked and attended, and was excellent. The abdomen was copiously irrigated and suctioned free. Again hemostasis was checked and was excellent. All trochars were removed under direct visualization. The abdomen was desufflated. The fascia in the 11 mm port site was closed with a 0 Vicryl suture. The skin was closed with a running 4-0 Monocryl subcuticular stitch. Dermabond was applied. The patient tolerated the procedure without complication, and was transferred in stable condition to the PACU. All instrument, needle, and sponge counts were correct at the end of the case. I attest to the content of the Intraoperative Record and any orders documented therein. Any exceptions are noted below.
[2025-01-13] MEDS ORDERED: ACETAMINOPHEN 325 MG TAB PO PRN (14:18)
[2025-01-13] MEDS ORDERED: MoRPHine SULFATE 4 MG/ML 1 ML CARP\\VIAL IV PRN ×2 (14:18→19:13)
[2025-01-13] MEDS ORDERED: POLYETHYLENE (MIRALAX) 17 GM PACK PO PRN (14:18)
[2025-01-13] MEDS ORDERED: MAGNESIUM HYDROXIDE SUSP 30 ML UDC PO PRN (14:18)
[2025-01-13] MEDS ORDERED: CYCLOBENZAPRINE HCL 5 MG TAB PO PRN (14:18)
[2025-01-13] MEDS: ACETAMINOPHEN 1000 MG/100 ML IV IV ONE (14:19)
[2025-01-13] MEDS: FAMOTIDINE/PF 20 MG/2 ML VIAL IV ONE (14:19)
--- NOTE | 2025-01-13 14:27 | Anesthesiology Progress Note ---
Date of Service January 13, 2025 Anesthesia Post Procedure Vital Signs Vital Signs: Temp Pulse Pulse Pulse Pulse Resp BP 01/13/25 14:12 36.8 C 94 H 16 01/13/25 13:35 97 H 13 01/13/25 13:25 94 H 20 01/13/25 13:15 102 H 16 01/13/25 13:06 36.3 C L 102 H 17 01/13/25 11:07 82 26 H 163/82 H 01/13/25 10:51 78 20 01/13/25 10:28 78 20 01/13/25 10:00 01/13/25 10:00 149/69 H 01/13/25 09:42 84 20 01/13/25 09:30 156/77 H 01/13/25 09:27 83 18 01/13/25 09:21 81 17 01/13/25 09:19 146/111 H 01/13/25 08:48 72 18 01/13/25 08:31 168/86 H 01/13/25 08:30 79 20 01/13/25 08:15 79 23 01/13/25 08:15 197/100 H 01/13/25 08:12 81 01/13/25 08:00 172/91 H 01/13/25 07:57 76 18 01/13/25 07:55 172/94 H 01/13/25 07:36 01/13/25 06:37 36.6 C 74 18 197/87 H BP BP Pulse Ox O2 Del Method O2 Flow Rate 01/13/25 14:12 124/64 94 Nasal Cannula 1 01/13/25 13:35 124/47 L 92 Room Air 01/13/25 13:25 135/60 98 Oxymask 4 01/13/25 13:15 148/55 H 99 Oxymask 8 01/13/25 13:06 146/62 H 98 Oxymask 8 01/13/25 11:07 98 Room Air 01/13/25 10:51 163/82 H 96 Room Air 01/13/25 10:28 159/90 H 98 Room Air 01/13/25 10:00 90 01/13/25 10:00 01/13/25 09:42 94 01/13/25 09:30 01/13/25 09:27 94 01/13/25 09:21 01/13/25 09:19 01/13/25 08:48 97 01/13/25 08:31 01/13/25 08:30 100 01/13/25 08:15 96 01/13/25 08:15 01/13/25 08:12 01/13/25 08:00 01/13/25 07:57 99 01/13/25 07:55 01/13/25 07:36 100 Room Air 01/13/25 06:37 100 Room Air Pain Intensity Abdomen: Pain Intensity: 8 Transfer of Care Handoff Completed per policy Notes Mental Status: alert / awake / arousable Patient Amnestic to Procedure: Yes Nausea / Vomiting: adequately controlled Pain: adequately controlled Airway Patency, RR, SpO2: stable & adequate BP & HR: stable & adequate Hydration State: stable & adequate Anesthetic Complications: no major complications apparent and Pt Satisfied with anesthetic care
[2025-01-13] MEDS: TAMSULOSIN HCL 0.4 MG CAP PO SCH (14:42)
[2025-01-13] MEDS: MONTELUKAST SODIUM 10 MG TABLET PO SCH (14:42)
[2025-01-13] MEDS: PREGABALIN 50 MG CAP PO SCH (15:04)
[2025-01-13] MEDS ORDERED: metroNIDAZOLE 500 MG/100 ML BAG IV SCH (18:00)
[2025-01-13] MEDS: ATORVASTATIN 20 MG TAB PO SCH (20:31)
--- NOTE | 2025-01-14 06:39 | Electrocardiogram Report ---
Test Reason : Blood Pressure : */* mmHG Vent. Rate : 66 BPM Atrial Rate : 66 BPM P-R Int : 128 ms QRS Dur : 96 ms QT Int : 448 ms P-R-T Axes : 42 21 51 degrees QTcB Int : 469 ms Normal sinus rhythm Normal ECG When compared with ECG of 06-Nov-2024 16:17, Criteria for Inferior infarct are no longer Present T wave inversion no longer evident in Inferior leads Confirmed by Alex Allen ([id number]) on 01/14/2025 6:39:05 AM Referred By: REFERRED SELF Confirmed By: Alex Allen
--- NOTE | 2025-01-14 06:40 | Electrocardiogram Report ---
Test Reason : Blood Pressure : */* mmHG Vent. Rate : 80 BPM Atrial Rate : 80 BPM P-R Int : 140 ms QRS Dur : 96 ms QT Int : 408 ms P-R-T Axes : 44 10 38 degrees QTcB Int : 470 ms Normal sinus rhythm Normal ECG When compared with ECG of 13-Jan-2025 07:40, No significant change was found Confirmed by Alex Allen ([id number]) on 01/14/2025 6:40:03 AM Referred By: REFERRED SELF Confirmed By: Alex Allen
[2025-01-14 07:19] LABS: Hematocrit (blood only) 36.0 % (42.0-52.0); Hemoglobin 12.5 g/dl (14.0-18.0); Mean Corpuscular Hemoglobin 32.6 pg (25.0-34.0); Mean Corpuscular Volume 93.8 fL (80.0-100.0); Platelet Count 133 K/uL (130-400); RDW Standard Deviation 47.1 fL (36.4-46.3); Red Blood Count 3.84 M/uL (4.70-6.10); White Blood Count 17.63 K/ul (4.8-10.8)
[2025-01-14 07:22] VITALS: RESP 18; TEMP 97.5; O2SAT 92
[2025-01-14 07:43] LABS: Alanine Aminotransferase 23.0 U/L (7-52); Albumin Globulin Ratio 1.8 (0.9-2); Albumin Level 4.1 gm/dl (3.4-5.0); Alkaline Phosphatase 82.0 U/L (34-104); Anion Gap 9.0 (3-11); Bilirubin,Total 0.8 mg/dl (0.2-1.0); Blood Urea Nitrogen 18.0 mg/dl (6-23); Calcium 8.9 mg/dl (8.6-10.3); Carbon Dioxide 27.0 mmol/L (21-32); Chloride 104.0 mmol/L (98-107); Creatinine Clr Calc Pharmacy 72.3 ml/min; Globulin 2.3 gm/dl (2.5-4.0); Glucose 108.0 mg/dl (70-99(Fasting)); Potassium 4.6 mmol/L (3.5-5.1); Sodium 140.0 mmol/L (136-145); Total Protein 6.4 gm/dl (6.0-8.3)
[2025-01-14] MEDS ORDERED: cefTRIAXone SODIUM 2,000 MG/50 ML BAG IV SCH (10:00)
--- NOTE | 2025-01-14 10:43 | Surgery Progress Note ---
Date of Service January 14, 2025 Assessment & Plan (1) Acute cholecystitis: Plan: POD #1 s/p laparoscopic cholecystectomy Doing well. Advance to regular diet. Discharge to home after lunch if tolerating diet. Follow-up in 2 weeks. Admission and Anticipated Discharge Date Admission Date: January 13, 2025 Subjective POD #1 s/p laparoscopic cholecystectomy for acute cholecystitis Doing well. Tolerating liquids. Denies fevers or chills. Physical Exam Physical Exam: NAD, A&O x 3 Abdomen: Soft, NTND Incisions: C/D/I; Dermabond in place Results & Data Vital Signs (Past 12 Hours) Vital Signs Temp Pulse Pulse Resp BP BP Pulse Ox 01/14/25 07:19 36.4 C L 73 18 119/67 92 01/14/25 03:06 36.6 C 71 16 101/58 L 94 01/14/25 02:46 75 19 94 01/13/25 22:49 36.9 C 78 18 115/62 95 O2 Del Method 01/14/25 07:19 Room Air 01/14/25 03:06 Room Air 01/14/25 02:46 01/13/25 22:49 Room Air
[2025-01-14 11:40] VITALS: BP 115/62; PULSE 97
--- NOTE | 2025-01-14 18:43 | Discharge Summary ---
"Discharge Summary Date of Service January 14, 2025 Principal Dx & Hospital Course #1 = Principal Diagnosis (1) Acute cholecystitis: (2) Asthma: (3) Hypertension: Plan Cooper is a pleasant 74-year-old man with past medical history of hypertension, hypercholesterolemia, asthma, gout, anxiety, arthritis, lumbar radiculopathy, and history of prostate cancer. He presented with acute onset of abdominal pain that began the night prior to admission. His imaging revealed acute cholecystitis on presentation. He was observed overnight for management of such. #Acute cholecystitis confirmed on gallbladder ultrasound on presentation - General surgery consulted - s/p lyndsey otero on 01/[address] Johns - Was given a dose of ceftriaxone and metronidazole in the ED for empiric coverage. No further antibiotics needed since source control was obtained - Leukocytosis postoperatively likely secondary to steroid/stress reaction from surgery. Afebrile - Mild acute blood loss anemia secondary to surgery - Hgb stable at 12.5. No signs of ongoing bleeding - Well-tolerated advancement to regular diet postoperatively - Pain control with Ibuprofen/Tylenol for mild pain and Percocet 5-325 mg Q6h PRN for severe pain. Counseled on monitoring total dose of acetaminophen within a 24-hour period if taking Tylenol and Percocet. Also counseled on refraining from driving or operating heavy machinery while taking Percocet #Asthma | KRISTINE - Continue montelukast 10 mg daily - CPAP HS #Hypertensionno longer on antihypertensive regimen after weight loss - Blood pressure elevated on admission likely due to acute pain. Blood pressure normalized postoperatively #Hypercholesterolemiacontinue atorvastatin 20 mg HS #Goutcontinue allopurinol 100 mg twice daily #Anxietycontinue fluoxetine 10 mg daily #Neuropathy | Sciaticacontinue Lyrica 50 mg twice daily #Chronic back paincontinue home cyclobenzaprine 5 mg 3 times daily as needed #History of prostate cancercontinue tamsulosin 0.4 mg twice daily VTE PPx: Low risk. Short length of stay. SCDs Dispo: Discharged home 01/14 Notes For Next Care Provider Medication Changes From Visit Percocet 53 25 every 6 hours as needed for severe pain Admission HPI Per Admitting Provider Cooper is a pleasant 74-year-old man with past medical history of hypertension, asthma, gout, arthritis, anxiety, lumbar radiculopathy, hypercholesterolemia, and history of prostate cancer. He presented from home with acute abdominal pain. At the time of my exam, the patient was lying in bed in no acute distress with his present at bedside. He states last night 01/12/25 around 2300 he developed acute onset of lower abdominal pain and felt a burning sensation in his upper abdomen. This kept him awake throughout the night. He attempted to have a bowel movement and took Pepto-Bismol, both without any symptom relief. His pain initially started as colicky pain, but now is constant. Pain is now most prominent in his RUQ though has diffuse pain throughout his abdomen. He denies any recent fever, chills. Denies recent nausea, vomiting, diarrhea. He has chronic back pain but denies exacerbation of back pain or right shoulder pain. Denies chest pain, shortness of breath, urinary symptoms. He has felt constipated x 3 days and notes that he does not typically have any issues with his bowels. Denies BRBPR or dark stools. He denies any prior similar episodes. He denies any food intolerance, no issues with fatty foods recently. No history of gallstones. Patient reports that he did not take his regular morning medications today. His only recent medication change was a decrease in his allopurinol to 100 mg twice daily. He previously took medications for hypertension, however after losing about 40 pounds, he no longer takes any antihypertensives. He does use a CPAP at bedtime; no daytime oxygen at baseline. He denies an allergy to oxycodone, noting he had some withdrawal symptoms when coming off of oxycodone after being on it for 1 month. He denies prior history of a stroke - he explains there was concern of a stroke on head imaging about 4 years ago but after further workup this was ruled out. Vitals on admission significant for mildly elevated BP at 149/69 (acceptable with acute pain); vitals otherwise stable. Labs on admission are overall unremarkable. No leukocytosis but mildly elevated neutrophil count. Hemoglobin and platelets stable. Electrolytes WNL. Renal function WNL. Liver enzymes WNL. Troponin negative at 7.3. UA negative. CT A/P on admission reveals cholelithiasis without definite acute cholecystitis, bilateral renal cysts, diverticulosis without definite diverticulitis, small right inguinal hernia containing only fat. Gallbladder ultrasound reveals acute cholecystitis with a gallstone present in the gallbladder neck, gallbladder is distended with some adjacent fluid, gallbladder wall mildly thickened at 3.5 mm, mild fatty infiltration of the liver. CBD 5 mmno intrahepatic or extrahepatic bile duct dilation. We discussed code status, patient wishes to be a full code. Discharge Exam General: No acute distress, nondiaphoretic, well-developed, well-nourished. Skin: Warm, dry. No rashes or peripheral edema noted. Cardiac: Regular rate and rhythm without murmurs gallops or rubs. Pulm: Clear to auscultation bilaterally without wheezes, rales or rhonchi. Normal respiratory effort. 98% on room air. Abdominal: Soft, nondistended. Expected postoperative tenderness. Incision sites covered in Dermabond. Bowel sounds present. Neuro: A&O x3. No focal neurological deficits. Discharge Plan Discharge Items Patient Disposition: Home - Self-Care Reason For Visit: ACUTE CHOLECYSTITIS Discharge Diagnosis: acute cholecystitis Condition on Discharge: Good Activity: Per Instructions section Lifting: No more than 10 pounds Sexual Activity: Wait until after follow-up appointment Exercise/Sports: Wait until after follow-up appointment Non-emergency contact: Surgeon Call non-emergency contact if: you have any medication questions, your symptoms worsen, your pain is not controlled, your pain is worsening, your pain is unusual for you, your temperature is above 101.5, your wound has increased redness, your wound has increased drainage and your wound pain has increased Follow-up/Referrals: Anisha Arreaga PA-C [Primary Care Provider] - (Follow-up in 2 weeks) Diet: Regular Addtl Attending Provider Instructions: Jeferson Gamboa were admitted to the hospital with acute cholecystitis. You had a laparoscopic cholecystectomy (surgical removal of your gallbladder) on 01/[address] Johns. You tolerated this procedure well with no complications. You have well-tolerated your diet advancements. You do not need any antibiotics on discharge. You are medically stable for discharge home. Upon discharge from the hospital: * Follow the instructions from your surgical team listed below. * Take ibuprofen 600 mg every 6 hours as needed for mild pain. * Take Percocet 1 tablet every 4 hours as needed for severe pain. Do not drive or operate heavy machinery while taking Percocet as it contains oxycodone which is a narcotic pain medication. * Continue your home medications as prescribed. There have been no changes to your usual home medications during this hospitalization. * Follow-up with your surgical team in 2 weeks. * Follow-up with your PCP in 1-2 weeks. Please return to the hospital if you experience any of the following: Fever of 101 F or higher, inability to tolerate oral intake, severe or worsening abdominal pain, chest pain, difficulty breathing, passing out, confusion, or any other symptoms concerning for you. Post-Surgical ~Discharge Instructions Activity Recommendations: - lifting limitation: (20 pounds for 2 weeks), - exercise/sex/sports limit: (nonstrenuous for 2 weeks), - driving or machine use limit: (none for 1 week), - Shower/bathe limit: (may shower beginning tomorrow) Diet: - Resume previous diet SPECIAL CARE INSTRUCTIONS: - May shower in 24 hours. Let water run over area and pat dry. - Leave steri strips on for one week. - Call the surgeon's office with any questions or concerns - - (ex. temperature higher than 101 degrees F, excessive bleeding or pain). MEDICATIONS: - Resume previous medications unless instructed otherwise by your surgeon. - Ibuprofen 600 mg every 6 hours with food - Percocet 1 every 4 hours, as needed for pain FOLLOW UP VISIT: - If not already scheduled, please call the office to schedule a two week follow-up appointment. Office number Pending Studies at Discharge: Yes (Pathology of gallbladder) Stand-Alone Forms: My [facility] iPositioning, Smoking Cessation Medications and DC Order Prescriptions: New oxycodone-acetaminophen [Percocet] 5-325 mg tablet 1 tab PO Q6H PRN (Reason: pain) Qty: 10 0RF Continued cyclobenzaprine 5 mg tablet 5 mg PO TID PRN (Reason: Back Pain) montelukast 10 mg tablet 10 mg PO QAM tamsulosin 0.4 mg capsule 0.4 mg PO BID Qty: 60 5RF Rx Instructions: Twice a day with food. pregabalin [Lyrica] 50 mg capsule 50 mg PO BID Qty: 180 1RF atorvastatin 20 mg Tablet 20 mg PO HS allopurinol 100 mg Tablet 100 mg PO BID fluoxetine 20 mg Tablet 10 mg PO QAM Discharge Orders: Discharge Order (Routine); Ordered 01/14/25 Ordered By: Dl Johns Admission Data Admit Date/Time: 01/13/25 11:11 Attending Provider: Lali Hartmann Admit Provider: Lali Hartmann Primary Care Provider: Anisha Arreaga Other Providers: Dl Johns; Lali Hartmann Other Interventions: Discharge Summary Assessment (RN) Last Done: 01/14/25 11:35 Hospital Stay Data Consultations 01/13/25 09:45 Consult General Surgery Stat ED Decision to Admit Stat Procedures Performed Operation Date: 01/13/25 12:00 Actual Procedures p Laparoscopic Cholecystectomy(Not Applicable) - Dl Johns MD Diagnostic Imagining Performed Abdomen/Pelvis CT 01/13/25 07:14 Clinical History: Abdominal pain and nausea Technique: Axial computed tomography images were obtained of the abdomen and pelvis after the administration of intravenous contrast. Comparison is made to the prior CT dated 11/06/2024. Findings: The liver is overall of normal size, attenuation, and contour with no sign of cirrhosis or significant fatty infiltration. No liver mass lesion is seen. The portal vein is patent. A gallstone is again seen. The gallbladder is mildly distended. There is no appreciable gallbladder wall thickening or adjacent inflammatory change. No bile duct dilatation is noted. The spleen is of normal size. No focal splenic lesion is evident. The pancreas appears normal with no sign of acute or chronic pancreatitis and no mass lesion noted. The pancreatic duct is of normal caliber. The adrenal glands appear unremarkable. There are 2 small right renal calculi, each measuring approximately 3 mm. There is no hydronephrosis or perinephric stranding. No renal mass lesion is identified. There is a 1.2 cm left renal cyst and there is a 9 mm right renal cyst The aorta is of normal caliber. No abdominal adenopathy is seen. There is a small umbilical hernia containing only fat The stomach appears normal. There is no sign of small bowel obstruction. There is diverticulosis without definite diverticulitis. There is no sign of appendicitis. No free intraperitoneal fluid or air is identified. No distal ureteral or bladder calculi are seen. No bladder mass lesion is evident. The iliac arteries are of normal caliber. No pelvic adenopathy is noted. There is a small right inguinal hernia containing only fat. There are metallic foci within the prostate The lungs bases appear clear. Lumbar degenerative disc disease is seen. There is an unchanged L4 compression fracture. No focal osseous lesion is seen Impression: 1. Cholelithiasis without definite acute cholecystitis 2. Bilateral renal cysts 3. Diverticulosis without definite diverticulitis 4. Small right inguinal hernia containing only fat ACT 112: Positive. There are findings on this exam that require communication between the performing entity and the patient following Patient Test Result Information Act ([place] ACT 112) guidelines. Electronically signed by Shahram Lee 01-13-2025 08:22 AM Gallbladder Ultrasound 01/13/25 08:37 Clinical history: Upper abdominal pain Technique: Sonography was performed of the right upper quadrant of the abdomen Findings: There is mild fatty infiltration of the liver, with suspected focal sparing of fatty infiltration adjacent to the romeo hepatis. No definite liver mass is seen A gallstone is present in the gallbladder neck. The gallbladder is distended with some adjacent fluid. Overlying tenderness was detected. The gallbladder wall is mildly thickened at 3.5 mm There is no intrahepatic or extrahepatic bile duct dilatation. The common bile duct measures 5 mm The right kidney measures 12.1 cm in length. There is no hydronephrosis. No definite renal calculus or mass is seen. There is a 1.3 cm right renal cyst The visualized pancreas, aorta, and IVC appear unremarkable. No ascites is seen Impression: 1. Acute cholecystitis 2. Mild fatty infiltration of the liver 3. Small right renal cyst Electronically signed by Shahram Lee 01-13-2025 09:32 AM Pending Results Patient Have Any Pending Studies at Discharge: No Discharge Instructions Given to Patient (Per Discharging Provider) Cooper, You were admitted to the hospital with acute cholecystitis. You had a laparoscopic cholecystectomy (surgical removal of your gallbladder) on 01/[address] Johns. You tolerated this procedure well with no complications. You have well-tolerated your diet advancements. You do not need any antibiotics on discharge. You are medically stable for discharge home. Upon discharge from the hospital: * Follow the instructions from your surgical team listed below. * Take ibuprofen 600 mg every 6 hours as needed for mild pain. * Take Percocet 1 tablet every 4 hours as needed for severe pain. Do not drive or operate heavy machinery while taking Percocet as it contains oxycodone which is a narcotic pain medication. * Continue your home medications as prescribed. There have been no changes to your usual home medications during this hospitalization. * Follow-up with your surgical team in 2 weeks. * Follow-up with your PCP in 1-2 weeks. Please return to the hospital if you experience any of the following: Fever of 101 F or higher, inability to tolerate oral intake, severe or worsening abdominal pain, chest pain, difficulty breathing, passing out, confusion, or any other symptoms concerning for you. Post-Surgical ~Discharge Instructions Activity Recommendations: - lifting limitation: (20 pounds for 2 weeks), - exercise/sex/sports limit: (nonstrenuous for 2 weeks), - driving or machine use limit: (none for 1 week), - Shower/bathe limit: (may shower beginning tomorrow) Diet: - Resume previous diet SPECIAL CARE INSTRUCTIONS: - May shower in 24 hours. Let water run over area and pat dry. - Leave steri strips on for one week. - Call the surgeon's office with any questions or concerns - - (ex. temperature higher than 101 degrees F, excessive bleeding or pain). MEDICATIONS: - Resume previous medications unless instructed otherwise by your surgeon. - Ibuprofen 600 mg every 6 hours with food - Percocet 1 every 4 hours, as needed for pain FOLLOW UP VISIT: - If not already scheduled, please call the office to schedule a two week follow-up appointment. Office number Supervising Physician Co-Signing Physician Notes ALLY Supervision Note: I did not personally see or examine the patient today, but I verified all [place] points of ALLY Oro's assessment and plan with the following exceptions/additions: None Total Time Total Time Spent Total Time Spent (In Minutes): Greater than 30 minutes spent completing this discharge process including direct patient care, medication reconciliation, documentation, review of labs and images, and coordination of care. Coding Level of Care Code 87323 INP/OBS DISCH >30 MIN Diagnoses Acute cholecystitis K81.0 Asthma J45.909 Hypertension I10"
== END 2025-01-14 12:30 | disposition home or self-care (01) ==
LOC: SUATTDRO → ED 06:31 → 3W 11:10 → OR 11:49